=== PATIENT | male | born 1955 | race Caucasian/White ===

== ENCOUNTER 2016-09-17 17:27 | Observation (INO) | payer MEDICARE, OTHER ==
--- NOTE | 2016-09-17 18:14 | ED ---
Extremity Problem HPI - General Source: patient, RN notes reviewed Mode of arrival: ambulatory Limitations: no limitations <Johana Harmon - Last Filed: 09/17/16 19:52> <Laci Syed - Last Filed: 09/17/16 19:59> - General Chief complaint: Extremity Problem,Nontraumatic Stated complaint: poss hernia, groin pain Time Seen by Provider: 09/17/16 18:01 - History of Present Illness Initial comments: 60 yo male presents to the ER with cc of right groin possible hernia. Patient states last night he was lifting something and he felt something pop out of his right groin. Patient states she's had a bulge there. Patient states he believes it is a hernia. Patient states that it does hurt to touch but does not hurt if he sits there. Patient states that he is no tenderness to denies any nausea or vomiting with this. Patient states he was concerned due to his continued symptoms in the vault without that he should be seen.Patient denies any recent fever, chills, shortness of breath, chest pain, back pain, abdominal pain, nausea vomiting, numbness or tingling, dysuria or hematuria, constipation or diarrhea, headaches or visual changes, or any other current symptoms. (Johana Harmon) - Related Data Home Medications Medication Instructions Recorded Confirmed Albuterol Inhaler [Ventolin Hfa 2 puff INHALATION RT-Q6H PRN 09/17/16 09/17/16 Inhaler] Atenolol [Atenolol] 50 mg PO DAILY 09/17/16 09/17/16 Dextroamphetamine/Amphetamine 30 mg PO BID 09/17/16 09/17/16 [Adderall] Diazepam [Diazepam] 10 mg PO BID PRN 09/17/16 09/17/16 Hydrocodone/Acetaminophen 1 tab PO BID 09/17/16 09/17/16 [Hydrocodon-Acetaminophn 10-325] oxyCODONE HCL 30 mg PO 5XD 09/17/16 09/17/16 Allergies Allergy/AdvReac Type Severity Reaction Status Date / Time No Known Allergies Allergy Verified 09/17/16 18:10 Review of Systems ROS Other: All systems not noted in ROS Statement are negative. <Johana Harmon - Last Filed: 09/17/16 19:52> ROS Other: All systems not noted in ROS Statement are negative. <Laci Syed - Last Filed: 09/17/16 19:59> ROS Statement: Those systems with pertinent positive or pertinent negative responses have been documented in the HPI. (Johana Harmon) (Laci Syed) Past Medical History Past Medical History: Asthma, Hypertension Additional Past Medical History / Comment(s): back pain History of Any Multi-Drug Resistant Organisms: None Reported Past Surgical History: Back Surgery, Joint Replacement, Orthopedic Surgery Past Psychological History: No Psychological Hx Reported Smoking Status: Never smoker Past Alcohol Use History: None Reported Past Drug Use History: None Reported <Johana Harmon - Last Filed: 09/17/16 19:52> General Exam Limitations: no limitations General appearance: alert, in no apparent distress Eye exam: Present: normal appearance, PERRL, EOMI. Absent: scleral icterus, conjunctival injection, periorbital swelling ENT exam: Present: normal exam, mucous membranes moist Neck exam: Present: normal inspection. Absent: tenderness, meningismus, lymphadenopathy Respiratory exam: Present: normal lung sounds bilaterally. Absent: respiratory distress, wheezes, rales, rhonchi, stridor Cardiovascular Exam: Present: regular rate, normal rhythm, normal heart sounds. Absent: systolic murmur, diastolic murmur, rubs, gallop, clicks GI/Abdominal exam: Present: soft, normal bowel sounds, hernia (Right inguinal groin). Absent: distended, tenderness, guarding, rebound, rigid Extremities exam: Present: normal inspection, full ROM, normal capillary refill. Absent: tenderness, pedal edema, joint swelling, calf tenderness Neurological exam: Present: alert, oriented X3, CN II-XII intact. Absent: motor sensory deficit Psychiatric exam: Present: normal affect, normal mood Skin exam: Present: warm, dry, intact, normal color. Absent: rash <Johana Harmon - Last Filed: 09/17/16 19:52> Medical Decision Making - Radiology Data Radiology results: report reviewed, image reviewed <Johana Harmon - Last Filed: 09/17/16 19:52> <Laci Syed - Last Filed: 09/17/16 19:59> - Medical Decision Making 60-year-old male presents emergency Department chief complaint of right inguinal what appears to be a hernia on exam. We will ultrasound the area and ice the area and see if we can reduce it. At this time the ultrasound was shown that it isn't incarcerated hernia and patient was unable to be reduced in the emergency department. We discussed the case with Dr. Hopper and would like Labs states for the patient and admission. She also like an abdominal x- ray ordered. This time we will do this patient will receive pain medication he will be admitted placed nothing by mouth to Dr. Hopper. The case was discussed the patient is in agreement of the plan. (Johana Harmon) The patient presents with what appears to be an incarcerated hernia. I tried to reduce for over 20 minutes without significant change in the size of the hernia. Ultrasound showed what appears to be incarcerated hernia. The case discussed with Dr. Hopper on-call general surgeon patient will be admitted to her service with labs and x-ray. The patient be kept nothing by mouth. Dr. Syed (Laci Syed) Disposition Time of Disposition: 19:53 Decision Date: 09/17/16 Decision Time: 19:53 <Johana Harmon - Last Filed: 09/17/16 19:52> <Laci Syed - Last Filed: 09/17/16 19:59> Clinical Impression: Incarcerated right inguinal hernia Disposition: [facility] Condition: Stable Referrals: Farrukh Rosenbaum MD [Primary Care Provider] - 1-2 days
--- NOTE | 2016-09-17 19:19 | US ---
EXAMINATION TYPE: US groin extremity RT DATE OF EXAM: 09/17/2016 6:25 PM COMPARISON: NONE CLINICAL HISTORY: Patient states known hernia from 1 year ago that he was able to push back in, lifti ng weight today and felt "pop" again. Patient is pain with obvious right inguinal bulge. TECHNOLOGIST IMPRESSION: 4.7cm probable hernia with a fluid component seen. Valsalva does not change appearance at all, area never moved and no peristalsing seen. With fluid noted I question strangulat ed hernia within right groin IMPRESSION: Positive study suggesting incarcerated bowel loop. Would suggest confirmation with CT.
[2016-09-17] MEDS ORDERED: HYDROmorphone 1 MG/ML 1 ML SYRINGE IVP STA (19:26)
[2016-09-17] MEDS ORDERED: SODIUM CHLORIDE 0.9% 1,000 ML IV STA ×2 (19:42)
[2016-09-17] MEDS ORDERED: HYDROcodone/APAP 5-325MG 1 EACH TAB PO PRN (19:54)
[2016-09-17] MEDS ORDERED: NALOXONE 0.4 MG/ML 1 ML VIAL IV PRN (19:54)
[2016-09-17] MEDS ORDERED: ACETAMINOPHEN TAB 325 MG TAB PO PRN (19:54)
[2016-09-17] MEDS ORDERED: HYDROmorphone 1 MG/ML 1 ML SYRINGE IV PRN (19:54)
[2016-09-17] MEDS ORDERED: ONDANSETRON 4 MG/2 ML VIAL IVP PRN (19:54)
[2016-09-17] MEDS ORDERED: ALBUTEROL NEBULIZED 2.5 MG/3 ML INHALATION PRN (19:55)
[2016-09-17] MEDS ORDERED: DIAZEPAM 5 MG TAB PO PRN (19:55)
[2016-09-17 20:06] LABS: Basophils # (A) 0.1 k/uL (0-0.2); Basophils % (A) 1 %; CH 30.9; CHCM 33.8; Eosinophils # (A) 0.2 k/uL (0-0.7); Eosinophils % (A) 3 %; HCT 40.8 % (39.0-53.0); HDW 2.44; HGB 13.3 gm/dL (13.0-17.5); Luc # (Auto) 0.09; Luc % (Auto) 1; Lymphocytes # (A) 0.8 k/uL (1.0-4.8); Lymphocytes % (A) 13 %; MCH 30.1 pg (25.0-35.0); MCHC 32.7 g/dL (31.0-37.0); Mean Platelet Volume 8.2; Monocytes # (A) 0.3 k/uL (0-1.0); Monocytes % (A) 4 %; Neutrophils # (A) 5.2 k/uL (1.3-7.7); Neutrophils % (A) 78 %; RBC 4.43 m/uL (4.30-5.90); RDW 13.3 % (11.5-15.5); WBC 6.6 k/uL (3.8-10.6); WBC (Perox) 7.15
[2016-09-17 20:19] LABS: ALT 38 U/L (21-72); AST 31 U/L (17-59); Alkaline Phosphatase 79 U/L (38-126); Anion Gap 11 mmol/L; Blood Urea Nitrogen 15 mg/dL (9-20); Calcium 8.8 mg/dL (8.4-10.2); Carbon Dioxide 26 mmol/L (22-30); Chloride 106 mmol/L (98-107); Glucose 96 mg/dL (74-99); Non-African American GFR(MDRD) >60 (>60 ml/min/1.73 sqM); Potassium 4.1 mmol/L (3.5-5.1); Sodium 143 mmol/L (137-145); Total Bilirubin 0.6 mg/dL (0.2-1.3); Total Protein 6.4 g/dL (6.3-8.2)
--- NOTE | 2016-09-17 20:57 | XR ---
EXAMINATION TYPE: XR abdomen 2V DATE OF EXAM: 09/17/2016 8:03 PM COMPARISON: NONE HISTORY: Right-sided groin pain TECHNIQUE: 3 views, upright and supine FINDINGS: There is no pneumoperitoneum or definite pneumatosis. Gas distended loops of bowel are seen in all 4 quadrants, but no definite bowel obstruction. No gas filled bowel loop is noted over the ri ght groin position. Visualized lung bases and pleural spaces are negative. IMPRESSION: NO DEFINITE ACUTE FINDINGS, NONSPECIFIC SCATTERED FINDINGS DESCRIBED.
[2016-09-17] MEDS ORDERED: NON-FORMULARY DRUG (Dextroamphetamine/Amphetamine [Adderall] 30 MG) PO SCH (21:00)
[2016-09-17] MEDS ORDERED: HYDROcodone/APAP 10-325MG 1 EACH TAB PO SCH (21:00)
[2016-09-17 21:42] VITALS: BMI 25.7
[2016-09-18 08:16] LABS: ALT 34 U/L (21-72); AST 24 U/L (17-59); Alkaline Phosphatase 65 U/L (38-126); Anion Gap 9 mmol/L; Blood Urea Nitrogen 12 mg/dL (9-20); Calcium 8.3 mg/dL (8.4-10.2); Carbon Dioxide 30 mmol/L (22-30); Chloride 105 mmol/L (98-107); Glucose 88 mg/dL (74-99); Non-African American GFR(MDRD) >60 (>60 ml/min/1.73 sqM); Potassium 4.5 mmol/L (3.5-5.1); Sodium 144 mmol/L (137-145); Total Bilirubin 0.8 mg/dL (0.2-1.3); Total Protein 5.7 g/dL (6.3-8.2)
[2016-09-18] MEDS ORDERED: ATENOLOL 50 MG TAB PO SCH (09:00)
[2016-09-18 09:11] LABS: Basophils % (A) 0 %; CH 30.3; CHCM 32.4; Eosinophils # (A) 0.2 k/uL (0-0.7); Eosinophils % (A) 4 %; HCT 39.1 % (39.0-53.0); HDW 2.37; HGB 12.8 gm/dL (13.0-17.5); Luc # (Auto) 0.12; Luc % (Auto) 2; Lymphocytes # (A) 1.6 k/uL (1.0-4.8); Lymphocytes % (A) 25 %; MCH 30.7 pg (25.0-35.0); MCHC 32.7 g/dL (31.0-37.0); MCV 93.9 fL (80.0-100.0); Mean Platelet Volume 7.6; Monocytes # (A) 0.3 k/uL (0-1.0); Monocytes % (A) 4 %; Neutrophils # (A) 4.1 k/uL (1.3-7.7); Neutrophils % (A) 65 %; RBC 4.16 m/uL (4.30-5.90); RDW 13.1 % (11.5-15.5); WBC 6.3 k/uL (3.8-10.6); WBC (Perox) 6.69
--- NOTE | 2016-09-18 09:24 | P.GSHP ---
History of Present Illness H&P Date: 09/18/16 CHIEF COMPLAINT: Incarcerated right inguinal hernia. HISTORY OF PRESENT ILLNESS: The patient is a 60-year-old male who presented with known history of right inguinal hernia. He has no previous history of prior groin surgery. He is a previuos gastric bypass patient from over 15 years ago. His highest weight was 350-lbs. He has maintained his weight loss of over 150-lbs. He presented with acute swelling of the right groin and has been unable to reduce his hernia. He reports pain. He was admitted secondary to increased pain. PAST MEDICAL HISTORY: Please see list. PAST SURGICAL HISTORY: Please see list. MEDICATIONS: Please see list. ALLERGIES: Please see list. SOCIAL HISTORY: No illicit drug use FAMILY HISTORY: No reports of Crohn disease or ulcerative colitis. REVIEW OF ORGAN SYSTEMS: CONSTITUTIONAL: No reports of fevers or chills. PHYSICAL EXAM: VITAL SIGNS: Stable GENERAL: Well-developed pleasant in no acute distress. HEENT: No scleral icterus. Extraocular movements grossly intact. Moist buccal mucosa. NECK: Supple without lymphadenopathy. CHEST: Unlabored respirations. Equal bilateral excursions. CARDIOVASCULAR: Regular rate and rhythm. Distal 2+ pulses. ABDOMEN: Soft. Swelling along left groin with incarcerated inguinal hernia. MUSCULOSKELETAL: No clubbing, cyanosis, or edema. ASSESSMENT: 1. Acute incarcerated right inguinal hernia. PLAN: 1. Recommend proceeding with laparoscopic bilateral ingiunal hernia, possible open with mesh placement. Past Medical History Past Medical History: Asthma, Hypertension Additional Past Medical History / Comment(s): back pain, hepatitis C History of Any Multi-Drug Resistant Organisms: None Reported Past Surgical History: Back Surgery, Joint Replacement, Orthopedic Surgery Past Psychological History: No Psychological Hx Reported Smoking Status: Former smoker Past Alcohol Use History: None Reported Past Drug Use History: Marijuana Additional Drug Use History / Comment(s): states occational marijuana use Medications and Allergies Home Medications Medication Instructions Recorded Confirmed Type Albuterol Inhaler [Ventolin Hfa 2 puff INHALATION RT-Q6H PRN 09/17/16 09/17/16 History Inhaler] Atenolol [Atenolol] 50 mg PO DAILY 09/17/16 09/17/16 History Dextroamphetamine/Amphetamine 30 mg PO BID 09/17/16 09/17/16 History [Adderall] Diazepam [Diazepam] 10 mg PO BID PRN 09/17/16 09/17/16 History Hydrocodone/Acetaminophen 1 tab PO BID 09/17/16 09/17/16 History [Hydrocodon-Acetaminophn 10-325] oxyCODONE HCL 30 mg PO 5XD 09/17/16 09/17/16 History Allergies Allergy/AdvReac Type Severity Reaction Status Date / Time No Known Allergies Allergy Verified 09/17/16 18:10 Surgical - Exam Vital Signs Temp Pulse Resp BP Pulse Ox 97.0 F L 69 16 158/87 96 09/17/16 17:43 09/17/16 17:43 09/17/16 17:43 09/17/16 17:43 09/17/16 17:43 Results - Labs 09/18/16 07:19 09/18/16 07:19 Abnormal Lab Results - Last 24 Hours (Table) 09/18/16 Range/Units 07:19 Calcium 8.3 L (8.4-10.2) mg/dL Total Protein 5.7 L (6.3-8.2) g/dL Albumin 3.3 L (3.5-5.0) g/dL Diabetes panel 09/17/16 09/18/16 Range/Units 20:00 07:19 Sodium 143 144 (137-145) mmol/L Potassium 4.1 4.5 (3.5-5.1) mmol/L Chloride 106 105 (98-107) mmol/L Carbon Dioxide 26 30 (22-30) mmol/L BUN 15 12 (9-20) mg/dL Creatinine 0.89 0.93 (0.66-1.25) mg/dL Glucose 96 88 (74-99) mg/dL Calcium 8.8 8.3 L (8.4-10.2) mg/dL AST 31 24 (17-59) U/L ALT 38 34 (21-72) U/L Alkaline Phosphatase 79 65 (38-126) U/L Total Protein 6.4 5.7 L (6.3-8.2) g/dL Albumin 3.8 3.3 L (3.5-5.0) g/dL Calcium panel 09/17/16 09/18/16 Range/Units 20:00 07:19 Calcium 8.8 8.3 L (8.4-10.2) mg/dL Albumin 3.8 3.3 L (3.5-5.0) g/dL Pituitary panel 09/17/16 09/18/16 Range/Units 20:00 07:19 Sodium 143 144 (137-145) mmol/L Potassium 4.1 4.5 (3.5-5.1) mmol/L Chloride 106 105 (98-107) mmol/L Carbon Dioxide 26 30 (22-30) mmol/L BUN 15 12 (9-20) mg/dL Creatinine 0.89 0.93 (0.66-1.25) mg/dL Glucose 96 88 (74-99) mg/dL Calcium 8.8 8.3 L (8.4-10.2) mg/dL Adrenal panel 09/17/16 09/18/16 Range/Units 20:00 07:19 Sodium 143 144 (137-145) mmol/L Potassium 4.1 4.5 (3.5-5.1) mmol/L Chloride 106 105 (98-107) mmol/L Carbon Dioxide 26 30 (22-30) mmol/L BUN 15 12 (9-20) mg/dL Creatinine 0.89 0.93 (0.66-1.25) mg/dL Glucose 96 88 (74-99) mg/dL Calcium 8.8 8.3 L (8.4-10.2) mg/dL Total Bilirubin 0.6 0.8 (0.2-1.3) mg/dL AST 31 24 (17-59) U/L ALT 38 34 (21-72) U/L Alkaline Phosphatase 79 65 (38-126) U/L Total Protein 6.4 5.7 L (6.3-8.2) g/dL Albumin 3.8 3.3 L (3.5-5.0) g/dL
[2016-09-18] MEDS ORDERED: HEPARIN SODIUM,PORCINE 5,000 UNIT/ML 1 ML VIAL SQ ONE (12:43)
[2016-09-18] MEDS ORDERED: BUPIVACAINE LIPOSOME/PF 1.3% 20 ML, BUPIVACAIN-EPI 0.5%-1:200,000 25 ML, SODIUM CHLORID... MISCELLANE ONE ×3 (12:43)
[2016-09-18] MEDS ORDERED: IV FLUID CONTINUATION 1,000 ML IV ONE (13:14)
[2016-09-18] MEDS ORDERED: fentaNYL (PF) 50 MCG/ML 2 ML AMP ONE (13:50)
[2016-09-18] MEDS ORDERED: NEOSTIGMINE 1 MG/ML 10 ML VIAL ONE (13:50)
[2016-09-18] MEDS ORDERED: GLYCOPYRROLATE 0.2 MG/ML 2 ML VIAL ONE (13:50)
[2016-09-18] MEDS ORDERED: LIDOCAINE 1% INJ 10MG/ML (20 ML MDV) ONE (13:50)
[2016-09-18] MEDS ORDERED: ceFAZolin 1,000 MG VIAL ONE (13:50)
[2016-09-18] MEDS ORDERED: ePHEDrine 50 MG/ML 1 ML AMP ONE (13:50)
[2016-09-18] MEDS ORDERED: PROPOFOL 10 MG/ML 20 ML VIAL IV ONE (13:50)
[2016-09-18] MEDS ORDERED: MIDAZOLAM 2 MG/2 ML VIAL ONE (13:50)
[2016-09-18] MEDS ORDERED: MEPERIDINE 50 MG/ML SYRINGE ONE (13:50)
[2016-09-18] MEDS ORDERED: PHENYLEPHRINE-0.9% NACL SYG 1 MG/10 ML SYRINGE ONE (13:50)
[2016-09-18] MEDS ORDERED: ROCURONIUM BROMIDE 10 MG/ML 10 ML VIAL IV ONE (13:50)
[2016-09-18] MEDS: ceFAZolin 2 GM in SODIUM CHLORIDE 0.9% 100 ML IVPB STA ×2 (14:05→17:15)
[2016-09-18] MEDS: LACTATED RINGERS 1,000 ML IV ONE ×4 (14:13→17:15)
[2016-09-18] MEDS ORDERED: LACTATED RINGERS 1,000 ML IV ONE (15:02)
--- NOTE | 2016-09-18 15:22 | P.PCN ---
Date of Procedure: 09/18/16 Preoperative Diagnosis: Right incarcerated inguinal hernia, initial Postoperative Diagnosis: Right strangulated direct inguinal hernia, initial Procedure(s) Performed: Laparoscopic reduction of strangulated right inguinal hernia, repair without mesh; partial omentectomy Anesthesia: GETA, local Surgeon: Agnes Cordero Estimated Blood Loss (ml): 20 Pathology: other (Strangulate a right inguinal hernia sac with omentum) Condition: stable Disposition: floor Operative Findings: Incarcerated right inguinal hernia with omentum, no bowel involvement, strangulated right inguinal hernia direct containing omentum resected. Mesh repair deferred secondary to contamination of case from strangulated tissue.
[2016-09-18] MEDS ORDERED: TAMSULOSIN 0.4 MG CAP.ER.24H PO STA (15:25)
[2016-09-18 17:30] VITALS: RESP 16
[2016-09-18] MEDS ORDERED: ceFAZolin 2 GM in SODIUM CHLORIDE 0.9% 100 ML IVPB ONE (18:23)
--- NOTE | 2016-09-18 19:18 | P.PN ---
Progress Note - Text Patient is clinically doing well this evening. "I feel great." Patient may be discharged. He is on a pain contract. He will obtain his pain medication and narcotics from his primary care provider.
--- NOTE | 2016-09-18 19:19 | P.DS ---
Providers Date of admission: 09/17/16 19:54 Expected date of discharge: 09/18/16 Attending physician: Agnes Cordero Primary care physician: Farrukh Rosenbaum - Discharge Diagnosis(es) (1) Strangulated inguinal hernia Status: Acute (2) Chronic pain syndrome Status: Chronic (3) Hypertensive heart disease Status: Chronic (4) Right groin pain Status: Acute Hospital Course: POSTOPERATIVE DIAGNOSES: 1. Right lower quadrant abdominal pain. 2. Right incarcerated inguinal hernia, initial, direct. 3. Essential hypertension. 4. Attention deficit hyperactivity disorder. 5. Right strangulated inguinal hernia, initial with involvement of omentum. 6. Necrosis of greater omentum at right lower quadrant. INDICATIONS: The patient is a 60-year-old male with acute swelling and known history of right inguinal hernia. Despite attempts, the right inguinal hernia cannot be reduced. He developed skin to just along the groin consistent which translated hernia. Secondary to his clinical findings, urgent surgical intervention was sought. Surgical options were discussed including open versus laparoscopic technique and he elected for laparoscopic technique. Benefits and risks including bleeding, infection, recurrence, as well as chronic pain and placement of mesh were described. Informed consent was obtained. Pertinent Studies: Abdominal x-ray demonstrates no obstruction. Scrotal ultrasound demonstrates right groin hernia possibly involving small bowel. Procedures: OPERATION: 1. Laparoscopic reduction of strangulated right inguinal hernia. 2. Laparoscopic right inguinal hernia repair via transabdominal approach without mesh. 3. Partial omentectomy. Patient Condition at Discharge: Stable Plan - Discharge Summary Discharge Medication List Albuterol Inhaler [Ventolin Hfa Inhaler] 2 puff INHALATION RT-Q6H PRN 09/17/16 [ History] Atenolol [Atenolol] 50 mg PO DAILY 09/17/16 [History] Dextroamphetamine/Amphetamine [Adderall] 30 mg PO BID 09/17/16 [History] Diazepam [Diazepam] 10 mg PO BID PRN 09/17/16 [History] Hydrocodone/Acetaminophen [Hydrocodon-Acetaminophn 10-325] 1 tab PO BID [History] oxyCODONE HCL 30 mg PO 5XD 09/17/16 [History] Follow up Appointment(s)/Referral(s): Farrukh Rosenbaum MD [Primary Care Provider] - 1-2 days (Office closed at time of discharge. Patient to call and schedule follow up appointment.) Agnes Cordero MD [STAFF PHYSICIAN] - 09/25/16 (Office closed. Patient to call and schedule follow up appointment.) Patient Instructions/Handouts: Laparoscopic Herniorrhaphy (DC), Inguinal Hernia Repair (DC) Activity/Diet/Wound Care/Special Instructions: No lifting over 4 pounds in 4 weeks. Discharge Disposition: HOME SELF-CARE
[2016-09-18 19:52] VITALS: BP 125/76; PULSE 85; TEMP 98.2
--- NOTE | 2016-10-14 15:12 | P.OP ---
Date of Procedure: 09/18/16 Description of Procedure: SURGEON: YARELIS CHANEY MD MARKET RESEARCH MANAGER: None. PREOPERATIVE DIAGNOSIS: 1. Right lower quadrant abdominal pain. 2. Right incarcerated inguinal hernia, initial. 3. Essential hypertension. 4. Attention deficit hyperactivity disorder. POSTOPERATIVE DIAGNOSES: 1. Right lower quadrant abdominal pain. 2. Right incarcerated inguinal hernia, initial, direct. 3. Essential hypertension. 4. Attention deficit hyperactivity disorder. 5. Right strangulated inguinal hernia, initial with involvement of omentum. 6. Necrosis of greater omentum at right lower quadrant. OPERATION: 1. Laparoscopic reduction of strangulated right inguinal hernia. 2. Laparoscopic right inguinal hernia repair via transabdominal approach without mesh. 3. Partial omentectomy. IMPLANTS: None. ANESTHESIA: General with 85 mL Exparel Sensorcaine and normal saline mixture. ESTIMATED BLOOD LOSS: 20 mL. SPECIMENS: 1. Right inguinal hernia sac and contents. 2. Partial omentectomy. COMPLICATIONS: None. FINDINGS: 1. Incarcerated right inguinal hernia with omentum and without bowel involvement. 2. Strangulated right inguinal hernia direct containing omentum resected. 3. Mesh repair deferred secondary to contamination of case from strangulated tissue. INDICATIONS: The patient is a 60-year-old male with acute swelling and known history of right inguinal hernia. Despite attempts, the right inguinal hernia cannot be reduced. He developed skin to just along the groin consistent which translated hernia. Secondary to his clinical findings, urgent surgical intervention was sought. Surgical options were discussed including open versus laparoscopic technique and he elected for laparoscopic technique. Benefits and risks including bleeding, infection, recurrence, as well as chronic pain and placement of mesh were described. Informed consent was obtained. DESCRIPTION: The patient had voided earlier and was brought into the operating room, laid in supine position. After general induction, the abdomen was prepped and draped in standard sterile fashion and placement of Ioban draping. Prior to incision, a timeout protocol was confirmed with surgical team regarding the patient's name including procedures to be performed. Via the left upper abdomen a 0 degree 5 mm laparoscopic trocar entry was performed after anesthetizing the skin with 0.25% Marcaine with epinephrine and incised using a #11 blade. An optical view trocar entry was performed. Diagnostic laparoscopy demonstrated strangulated right inguinal hernia involving omentum. No inguinal hernia along the left side. The patient tolerated insufflation to 15 mm Hg pressure. Next, one 5 mm trocar and one 11-mm trocar were placed along the left lateral abdominal wall to address the right inguinal defect. The patient was then placed in Trendelenburg position with the right side up. The right inguinal peritoneum was scored medial to the epigastric vessels using electro- Bovie cautery including a combination of cordless Harmonic scalpel. Using continuous retraction as well as external pressure along the right groin, the strangulated omentum of the inguinal canal was reduced into the peritoneal cavity consistent with his palpable mass and swelling of the right external inguinal ring. The specimen was resected and passed off for further pathological analysis. A partial appendectomy was performed as the omentum was closed. The size of the defect was 3 cm with intraoperative films obtained. Using an Endo stitch and 2-0 Surgidac, the peritoneal defect of the right inguinal hernia site was closed using a pursestring suture of 2-0 Surgidac with a Lapra-Ty. The defect was found to be completely closed after removal of the external pressure along the right groin. Complete reduction of the right inguinal hernia was confirmed. As necrotic tissue was removed from the abdomen, mesh placement was deferred to prevent implant infection. The 10-mm port site was closed using Marty Lund 0 Vicryl in an interrupted fashion. Hemostasis was excellent throughout the case. All instruments and pneumoperitoneum were evacuated from the abdominal cavity. All port sites were infiltrated with Exparel and biliateral inguinal field block was also placed. The incisions were reapproximated using 4-0 Monocryl in an interrupted subcuticular fashion. Dermabond was applied to the skin. At the end of the procedure, the needle sponge and instrument count had been verified correct by surgical garment inspector. The patient had tolerated the procedure well and was taken to the postanesthesia care unit in stable condition.
== END 2016-09-18 20:15 | disposition home or self-care (01) ==
LOC: EC 17:27 → 3SUR 19:54
PROVIDERS: ADMIT Surgery Plastic and Reconstructive Surgery; ATTEND Surgery Plastic and Reconstructive Surgery
DX: K40.30 Unilateral inguinal hernia, with obstruction, without gangrene, not specified as recurrent (principal); J45.909 Unspecified asthma, uncomplicated; I10 Essential (primary) hypertension; B19.20 Unspecified viral hepatitis C without hepatic coma; F12.90 Cannabis use, unspecified, uncomplicated; Z87.891 Personal history of nicotine dependence; Z98.84 Bariatric surgery status; Z79.891 Long term (current) use of opiate analgesic; Z79.899 Other long term (current) drug therapy
CPT/HCPCS: 49650; 99285; 96374; 96375; 80053 ×2; 83605; 85025 ×2; 88302; 74020; 76882; G0378 ×2; C1781; J2250; J1644; J2710; J2175; J0690 ×2; J2405; J2001; J3010; J1170; J2370; C9290; J2704

== ENCOUNTER → 2017-03-01 | Outpatient (CLI) | payer MEDICARE ==
[2017-03-01 11:43] LABS: Basophils # (A) 0.1 k/uL (0-0.2); Basophils % (A) 1 %; CH 29.3; CHCM 32.8; Eosinophils # (A) 0.3 k/uL (0-0.7); Eosinophils % (A) 3 %; HCT 44.5 % (39.0-53.0); HDW 2.46; HGB 14.6 gm/dL (13.0-17.5); Luc # (Auto) 0.14; Luc % (Auto) 2; Lymphocytes # (A) 1.8 k/uL (1.0-4.8); Lymphocytes % (A) 23 %; MCH 29.4 pg (25.0-35.0); MCHC 32.7 g/dL (31.0-37.0); MCV 89.8 fL (80.0-100.0); Mean Platelet Volume 7.3; Monocytes # (A) 0.4 k/uL (0-1.0); Monocytes % (A) 5 %; Neutrophils # (A) 5.3 k/uL (1.3-7.7); Neutrophils % (A) 67 %; RBC 4.96 m/uL (4.30-5.90); RDW 13.8 % (11.5-15.5); WBC 7.9 k/uL (3.8-10.6); WBC (Perox) 7.74
[2017-03-01 11:55] LABS: ALT 30 U/L (21-72); AST 26 U/L (17-59); Alkaline Phosphatase 78 U/L (38-126); Anion Gap 12 mmol/L; Blood Urea Nitrogen 17 mg/dL (9-20); Calcium 10.1 mg/dL (8.4-10.2); Carbon Dioxide 28 mmol/L (22-30); Chloride 105 mmol/L (98-107); Glucose 114 mg/dL (74-99); Non-African American GFR(MDRD) >60 (>60 ml/min/1.73 sqM); Potassium 5.5 mmol/L (3.5-5.1); Sodium 145 mmol/L (137-145); Total Protein 7.7 g/dL (6.3-8.2)
[2017-03-04 08:23] LABS: HCV Qualitative Result Not detected (Not detected)
== END | disposition home or self-care (01) ==
LOC: LABWHC1 11:18
DX: B18.2 Chronic viral hepatitis C (principal)
CPT/HCPCS: 36415; 80053; 85025; 87522

== ENCOUNTER 2017-03-09 12:09 | Emergency (ER) | payer MEDICARE, OTHER ==
[2017-03-09 12:13] VITALS: RESP 18
[2017-03-09] MEDS ORDERED: ONDANSETRON 4 MG/2 ML VIAL IVP STA (12:43)
[2017-03-09] MEDS ORDERED: MORPHINE SULFATE 4 MG/ML SYRINGE IV STA (12:43)
--- NOTE | 2017-03-09 12:58 | ED ---
General Adult HPI - General Chief complaint: Abdominal Pain Stated complaint: Back Pain, Nausea Source: patient, RN notes reviewed Mode of arrival: ambulatory Limitations: no limitations - History of Present Illness Initial comments: Carlos MATSON 1-year-old male with past medical history of chronic back pain on chronic narcotics. Presents to the ED today with complaint of left-sided low back pain which is so severe it is causing him nausea. Patient reports that 2 days ago his prescription for Oxycodone was stolen, he reports that the police are made aware of this but he has been unable to follow up with his primary care physician for a prescription he has therefore been out of his pain medications since . Patient reports that this pain is similar in character to previous episodes of his chronic low back pain, however his pain is usually on the right and today is on the left. Pain is described is a dull ache that is continuous. He reports the pain is been so severe this morning it is made him nauseated and he has had episodes of dry heaves and an episode of nonbloody nonbilious emesis. He reports he has tried stretching and rest with no improvement in the pain. Patient denies fevers, chills, chest pain, shortness of breath or change in bowel or bladder habits. He's been ambulatory with no weakness in his legs since the onset of back pain. -: days(s) Location: back Radiation: non-radiation Quality: aching Consistency: constant Improves with: none Worsens with: movement Associated Symptoms: nausea/vomiting Treatments Prior to Arrival: none - Related Data Home Medications Medication Instructions Recorded Confirmed Albuterol Inhaler [Ventolin Hfa 2 puff INHALATION RT-Q6H PRN 09/17/16 03/09/17 Inhaler] Atenolol [Atenolol] 50 mg PO DAILY 09/17/16 03/09/17 Diazepam [Diazepam] 10 mg PO BID PRN 09/17/16 03/09/17 Hydrocodone/Acetaminophen 1 tab PO TID PRN 09/17/16 03/09/17 [Hydrocodon-Acetaminophn 10-325] oxyCODONE HCL 30 mg PO 5XD 09/17/16 03/09/17 Previous Rx's Medication Instructions Recorded Ondansetron Odt [Zofran Odt] 4 mg PO Q8HR PRN #10 tab 03/09/17 Tamsulosin [Flomax] 0.4 mg PO DAILY #7 cap 03/09/17 oxyCODONE HCL 30 mg PO Q6HR PRN #15 tab 03/09/17 Allergies Allergy/AdvReac Type Severity Reaction Status Date / Time No Known Allergies Allergy Verified 03/09/17 12:34 Review of Systems ROS Statement: Those systems with pertinent positive or pertinent negative responses have been documented in the HPI. ROS Other: All systems not noted in ROS Statement are negative. Constitutional: Reports: as per HPI Respiratory: Denies: dyspnea Cardiovascular: Denies: chest pain Gastrointestinal: Reports: nausea, vomiting. Denies: abdominal pain, diarrhea, constipation Genitourinary: Denies: frequency, hematuria Musculoskeletal: Reports: as per HPI, back pain Neurological: Denies: weakness, numbness, paresthesias, abnormal gait Past Medical History Past Medical History: Asthma, Hypertension Additional Past Medical History / Comment(s): back pain, hepatitis C History of Any Multi-Drug Resistant Organisms: None Reported Past Surgical History: Back Surgery, Joint Replacement, Orthopedic Surgery Past Psychological History: No Psychological Hx Reported Smoking Status: Former smoker Past Alcohol Use History: None Reported Past Drug Use History: None Reported General Exam Limitations: no limitations General appearance: alert, in no apparent distress Head exam: Present: atraumatic, normocephalic, normal inspection Eye exam: Present: normal appearance, PERRL, EOMI. Absent: scleral icterus, conjunctival injection, periorbital swelling Neck exam: Present: normal inspection. Absent: tenderness, meningismus, lymphadenopathy Respiratory exam: Present: normal lung sounds bilaterally. Absent: respiratory distress, wheezes, rales, rhonchi, stridor Cardiovascular Exam: Present: bradycardia GI/Abdominal exam: Present: soft, normal bowel sounds. Absent: distended, tenderness, guarding, rebound, rigid Rectal exam: Present: deferred Extremities exam: Present: normal inspection, full ROM, normal capillary refill. Absent: tenderness, pedal edema, joint swelling, calf tenderness Back exam: Present: full ROM, muscle spasm Neurological exam: Present: alert, oriented X3 Skin exam: Present: warm, dry, other (multiple tattoos). Absent: rash, cyanosis , diaphoretic, erythema, vesicles, petechiae, pallor Course Vital Signs 03/09/17 03/09/17 12:11 13:12 Temperature 96.9 F L Pulse Rate 46 L 50 L Respiratory 18 18 Rate Blood Pressure 186/81 168/78 O2 Sat by Pulse 99 97 Oximetry - Reevaluation(s) Reevaluation #1: Patient reevaluated, resting comfortably in bed. Reports resolution of back pain after IV morphine. Labs are still pending advised patient were waiting for. Patient requesting juice, given a cup of juice. 03/09/17 14:16 Reevaluation #2: Labs reviewed, UA reveals gross hematuria, patient has no history of kidney stones. Computed tomography scan ordered. Patient updated on plan. Patient remains pain-free resting comfortably in bed. 03/09/17 14:41 Reevaluation #3: 03/09/17 15:39 CT results were reviewed and reveal multiple bilateral renal calculi with left hydronephrosis. Patient was reevaluated, noted to be sleeping comfortably in bed. Results were discussed with the patient. Patient has been tolerating by mouth and is without pain. Advised that he will be discharged home with by mouth narcotics for pain management, Flomax and Zofran for nausea. Medical Decision Making - Medical Decision Making Patient was seen and evaluated upon arrival, patient with left flank pain and chronic back pain. Labs were ordered. Morphine was ordered for analgesia and Zofran for nausea Urinalysis revealed gross hematuria at which time a computed tomography scan was ordered to evaluate for renal calculi Patient was without pain and tolerating by mouth intake Computed tomography scan revealed multiple bilateral renal calculi with left hydronephrosis and a UVJ stone, patient continued to remain pain-free and tolerating oral intake All results were discussed with the patient, questions were answered and patient was discharged home with oral analgesics, Flomax and Zofran. Patient was advised to return to the ED for any worsening pain, inability to tolerate by mouth medications, fever, chills or any signs or symptoms he considered concerning. - Lab Data Result diagrams: 03/09/17 13:10 03/09/17 13:10 Lab Results 03/09/17 03/09/17 03/09/17 Range/Units 13:10 13:10 13:10 WBC 11.1 H (3.8-10.6) k/uL RBC 4.77 (4.30-5.90) m/uL Hgb 14.2 (13.0-17.5) gm/dL Hct 43.7 (39.0-53.0) % MCV 91.6 (80.0-100.0) fL MCH 29.8 (25.0-35.0) pg MCHC 32.6 (31.0-37.0) g/dL RDW 13.9 (11.5-15.5) % Plt Count 228 (150-450) k/uL Neutrophils % 84 % Lymphocytes % 9 % Monocytes % 4 % Eosinophils % 2 % Basophils % 0 % Neutrophils # 9.3 H (1.3-7.7) k/uL Lymphocytes # 1.0 (1.0-4.8) k/uL Monocytes # 0.5 (0-1.0) k/uL Eosinophils # 0.2 (0-0.7) k/uL Basophils # 0.0 (0-0.2) k/uL Sodium 141 (137-145) mmol/L Potassium 4.9 (3.5-5.1) mmol/L Chloride 104 (98-107) mmol/L Carbon Dioxide 28 (22-30) mmol/L Anion Gap 9 mmol/L BUN 16 (9-20) mg/dL Creatinine 1.10 (0.66-1.25) mg/dL Est GFR (MDRD) Af Amer >60 (>60 ml/min/1.73 sqM) Est GFR (MDRD) Non-Af >60 (>60 ml/min/1.73 sqM) Glucose 145 H (74-99) mg/dL Calcium 9.0 (8.4-10.2) mg/dL Total Bilirubin 0.7 (0.2-1.3) mg/dL AST 29 (17-59) U/L ALT 24 (21-72) U/L Alkaline Phosphatase 79 (38-126) U/L Total Protein 7.0 (6.3-8.2) g/dL Albumin 4.2 (3.5-5.0) g/dL Urine Color Yellow Urine Appearance Clear (Clear) Urine pH 5.5 (5.0-8.0) Ur Specific [place] 1.014 (1.001-1.035) Urine Protein Trace H (Negative) Urine Glucose (UA) Negative (Negative) Urine Ketones Negative (Negative) Urine Blood Large H (Negative) Urine Nitrite Negative (Negative) Urine Bilirubin Negative (Negative) Urine Urobilinogen <2.0 (<2.0) mg/dL Ur Leukocyte Esterase Negative (Negative) Urine RBC >182 H (0-5) /hpf Urine WBC 13 H (0-5) /hpf Urine Mucus Rare H (None) /hpf Disposition Clinical Impression: Calculus of kidney Disposition: HOME SELF-CARE Condition: Good Instructions: Kidney Stones (ED) Prescriptions: Ondansetron Odt [Zofran Odt] 4 mg PO Q8HR PRN #10 tab PRN Reason: Nausea oxyCODONE HCL 30 mg PO Q6HR PRN #15 tab PRN Reason: Pain Tamsulosin [Flomax] 0.4 mg PO DAILY #7 cap Referrals: Farrukh Rosenbaum MD [Primary Care Provider] - 1-2 days
[2017-03-09 13:35] LABS: Basophils % (A) 0 %; CH 29.6; CHCM 32.4; Eosinophils # (A) 0.2 k/uL (0-0.7); Eosinophils % (A) 2 %; HCT 43.7 % (39.0-53.0); HGB 14.2 gm/dL (13.0-17.5); Luc # (Auto) 0.11; Luc % (Auto) 1; Lymphocytes % (A) 9 %; MCH 29.8 pg (25.0-35.0); MCHC 32.6 g/dL (31.0-37.0); MCV 91.6 fL (80.0-100.0); Mean Platelet Volume 7.7; Monocytes # (A) 0.5 k/uL (0-1.0); Monocytes % (A) 4 %; Neutrophils # (A) 9.3 k/uL (1.3-7.7); Neutrophils % (A) 84 %; RBC 4.77 m/uL (4.30-5.90); RDW 13.9 % (11.5-15.5); WBC 11.1 k/uL (3.8-10.6); WBC (Perox) 10.97
[2017-03-09 13:48] LABS: ALT 24 U/L (21-72); AST 29 U/L (17-59); Alkaline Phosphatase 79 U/L (38-126); Anion Gap 9 mmol/L; Blood Urea Nitrogen 16 mg/dL (9-20); Carbon Dioxide 28 mmol/L (22-30); Chloride 104 mmol/L (98-107); Glucose 145 mg/dL (74-99); Non-African American GFR(MDRD) >60 (>60 ml/min/1.73 sqM); Potassium 4.9 mmol/L (3.5-5.1); Sodium 141 mmol/L (137-145); Total Bilirubin 0.7 mg/dL (0.2-1.3)
[2017-03-09 13:57] LABS: Appearance,Urine Clear (Clear); Bilirubin,Urine Negative (Negative); Glucose,Urine (UA) Negative (Negative); Ketones,Urine Negative (Negative); Leukocyte Esterase,Urine Negative (Negative); Mucus,Urine Rare /hpf; Nitrite,Urine Negative (Negative); PH, Urine 5.5 (5.0-8.0); Particle Count 3202; Protein,Urine Trace (Negative); RBC,Urine >182 /hpf (0-5); Specific Gravity,Urine 1.014 (1.001-1.035); UA Billing (MACRO vs. MICRO) MICRO; Urobilinogen,Urine <2.0 mg/dL (<2.0); WBC,Urine 13 /hpf (0-5)
--- NOTE | 2017-03-09 15:05 | CT ---
EXAMINATION TYPE: CT renal stones wo con DATE OF EXAM: 03/09/2017 HISTORY: Patient complains of left flank pain. Patient denies history of prior stones. CT DLP: 302.5 mGycm. Automated Exposure Control for Dose Reduction was Utilized. TECHNIQUE: CT scan of the abdomen and pelvis is performed without oral or IV contrast. COMPARISON: NONE FINDINGS: Lung bases are clear of consolidation. There is no pleural effusion. There are surgical cl ips apparently from bariatric surgery. There is hiatal hernia. Heart size is normal. Liver shows no focal defect. There are small calcified splenic granulomata. There is no sign of pancr eatic mass. Bile ducts are not dilated. Gallbladder appears normal. There are multiple bilateral renal calculi that measure up to 4 mm. There is left-sided hydronephrosi s and perinephric stranding. There is a 5 mm calcification in the pelvis on the left side that is pro bably a stone at the ureterovesical junction. Urinary bladder wall is thickened. I see no intestinal wall thickening. Appendix is not seen. There is no sign of appendicitis. I see no bony destructive process. There are moderate spondylotic changes in the lumbar spine from L2 to L5. IMPRESSION: Numerous bilateral renal calculi. Left-sided hydronephrosis and perinephric edema with apparent stone in the distal left ureter. Urinar y bladder wall thickening suggestive of nonspecific cystitis. Hiatal hernia.
[2017-03-09 15:59] VITALS: BP 169/73; PULSE 59; TEMP 97.6
== END 2017-03-09 15:59 | disposition home or self-care (01) ==
LOC: EC 12:09
DX: N13.2 Hydronephrosis with renal and ureteral calculous obstruction (principal); I10 Essential (primary) hypertension; R11.2 Nausea with vomiting, unspecified; Z87.891 Personal history of nicotine dependence; Z79.891 Long term (current) use of opiate analgesic; Z79.899 Other long term (current) drug therapy
CPT/HCPCS: 99284; 96374; 96375; 36415; 80053; 85025; 81001; 74150; J2270; J2405

== ENCOUNTER 2017-03-15 01:42 | Emergency (ER) | payer MEDICARE, OTHER ==
[2017-03-15 01:49] VITALS: BP 139/86; PULSE 86; RESP 20; TEMP 97.6
[2017-03-15] MEDS ORDERED: HYDROmorphone 2 MG/ML 1 ML SYRINGE IM STA (02:24)
[2017-03-15] MEDS ORDERED: IBUPROFEN 800 MG TAB PO STA (02:24)
--- NOTE | 2017-03-15 02:30 | ED ---
General Adult HPI - General Chief complaint: Back Pain/Injury Stated complaint: back pain/fall Time Seen by Provider: 03/15/17 02:23 Source: patient, RN notes reviewed, old records reviewed Mode of arrival: wheelchair Limitations: no limitations - History of Present Illness Initial comments: This is a 61-year-old male to the ER for evaluation pain. Severe back pain, chronic back pain. Patient admits pain is chronic in nature, states is not helping for pain. No new trauma. This is on also giving stabbing pain in his ankles and shins. States all pain is chronic in nature did awake him from sleep tonight, denies drugs or alcohol - Related Data Home Medications Medication Instructions Recorded Confirmed Albuterol Inhaler [Ventolin Hfa 2 puff INHALATION RT-Q6H PRN 09/17/16 03/09/17 Inhaler] Atenolol [Atenolol] 50 mg PO DAILY 09/17/16 03/09/17 Diazepam [Diazepam] 10 mg PO BID PRN 09/17/16 03/09/17 Hydrocodone/Acetaminophen 1 tab PO TID PRN 09/17/16 03/09/17 [Hydrocodon-Acetaminophn 10-325] oxyCODONE HCL 30 mg PO 5XD 09/17/16 03/09/17 Previous Rx's Medication Instructions Recorded Ondansetron Odt [Zofran Odt] 4 mg PO Q8HR PRN #10 tab 03/09/17 Tamsulosin [Flomax] 0.4 mg PO DAILY #7 cap 03/09/17 oxyCODONE HCL 30 mg PO Q6HR PRN #15 tab 03/09/17 Allergies Allergy/AdvReac Type Severity Reaction Status Date / Time No Known Allergies Allergy Verified 03/15/17 01:48 Review of Systems ROS Statement: Those systems with pertinent positive or pertinent negative responses have been documented in the HPI. ROS Other: All systems not noted in ROS Statement are negative. Past Medical History Past Medical History: Asthma, Hypertension Additional Past Medical History / Comment(s): back pain, hepatitis C History of Any Multi-Drug Resistant Organisms: None Reported Past Surgical History: Back Surgery, Joint Replacement, Orthopedic Surgery Past Psychological History: No Psychological Hx Reported Smoking Status: Former smoker Past Alcohol Use History: None Reported Past Drug Use History: None Reported General Exam Limitations: no limitations General appearance: alert, in no apparent distress Head exam: Present: atraumatic, normocephalic, normal inspection Eye exam: Present: normal appearance, PERRL, EOMI. Absent: scleral icterus, conjunctival injection, periorbital swelling ENT exam: Present: normal exam, mucous membranes moist Neck exam: Present: normal inspection. Absent: tenderness, meningismus, lymphadenopathy Respiratory exam: Present: normal lung sounds bilaterally. Absent: respiratory distress, wheezes, rales, rhonchi, stridor Cardiovascular Exam: Present: regular rate, normal rhythm, normal heart sounds. Absent: systolic murmur, diastolic murmur, rubs, gallop, clicks GI/Abdominal exam: Present: soft, normal bowel sounds. Absent: distended, tenderness, guarding, rebound, rigid Extremities exam: Present: normal inspection, full ROM, normal capillary refill. Absent: tenderness, pedal edema, joint swelling, calf tenderness Back exam: Present: normal inspection Neurological exam: Present: alert, oriented X3, CN II-XII intact Psychiatric exam: Present: normal affect, normal mood Skin exam: Present: warm, dry, intact, normal color. Absent: rash Course Vital Signs 03/15/17 03/15/17 01:46 02:58 Temperature 97.6 F 97.6 F Pulse Rate 86 86 Respiratory 20 20 Rate Blood Pressure 139/86 139/86 O2 Sat by Pulse 96 96 Oximetry Medical Decision Making - Medical Decision Making 58 female the ER with chronic pain chronic back pain, multiple evaluations,. This point is improved. Patient can be discharged home Disposition Clinical Impression: Chronic pain syndrome Disposition: HOME SELF-CARE Condition: Good Instructions: Acute Low Back Pain (ED) Referrals: Farrukh Rosenbaum MD [Primary Care Provider] - 1-2 days
== END 2017-03-15 02:58 | disposition home or self-care (01) ==
LOC: EC 01:42
DX: G89.4 Chronic pain syndrome (principal); M54.9 Dorsalgia, unspecified; M25.572 Pain in left ankle and joints of left foot; M25.571 Pain in right ankle and joints of right foot; I10 Essential (primary) hypertension; Z87.891 Personal history of nicotine dependence; Z79.891 Long term (current) use of opiate analgesic; Z79.899 Other long term (current) drug therapy
CPT/HCPCS: 99284; 96372; J1170

== ENCOUNTER → 2017-04-05 | Outpatient (CLI) | payer MEDICARE, OTHER ==
--- NOTE | 2017-04-05 23:10 | MR ---
EXAMINATION TYPE: MR lumbar spine wo/w con DATE OF EXAM: 04/05/2017 COMPARISON: 05/11/2016 HISTORY: Back and Leg Pain, Previous MRI Lumbar on PACS TECHNIQUE: Multiplanar, multisequence images of the lumbar spine were acquired utilizing 15 mL intravenous Multi Beatrice gadolinium contrast. The lumbar vertebra have normal alignment. There is severe narrowing of the disc spaces from L2 to L5 with spurring of the endplates. There is no compression fracture. There is posterior endplate spur f ormation and mild disc herniation at L3-4 and L4-5. There is a relatively large spinal canal and no s ignificant spinal stenosis is seen. There is no paraspinal mass. The contrast images show no patholog ic enhancement. There is bilateral L4-5 neural foraminal stenosis due to facet arthropathy and endpla te spur formation. IMPRESSION: Moderate multilevel spondylosis from L4 to L5. There is posterior disc herniation at L4-5 that is inc reased slightly compared to old exam but no significant spinal stenosis. There is moderately severe b ilateral L4-5 neural foraminal stenosis which appears unchanged. No fracture. stable multilevel hyp ertrophic facet arthropathy.
== END | disposition home or self-care (01) ==
LOC: RADMRIMAIN 16:22
PROVIDERS: ATTEND Family Medicine
DX: M99.73 Connective tissue and disc stenosis of intervertebral foramina of lumbar region (principal); M51.26 Other intervertebral disc displacement, lumbar region; M47.816 Spondylosis without myelopathy or radiculopathy, lumbar region; M46.86 Other specified inflammatory spondylopathies, lumbar region
CPT/HCPCS: 72158; A9577

== ENCOUNTER 2017-09-03 07:24 | Observation (INO) | payer MEDICARE, OTHER ==
[2017-09-03 08:09] LABS: Basophils % (A) 1 %; Eosinophils # (A) 0.2 k/uL (0-0.7); Eosinophils % (A) 3 %; HCT 39.1 % (39.0-53.0); HGB 12.4 gm/dL (13.0-17.5); Hypochromasia Slight; Lymphocytes # (A) 1.6 k/uL (1.0-4.8); Lymphocytes % (A) 24 %; MCH 27.8 pg (25.0-35.0); MCHC 31.6 g/dL (31.0-37.0); MCV 87.8 fL (80.0-100.0); Mean Platelet Volume 8.1; Monocytes # (A) 0.5 k/uL (0-1.0); Monocytes % (A) 7 %; Neutrophils # (A) 4.2 k/uL (1.3-7.7); Neutrophils % (A) 63 %; Platelet Count 213 k/uL (150-450); RBC 4.45 m/uL (4.30-5.90); RDW 15.3 % (11.5-15.5); WBC 6.6 k/uL (3.8-10.6)
[2017-09-03 08:17] LABS: INR 1.1 (<1.2); Partial Thromboplastin Time 24.4 sec (22.0-30.0); Prothrombin Time 10.9 sec (9.0-12.0)
[2017-09-03 08:19] LABS: ALT 301 U/L (21-72); AST 152 U/L (17-59); Albumin 4.3 g/dL (3.5-5.0); Alkaline Phosphatase 89 U/L (38-126); Anion Gap 11 mmol/L; Blood Urea Nitrogen 24 mg/dL (9-20); Calcium 9.3 mg/dL (8.4-10.2); Carbon Dioxide 26 mmol/L (22-30); Chloride 104 mmol/L (98-107); Glucose 69 mg/dL (74-99); Magnesium 2.2 mg/dL (1.6-2.3); Potassium 4.6 mmol/L (3.5-5.1); Sodium 141 mmol/L (137-145); Total Bilirubin 0.4 mg/dL (0.2-1.3); Total Protein 7.4 g/dL (6.3-8.2)
--- NOTE | 2017-09-03 08:24 | CT ---
EXAMINATION TYPE: CT brain narinder su DATE OF EXAM: 09/03/2017 COMPARISON: 08/21/2017 HISTORY: Syncope, fell backwards hitting head CT DLP: 1341.6 mGycm, Automated exposure control for dose reduction was used. CONTRAST: Patient injected with 0 mL of Omnipaque 300. CT of the brain is performed utilizing 3 mm thick sections through the posterior fossa and 3 mm thick sections through the remaining calvarium. Study is performed within 24 hours of arrival to the hospital. No abnormal hyperdensity is present to suggest an acute intracranial hemorrhage. No mass lesion is evident. No acute infarcts are evident. Ventricles and sulci are appropriate for the patient age. Some minimal fluid may be within the right maxillary sinus. Remaining paranasal sinuses are clear. Ma stoid air cells are clear. No acute fractures are evident. IMPRESSIONS: 1. No acute intracranial process. 2. Resolving right maxillary sinusitis CT cervical spine. COMPARISON: None CT of the cervical spine is performed in the axial plane at 2 mm thick sections. Reconstructed image s in the coronal, and sagittal plane are reviewed on the computer. No acute fractures are evident. There is kyphosis centered at C5. Posterior longitudinal ligament calcification is present. Spinal ca nal narrowing without stenosis by measurement criteria is present. Note is made of facet degenerative changes. Uncovertebral joint hypertrophy is present causing moderate narrowing on the left at C4-5 b ilateral foraminal narrowing C5-6 and moderate narrowing at C6-7. Endplate spurring and posterior olvin gitudinal ligament calcification in the right paracentral region at C5-6 has moderate anterior thecal sac compression. Some cord contact is present with deformity. There is likely exiting nerve root imp ingement. There is loss of disc height C4-5 C5-6 C6-7. No acute compression deformities are identified. IMPRESSIONS: 1. Degenerative disc changes, kyphosis and uncovertebral joint hypertrophy through the mid and lower cervical spine. 2. Right paracentral endplate spurring and longitudinal ligament calcification contributing to modera te right paraspinal stenosis with spinal cord deformity and suspected nerve root impingement C5-6. 3. No acute abnormality.
[2017-09-03 08:37] LABS: Creatine Kinase 174 U/L (55-170)
--- NOTE | 2017-09-03 08:44 | ED ---
General Adult HPI - General Chief complaint: Syncope Stated complaint: Syncope Time Seen by Provider: 09/03/17 07:34 Source: patient, RN notes reviewed Mode of arrival: ambulatory Limitations: no limitations - History of Present Illness Initial comments: 61-year-old male presenting for evaluation of loss consciousness and fall. This occurred last night. Patient has recent diagnosis of narcolepsy. He had an episode approximately one week ago where he fell asleep while standing at a service counter. Patient has no history of narcolepsy prior to this. States that last night he had an episode where he felt unsteady, dizzy, lower himself down and lost consciousness. He is uncertain if he fell asleep. He believes this is a similar episode to what occurred 1 week ago. Denied preceding chest pain or palpitations. Patient has past medical history of hypertension. Denies abdominal pain. Denies any vertigo symptoms at the time of my evaluation. Denies nausea vomiting. Patient's chief complaint is neck pain and stiffness. No headache. - Related Data Home Medications Medication Instructions Recorded Confirmed Atenolol [Atenolol] 50 mg PO DAILY 09/17/16 09/03/17 Diazepam [Diazepam] 10 mg PO BID PRN 09/17/16 09/03/17 oxyCODONE HCL 30 mg PO 5XD 09/17/16 09/03/17 Allergies Allergy/AdvReac Type Severity Reaction Status Date / Time No Known Allergies Allergy Verified 09/03/17 08:13 Review of Systems ROS Statement: Those systems with pertinent positive or pertinent negative responses have been documented in the HPI. ROS Other: All systems not noted in ROS Statement are negative. Past Medical History Past Medical History: Asthma, Hypertension Additional Past Medical History / Comment(s): back pain, hepatitis C History of Any Multi-Drug Resistant Organisms: None Reported Past Surgical History: Back Surgery, Bariatric Surgery, Orthopedic Surgery Additional Past Surgical History / Comment(s): gastric bypass shoulder Past Psychological History: Anxiety Smoking Status: Former smoker Past Alcohol Use History: None Reported Past Drug Use History: None Reported General Exam Limitations: no limitations General appearance: alert, in no apparent distress Head exam: Present: atraumatic, normocephalic Eye exam: Present: normal appearance, PERRL ENT exam: Present: normal exam Neck exam: Present: tenderness (Bilateral paraspinal tenderness, no midline tenderness) Respiratory exam: Present: normal lung sounds bilaterally. Absent: respiratory distress Cardiovascular Exam: Present: regular rate, normal rhythm GI/Abdominal exam: Present: soft. Absent: distended, tenderness Extremities exam: Present: normal inspection, full ROM, normal capillary refill. Absent: pedal edema Back exam: Present: normal inspection, full ROM Neurological exam: Present: alert, oriented X3, CN II-XII intact. Absent: motor sensory deficit Psychiatric exam: Present: normal affect, normal mood Skin exam: Present: warm, dry, intact. Absent: cyanosis, diaphoretic Course Vital Signs 09/03/17 09/03/17 07:27 09:14 Temperature 97.1 F L Pulse Rate 66 55 L Respiratory 18 18 Rate Blood Pressure 150/72 128/79 O2 Sat by Pulse 97 99 Oximetry - Reevaluation(s) Reevaluation #1: 09/03/17 11:02 Patient remains asymptomatic while in the emergency department, no evidence of arrhythmia or ectopy on telemetry. EKG Findings - EKG Comments: EKG Findings:: EKG shows normal sinus rhythm, ventricular rate 60, LA interval 170, QRS duration 104, QTC 414, no signs of arrhythmia or ischemia Medical Decision Making - Medical Decision Making 61-year-old male presenting for evaluation of neck pain and syncopal episode. Patient is currently being evaluated for narcolepsy. Head CT is obtained, this is negative for acute intracranial abnormality. CT cervical spine shows no fracture subluxation, there is C5-C6 impingement. EKG nonischemic. Chest x- ray reviewed by myself, shows no acute intrathoracic abnormality, official radiology read is pending. Studies including CBC, CMP and troponin is unremarkable. Given the multiple episodes over the past week. Patient will be placed in observation for echo, carotid study, and neurology evaluation. This is discussed with the patient's primary care physician Dr. Rosenbaum, he will accept the admission. Diagnosis: Syncopal episode - Lab Data Result diagrams: 09/03/17 07:45 09/03/17 07:45 Lab Results 09/03/17 09/03/17 09/03/17 Range/Units 07:45 07:45 07:45 WBC 6.6 (3.8-10.6) k/uL RBC 4.45 (4.30-5.90) m/uL Hgb 12.4 L (13.0-17.5) gm/dL Hct 39.1 (39.0-53.0) % MCV 87.8 (80.0-100.0) fL MCH 27.8 (25.0-35.0) pg MCHC 31.6 (31.0-37.0) g/dL RDW 15.3 (11.5-15.5) % Plt Count 213 (150-450) k/uL Neutrophils % 63 % Lymphocytes % 24 % Monocytes % 7 % Eosinophils % 3 % Basophils % 1 % Neutrophils # 4.2 (1.3-7.7) k/uL Lymphocytes # 1.6 (1.0-4.8) k/uL Monocytes # 0.5 (0-1.0) k/uL Eosinophils # 0.2 (0-0.7) k/uL Basophils # 0.0 (0-0.2) k/uL Hypochromasia Slight PT (9.0-12.0) sec INR (<1.2) APTT (22.0-30.0) sec Sodium 141 (137-145) mmol/L Potassium 4.6 (3.5-5.1) mmol/L Chloride 104 (98-107) mmol/L Carbon Dioxide 26 (22-30) mmol/L Anion Gap 11 mmol/L BUN 24 H (9-20) mg/dL Creatinine 1.13 (0.66-1.25) mg/dL Est GFR (MDRD) Af Amer >60 (>60 ml/min/1.73 sqM) Est GFR (MDRD) Non-Af >60 (>60 ml/min/1.73 sqM) Glucose 69 L (74-99) mg/dL Calcium 9.3 (8.4-10.2) mg/dL Magnesium 2.2 (1.6-2.3) mg/dL Total Bilirubin 0.4 (0.2-1.3) mg/dL AST 152 H (17-59) U/L ALT 301 H (21-72) U/L Alkaline Phosphatase 89 (38-126) U/L Total Creatine Kinase 174 H (55-170) U/L CK-MB (CK-2) 3.2 H* (0.0-2.4) ng/mL CK-MB (CK-2) Rel Index 1.8 Troponin I <0.012 (0.000-0.034) ng/mL Total Protein 7.4 (6.3-8.2) g/dL Albumin 4.3 (3.5-5.0) g/dL Urine Color Urine Appearance (Clear) Urine pH (5.0-8.0) Ur Specific [place] (1.001-1.035) Urine Protein (Negative) Urine Glucose (UA) (Negative) Urine Ketones (Negative) Urine Blood (Negative) Urine Nitrite (Negative) Urine Bilirubin (Negative) Urine Urobilinogen (<2.0) mg/dL Ur Leukocyte Esterase (Negative) 09/03/17 09/03/17 Range/Units 07:45 09:00 WBC (3.8-10.6) k/uL RBC (4.30-5.90) m/uL Hgb (13.0-17.5) gm/dL Hct (39.0-53.0) % MCV (80.0-100.0) fL MCH (25.0-35.0) pg MCHC (31.0-37.0) g/dL RDW (11.5-15.5) % Plt Count (150-450) k/uL Neutrophils % % Lymphocytes % % Monocytes % % Eosinophils % % Basophils % % Neutrophils # (1.3-7.7) k/uL Lymphocytes # (1.0-4.8) k/uL Monocytes # (0-1.0) k/uL Eosinophils # (0-0.7) k/uL Basophils # (0-0.2) k/uL Hypochromasia PT 10.9 (9.0-12.0) sec INR 1.1 (<1.2) APTT 24.4 (22.0-30.0) sec Sodium (137-145) mmol/L Potassium (3.5-5.1) mmol/L Chloride (98-107) mmol/L Carbon Dioxide (22-30) mmol/L Anion Gap mmol/L BUN (9-20) mg/dL Creatinine (0.66-1.25) mg/dL Est GFR (MDRD) Af Amer (>60 ml/min/1.73 sqM) Est GFR (MDRD) Non-Af (>60 ml/min/1.73 sqM) Glucose (74-99) mg/dL Calcium (8.4-10.2) mg/dL Magnesium (1.6-2.3) mg/dL Total Bilirubin (0.2-1.3) mg/dL AST (17-59) U/L ALT (21-72) U/L Alkaline Phosphatase (38-126) U/L Total Creatine Kinase (55-170) U/L CK-MB (CK-2) (0.0-2.4) ng/mL CK-MB (CK-2) Rel Index Troponin I (0.000-0.034) ng/mL Total Protein (6.3-8.2) g/dL Albumin (3.5-5.0) g/dL Urine Color Yellow Urine Appearance Clear (Clear) Urine pH 5.0 (5.0-8.0) Ur Specific [place] 1.012 (1.001-1.035) Urine Protein Negative (Negative) Urine Glucose (UA) Negative (Negative) Urine Ketones Negative (Negative) Urine Blood Negative (Negative) Urine Nitrite Negative (Negative) Urine Bilirubin Negative (Negative) Urine Urobilinogen <2.0 (<2.0) mg/dL Ur Leukocyte Esterase Negative (Negative) Disposition Clinical Impression: Syncope Disposition: ADMITTED IP TO THIS [facility] Condition: Stable Referrals: Farrukh Rosenbaum MD [Primary Care Provider] - 1-2 days Decision to Admit Reason: Admit from EC Decision Date: 09/03/17 Decision Time: 11:05
[2017-09-03 08:49] LABS: Troponin I <0.012 ng/mL (0.000-0.034)
[2017-09-03 08:55] LABS: Creatine Kinase MB 3.2 ng/mL (0.0-2.4)
[2017-09-03 09:18] LABS: Appearance,Urine Clear (Clear); Bilirubin,Urine Negative (Negative); Blood,Urine Negative (Negative); Color,Urine Yellow; Glucose,Urine (UA) Negative (Negative); Ketones,Urine Negative (Negative); Leukocyte Esterase,Urine Negative (Negative); Nitrite,Urine Negative (Negative); Protein,Urine Negative (Negative); Specific Gravity,Urine 1.012 (1.001-1.035); Urobilinogen,Urine <2.0 mg/dL (<2.0)
[2017-09-03] MEDS ORDERED: ONDANSETRON 4 MG/2 ML VIAL IVP PRN (11:05)
[2017-09-03] MEDS ORDERED: NALOXONE 0.4 MG/ML 1 ML VIAL IV PRN (11:05)
[2017-09-03] MEDS: SODIUM CHLORIDE 0.9% 1,000 ML IV SCH (11:22)
[2017-09-03 11:38] LABS: Glucose,Whole Blood 75 mg/dL (75-99)
[2017-09-03 12:17] LABS: Glucose,Whole Blood 134 mg/dL (75-99)
--- NOTE | 2017-09-03 12:35 | P.HPIM ---
History of Present Illness 61-year-old male was admitted for observation through the emergency room. Patient presented with complaints of having syncopal episode with neck pain. Patient has had a few episodes of your syncope with falling asleep. Patient is concerned that he has narcolepsy. Patient is a history of asthma hypertension and hepatitis C that has not treated Review of Systems Constitutional: Reports fatigue Musculoskeletal: Reports low back pain, Reports neck pain Past Medical History Past Medical History: Asthma, GERD/Reflux, Hypertension, Liver Disease Additional Past Medical History / Comment(s): Pt states currently being worked up for possible narcolepsy, hepatitis C, back pain/bulging discs/numbness down R leg at tiems, gastric ulcer. History of Any Multi-Drug Resistant Organisms: None Reported Past Surgical History: Back Surgery, Bariatric Surgery, Heart Catheterization, Orthopedic Surgery Additional Past Surgical History / Comment(s): gastric bypass, R rotator cuff repair, R knee arthroscopy, R carpal tunnel release, cardiac cath-normal. Past Anesthesia/Blood Transfusion Reactions: No Reported Reaction Smoking Status: Former smoker - Past Family History Father Family Medical History: Hypertension Additional Family Medical History / Comment(s): ETOH abuse Mother Family Medical History: Dementia Medications and Allergies Home Medications Medication Instructions Recorded Confirmed Type Atenolol [Atenolol] 50 mg PO DAILY 09/17/16 09/03/17 History Diazepam [Diazepam] 10 mg PO BID PRN 09/17/16 09/03/17 History oxyCODONE HCL 30 mg PO 5XD 09/17/16 09/03/17 History Allergies Allergy/AdvReac Type Severity Reaction Status Date / Time No Known Allergies Allergy Verified 09/03/17 08:13 Physical Exam Vitals: Vital Signs Temp Pulse Pulse Resp BP BP Pulse Ox 09/03/17 12:20 96.0 F L 59 L 18 151/83 94 L 09/03/17 11:41 97.6 F 56 L 18 141/80 97 09/03/17 09:14 55 L 18 128/79 99 09/03/17 07:27 97.1 F L 66 18 150/72 97 Intake and Output 09/02/17 09/03/17 09/03/17 22:59 06:59 14:59 Other: Weight 77.111 kg Patient Weight 09/04/17 06:59 Weight 77.111 kg - Constitutional General appearance: mild distress - EENT Eyes: PERRLA Ears: bilateral: normal - Neck Neck: normal ROM - Respiratory Respiratory: bilateral: CTA - Cardiovascular Rhythm: regular - Gastrointestinal General gastrointestinal: soft - Integumentary Integumentary: normal - Neurologic Neurologic: CNII-XII intact - Psychiatric Psychiatric: A&O x's 3, appropriate affect, intact judgment & insight Results CBC & Chem 7: 09/03/17 07:45 09/03/17 07:45 Labs: Abnormal Lab Results - Last 24 Hours (Table) 09/03/17 09/03/17 09/03/17 Range/Units 07:45 07:45 07:45 Hgb 12.4 L (13.0-17.5) gm/dL BUN 24 H (9-20) mg/dL Glucose 69 L (74-99) mg/dL POC Glucose (mg/dL) (75-99) mg/dL AST 152 H (17-59) U/L ALT 301 H (21-72) U/L Total Creatine Kinase 174 H (55-170) U/L CK-MB (CK-2) 3.2 H* (0.0-2.4) ng/mL 09/03/17 Range/Units 12:16 Hgb (13.0-17.5) gm/dL BUN (9-20) mg/dL Glucose (74-99) mg/dL POC Glucose (mg/dL) 134 H (75-99) mg/dL AST (17-59) U/L ALT (21-72) U/L Total Creatine Kinase (55-170) U/L CK-MB (CK-2) (0.0-2.4) ng/mL CT Scan - head: report reviewed Thrombosis Risk Factor Assmnt - Choose All That Apply Any of the Below Risk Factors Present?: Yes Each Factor Represents 1 point: Obesity (BMI >25) Other Risk Factors: Yes Each Risk Factor Represents 2 Points: Age 61-74 years Other congenital or acquired thrombophilia - If yes, enter type in comment: No Thrombosis Risk Factor Assessment Total Risk Factor Score: 3 Thrombosis Risk Factor Assessment Level: Moderate Risk Assessment and Plan Plan: assessment syncope possible narcolepsy hx asthma hx gastric bypass hepatitis C hypertension chronic back opiod dependent plan observation admission consult neurology for syncope possible narcolepsy
--- NOTE | 2017-09-03 12:44 | XR ---
EXAMINATION TYPE: XR chest 2V DATE OF EXAM: 09/03/2017 COMPARISON: 08/22/2015 HISTORY: Shortness of breath TECHNIQUE: Frontal and lateral views of the chest are obtained. FINDINGS: Scattered senescent parenchymal changes noted. Hyperinflation compatible with COPD. Right basilar michael ear atelectasis. No evidence for infiltrate. No evidence for atelectasis. Heart size is stable. Mediastinal structures are stable and grossly unremarkable. No evidence for hilar prominence. Degenerative changes dorsal spine. IMPRESSION: 1. No evidence for acute pulmonary disease.
[2017-09-03] MEDS: HYDROcodone/APAP 5-325MG 1 EACH TAB PO PRN (16:01)
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
[2017-09-04] MEDS: HYDROcodone/APAP 5-325MG 1 EACH TAB PO PRN (06:02)
[2017-09-04 07:10] LABS: Glucose,Whole Blood 76 mg/dL (75-99)
--- NOTE | 2017-09-04 07:53 | ECHOF ---
Referral Reason:syncope MEASUREMENTS -------- HEIGHT: 165.1 cm WEIGHT: 77.1 kg BP: IVSd: 1.1 cm (0.6 - 1.1) LVIDd: 5.4 cm (3.9 - 5.3) LVPWd: 1.1 cm (0.6 - 1.1) IVSs: 1.3 cm LVIDs: 4.6 cm LVPWs: 1.5 cm Ao Diam: 4.0 cm (2.0 - 3.7) AV Cusp: 2.0 cm (1.5 - 2.6) RAP: 5.00 mmHg RVSP: 12.90 mmHg FINDINGS -------- Sinus rhythm. This was a technically difficult study with suboptimal views. Unable to visualize any parasternal o r apical views. Test performed from subcostal window only. The left ventricular size is normal. There is mild concentric left ventricular hypertrophy. Overa ll left ventricular systolic function is normal with, an EF between 55 - 60 %. The right ventricle is normal in size and function. The left atrial size is normal. RA appears enlarged. Aortic valve is trileaflet and is mildly thickened. There is no evidence of aortic regurgitation. There is no evidence of aortic stenosis. The mitral valve leaflets are mildly thickened. There is trace mitral regurgitation. Trace tricuspid regurgitation present. Right ventricular systolic pressure is normal at < 35 mmHg. There is no evidence of pulmonary hypertension. The pulmonic valve is normal. The aortic root size is normal. Normal inferior vena cava with normal inspiratory collapse consistent with estimated right atrial pre ssure of 5 mmHg. The pericardium is normal. There is no pericardial effusion. CONCLUSIONS -------- 1. Sinus rhythm. 2. This was a technically difficult study with suboptimal views. 3. Unable to visualize any parasternal or apical views. Test performed from subcostal window only. 4. The left ventricular size is normal. 5. There is mild concentric left ventricular hypertrophy. 6. Overall left ventricular systolic function is normal with, an EF between 55 - 60 %. 7. RA appears enlarged. 8. Aortic valve is trileaflet and is mildly thickened. 9. The mitral valve leaflets are mildly thickened. 10. There is trace mitral regurgitation. 11. Trace tricuspid regurgitation present. 12. Right ventricular systolic pressure is normal at < 35 mmHg. 13. There is no evidence of pulmonary hypertension. 14. The aortic root size is normal. 15. There is no pericardial effusion. FAT PURIFICATION WORKER: Jose Cui RDCS
[2017-09-04] MEDS ORDERED: ATENOLOL 50 MG TAB PO SCH (09:00)
[2017-09-04 11:09] VITALS: RESP 16
--- NOTE | 2017-09-04 11:55 | P.PN ---
Subjective Patient resting in bed complains of left eye drainage and irritation. Continues with right sciatica leg pain Objective - Vital Signs Vital signs: Vital Signs Temp 97.0 F L 09/04/17 07:00 Pulse 63 09/04/17 07:00 Resp 16 09/04/17 07:00 BP 108/56 09/04/17 07:00 Pulse Ox 94 L 09/04/17 07:00 Intake & Output 09/03/17 09/04/17 09/04/17 18:59 06:59 18:59 Intake Total 100 Balance 100 Weight 77.111 kg Intake: Oral 100 Other: # Voids 1 1 # Bowel Movements 2 - Constitutional General appearance: Present: mild distress - EENT EENT Comment(s): Right eye conjunctiva reddened Eyes: Present: PERRLA Ears: bilateral: normal - Neck Neck: Present: normal ROM - Respiratory Respiratory: bilateral: CTA - Cardiovascular Rhythm: regular - Gastrointestinal General gastrointestinal: Present: soft - Integumentary Integumentary: Present: normal - Neurologic Neurologic: Present: CNII-XII intact - Psychiatric Psychiatric: Present: A&O x's 3, appropriate affect, intact judgment & insight - Labs CBC & Chem 7: 09/03/17 07:45 09/03/17 07:45 Labs: Abnormal Lab Results - Last 24 Hours (Table) 09/03/17 Range/Units 12:16 POC Glucose (mg/dL) 134 H (75-99) mg/dL - Imaging and Cardiology Chest x-ray: report reviewed CT Scan - head: report reviewed Assessment and Plan Assessment: Assessment Syncope Narcolepsy Left eye conjunctivitis 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
[2017-09-04] MEDS: SODIUM CHLORIDE 0.9% 1,000 ML IV SCH (12:24)
[2017-09-04] MEDS: TOBRAMYCIN 0.3% OPHTH DROPS 5 ML BTL LEFT EYE SCH ×2 (12:24→17:37)
[2017-09-04 12:30] LABS: Glucose,Whole Blood 88 mg/dL (75-99)
--- NOTE | 2017-09-04 15:56 | EEG ---
ELECTROENCEPHALOGRAM REPORT DATE OF SERVICE: 09/04/2017 REASON FOR TESTING: Syncope. DESCRIPTION OF THE PROCEDURE: This EEG was performed using a 21-channel digital electroencephalograph, following international 10-20 system. DESCRIPTION OF THE RECORDING: From the beginning of the tracing, and with patient's eyes closed, the background rhythm was mostly consisting of 9-10 Hz alpha frequency in the posterior occipital leads. No obvious asymmetry is seen. Occasional muscle artifacts and movement artifacts are seen. Photic stimulation was performed with a good driving response seen. No pathological waves were elicited. Hyperventilation was not performed. The patient remains awake throughout the tracing. No epileptiform discharges were seen. His EKG lead showed a regular rate and rhythm. INTERPRETATION: This awake EEG can be considered within normal limits. There is no asymmetry seen. No epileptiform discharges were noticed. The absence of epileptiform discharges does not rule out the diagnosis of epilepsy; therefore clinical correlation is recommended. MMROBERTL / YUSUFN: [id number] /
--- NOTE | 2017-09-04 16:40 | P.DS ---
Providers Date of admission: 09/03/17 11:05 Expected date of discharge: 09/04/17 Attending physician: Farrukh Rosenbaum Consults: 09/03/17 12:10 Consult Physician Urgent Consulting Provider: Emeli Waite Consult Reason/Comments: syncope, possible narcolepsy Do you want consulting provider notified?: Yes Primary care physician: Farrukh Rosenbaum Hospital Course: 61-year-old male was admitted to the emergency room with complaints of syncopal episode. States also that he is been falling asleep during the day. Patient was evaluated by a neurologist was diagnosed with narcolepsy. Patient was found to have conjunctivitis of the left. Patient is to follow up with a neurologist and family physician next week Assessment syncope narcolepsy history of asthma stable hypertension hepatitis C history of gastric bypass chronic low back pain with right sciatica Plan follow up with a neurologist and family physician Patient Condition at Discharge: Stable Plan - Discharge Summary Discharge Rx Participant: No New Discharge Prescriptions: New Tobramycin 0.3% Ophth Soln [Tobrex 0.3% Ophth Soln] 2 drops LEFT EYE Q4HR #1 bottle Continue Diazepam 10 mg PO BID PRN PRN Reason: Anxiety Atenolol 50 mg PO DAILY oxyCODONE HCL 30 mg PO 5XD Discharge Medication List Atenolol 50 mg PO DAILY 09/17/16 [History] Diazepam 10 mg PO BID PRN 09/17/16 [History] oxyCODONE HCL 30 mg PO 5XD 09/17/16 [History] Tobramycin 0.3% Ophth Soln [Tobrex 0.3% Ophth Soln] 2 drops LEFT EYE Q4HR #1 bottle 09/04/17 [Rx] Follow up Appointment(s)/Referral(s): Farrukh Rosenbaum MD [Primary Care Provider] - 1-2 days Albaro Peña MD [STAFF PHYSICIAN] - 1 Week ([facility], for symptoms of Narcolepsy.)
[2017-09-04 17:19] LABS: Glucose,Whole Blood 62 mg/dL (75-99)
[2017-09-04 17:19] LABS: Glucose,Whole Blood 107 mg/dL (75-99)
[2017-09-04 17:36] VITALS: BP 130/72; PULSE 70; TEMP 97.8
--- NOTE | 2017-09-04 17:50 | P.PN ---
Subjective Progress Note Date: 09/04/17 Principal diagnosis: narcolepsy Neurology is following on a 61-year old male that presented to the ED with complaints of sudden onset of sleeping. Occurrences have happened 5x in the past 7 days. He denies history of insomnia, lightheadedness, palpitations or other acute neurological symptoms. Patient presented at request of family as a safety concern. CT of brain was unremarkable. CT of cervical spine noted previously known cervical changes that were already being treated by our office but no new etiology to account for patient symptoms. Lab work was positive for decreased HGB, elevated BUN, and significant hepatic insufficiency on AST and ALT. Patient denies any ETOH use. Interval update: Patient was resting in bed comfortably, AOx4, no acute distress on contact today. He states that his condition is relatively unchanged but he has not had any new occurrences to his knowledge in the last 24 hours. Objective - Vital Signs Vital signs: Vital Signs Temp 97.8 F 09/04/17 15:00 Pulse 70 09/04/17 15:00 Resp 16 09/04/17 16:00 BP 130/72 09/04/17 15:00 Pulse Ox 94 L 09/04/17 15:00 Intake & Output 09/03/17 09/04/17 09/04/17 18:59 06:59 18:59 Intake Total 100 Balance 100 Weight 77.111 kg Intake: Oral 100 Other: # Voids 1 1 2 # Bowel Movements 2 - Exam Constitutional: AOx4, cooperative HEENT: NC/AT, no facial asymmetry is seen. Throat: Supple, no masses Respiratory: No increased work of breathing Cardiac: Regular rate and Rhythm GI: non tender, non distended Musculoskeletal: Physical Education Aide strengths are equal bilaterally 5/5, Lower extremity strengths are equal bilaterally at 5/5. Neurological: CN II-XII in tact, patient was AOx3, speech and language are normal, no unilateralizing weakness, no seizure activity note on physical exam. Sensation was normal. Integementary: no rash, no erythema Psychiatric: mood and affect appropriate - Labs CBC & Chem 7: 09/03/17 07:45 09/03/17 07:45 Labs: Abnormal Lab Results - Last 24 Hours (Table) 09/04/17 09/04/17 Range/Units 16:57 17:14 POC Glucose (mg/dL) 62 L 107 H (75-99) mg/dL Assessment and Plan (1) Narcolepsy Current Visit: Yes Status: Acute Code(s): G47.419 - NARCOLEPSY WITHOUT CATAPLEXY SNOMED Code(s): 77607114 Plan: Narcolepsy Patient does appear to have symptoms consistent with narcolepsy. Patient's can be followed up in the out patient setting for a sleep study with multiple sleep latency testing. Continue workup by hospitalist with regard to liver enzymes, bradycardia. From a neurological standpoint, the patient can be cleared for discharge. Please advise the patient to follow up with our office within 10 business days. If you have any further questions, contact our office.
== END 2017-09-04 17:42 | disposition home or self-care (01) ==
LOC: EC 07:24 → 4MS4W 11:05
PROVIDERS: ADMIT Family Medicine; ATTEND Family Medicine
DX: R55 Syncope and collapse (principal); G47.419 Narcolepsy without cataplexy; M54.2 Cervicalgia; I10 Essential (primary) hypertension; J45.909 Unspecified asthma, uncomplicated; B19.20 Unspecified viral hepatitis C without hepatic coma; F41.9 Anxiety disorder, unspecified; K21.9 Gastro-esophageal reflux disease without esophagitis; H10.9 Unspecified conjunctivitis; K76.9 Liver disease, unspecified; E66.9 Obesity, unspecified; F11.20 Opioid dependence, uncomplicated; G89.29 Other chronic pain; M54.41 Lumbago with sciatica, right side; M46.92 Unspecified inflammatory spondylopathy, cervical region; Z68.28 Body mass index [BMI] 28.0-28.9, adult; Z79.899 Other long term (current) drug therapy; Z82.49 Family history of ischemic heart disease and other diseases of the circulatory system; Z87.891 Personal history of nicotine dependence; Z98.84 Bariatric surgery status; Z87.11 Personal history of peptic ulcer disease
CPT/HCPCS: 96361 ×2; 96360; 99285; 36415; 95819; 93005; 93306; 80053; 82550; 82553; 83735; 84484; 85025; 85610; 85730; 81003; 71020; 72125; 70450; G0378 ×2

== ENCOUNTER 2017-09-05 10:02 | Emergency (ER) | payer MEDICARE, OTHER ==
[2017-09-05 10:32] VITALS: TEMP 97.9
--- NOTE | 2017-09-05 10:53 | ED ---
General Adult HPI - General Chief complaint: Fall Stated complaint: Fall Time Seen by Provider: 09/05/17 10:35 Source: patient, RN notes reviewed, old records reviewed Mode of arrival: ambulatory Limitations: no limitations - History of Present Illness Initial comments: Chief complaint and history of present illness this is a 61-year-old male here with a complaint of while walking his dog he felt dizzy and fell down. No loss of consciousness. Patient does present with a 1 mL laceration to the right eyebrow area. No reported seizure activity. Patient reports she remained alert the entire time. Patient was recently in hospital with diagnosis made of narcolepsy. Patient is alert and oriented. - Related Data Home Medications Medication Instructions Recorded Confirmed Atenolol 50 mg PO DAILY 09/17/16 09/05/17 Diazepam 10 mg PO BID PRN 09/17/16 09/05/17 oxyCODONE HCL 30 mg PO 5XD 09/17/16 09/05/17 Previous Rx's Medication Instructions Recorded Tobramycin 0.3% Ophth Soln [Tobrex 2 drops LEFT EYE Q4HR #1 bottle 09/04/17 0.3% Ophth Soln] Allergies Allergy/AdvReac Type Severity Reaction Status Date / Time No Known Allergies Allergy Verified 09/05/17 11:00 Review of Systems ROS Statement: Those systems with pertinent positive or pertinent negative responses have been documented in the HPI. review of systems. Patient denies any headache no visual acuity changes. Denies neck pain denies chest pain. States he has chronic low back discomfort. No GI/ problems currently no neuro deficits. All systems were reviewed.Past medical problems significant for recent diagnosis of narcolepsy. Patient denies high blood pressure diabetes cancer stroke or asthma. Asians surgeries include bariatric surgery, heart catheterization without stents, rotator cuff repair and back surgery. The patient quit smoking years ago denies alcohol use. No known ALLERGIES. Family history sister had bone cancer. ROS Other: All systems not noted in ROS Statement are negative. Past Medical History Past Medical History: Asthma, GERD/Reflux, Hypertension, Liver Disease Additional Past Medical History / Comment(s): Pt states currently being worked up for possible narcolepsy, hepatitis C, back pain/bulging discs/numbness down R leg at tiems, gastric ulcer. History of Any Multi-Drug Resistant Organisms: None Reported Past Surgical History: Back Surgery, Bariatric Surgery, Heart Catheterization, Orthopedic Surgery Additional Past Surgical History / Comment(s): gastric bypass, R rotator cuff repair, R knee arthroscopy, R carpal tunnel release, cardiac cath-normal. Past Anesthesia/Blood Transfusion Reactions: No Reported Reaction Past Psychological History: Anxiety Smoking Status: Former smoker Past Alcohol Use History: None Reported Past Drug Use History: None Reported - Past Family History Father Family Medical History: Hypertension Additional Family Medical History / Comment(s): ETOH abuse Mother Family Medical History: Dementia General Exam - General Exam Comments Initial Comments: General: The patient is awake and alert, in no distress, and does not appear acutely ill. chief complaint is patient became dizzy while walking his dog and fell. Vital signs temperature 97.9 pulse 73 respiratory rate 16 pulse ox 94% room air blood pressure 141/78 Eye: Pupils are equal, round and reactive to light, extra-ocular movements are intact ; patient states he's been treated for left sided pinkeye.patient has a 1 mL laceration to the right eyebrow area. Ears, nose, mouth and throat: There are moist mucous membranes and no oral lesions. Neck: The neck is supple, there is no tenderness , no neck pain with full flexion and extension. Cardiovascular: There is a regular rate and rhythm. No murmur, rub or gallop is appreciated. Respiratory: Lungs are clear to auscultation, respirations are non-labored, breath sounds are equal. No wheezes, stridor, rales, or rhonchi. Gastrointestinal: Soft, non-distended, non-tender abdomen without masses or organomegaly noted. There is no rebound or guarding present. No CVA tenderness. Bowel sounds are unremarkable. Back: full range of motion but with a complaint of chronic back pain and nothing new. Musculoskeletal: Normal ROM, no tenderness, There is no pedal edema. There is no calf tenderness or swelling. Sensation intact. Pulses equal bilaterally 2+. Neurological: CN II-XII intact, There are no obvious motor or sensory deficits. Coordination appears grossly intact. Speech is normal.no focal or lateralizing findings Skin: Skin is warm and dry and no rashes or lesions are noted. Psychiatric: Cooperative, appropriate mood & affect, normal judgment. Limitations: no limitations Course Vital Signs 09/05/17 10:28 Temperature 97.9 F Pulse Rate 73 Respiratory 16 Rate Blood Pressure 141/78 O2 Sat by Pulse 94 L Oximetry Medical Decision Making - Medical Decision Making Medical decision making; the patient had a CAT scan of the brain. It was done and reviewed by radiologist's final report includes impression; no acute intracranial hemorrhage, or midline shift. There is slight right periorbital hematoma. Possible acute on chronic right maxillary sinus disease. Correlate clinically. As read by Dr. warner X-ray of the chest was done and reviewed by radiologist his findings are the lungs are clear and there is no pneumothorax or apical effusion pneumonia. Subsegmental consolidation of the right lung base is stable. No overt failure. Arthropathy of the shoulders and postoperative changes of the right shoulder. No overt failure. There is prominence of the ascending aorta. Impression right basilar atelectasis favored over infiltrate correlate clinically. #2 prominence of the ascending aorta be associated with ascending aortic aneurysm correlate with computed tomography scan. As read by Dr. Canseco chest x-ray was comparedto one that was done on 08/22/2015 and they are similar. The patient will be advised to follow-up with his family doctor concerning this finding noted today. Steri-Strips applied to the 1 mL laceration right eyebrow. Closure was good. Pressure was applied. Patient was told he might develop a shiner below that right eye. Disposition Clinical Impression: Fall, Narcolepsy Disposition: HOME SELF-CARE Condition: Fair Instructions: Fall Prevention for Older Adults (ED) Additional Instructions: apply ice to the eye area. Follow family physician concerning chest x-ray as we discussed. Referrals: Farrukh Rosenbaum MD [Primary Care Provider] - 1-2 days Time of Disposition: 11:53
--- NOTE | 2017-09-05 11:15 | CT ---
EXAMINATION TYPE: CT brain wo con DATE OF EXAM: 09/05/2017 HISTORY: Fall. Laceration above right eye. CT DLP: 1121 mGycm. Automated Exposure Control for Dose Reduction was Utilized. TECHNIQUE: CT scan of the head is performed without contrast. COMPARISON: CT brain from 2 days ago FINDINGS: There is no acute intracranial hemorrhage or midline shift identified. There is diffuse v entricular and sulcal prominence consistent with mild to minimal diffuse age-related cerebral atrophy . Baca-white matter differentiation is preserved. There is mild to moderate mucosal thickening in rig ht maxillary sinus with dependent air-fluid level. Remainder paranasal sinuses are clear. Globes are intact bilaterally. Small soft tissue hematoma preseptal region superolateral right globe is seen [place] r axial image 13. Intraconal fat is preserved. The calvarium is intact. IMPRESSION: No acute intracranial hemorrhage or midline shift. There is small right periorbital hem atoma. Possible acute on chronic right maxillary sinus disease. Correlate clinically.
--- NOTE | 2017-09-05 11:16 | XR ---
EXAMINATION TYPE: XR chest 2V DATE OF EXAM: 09/05/2017 COMPARISON: 09/03/2017 TECHNIQUE: PA and lateral views submitted. HISTORY: Pain FINDINGS: The lungs are clear and there is no pneumothorax or pleural effusion pneumonia. Subsegmental consol idation at the right lung base is stable. No overt failure. Arthropathy of the shoulders and postoper ative change right shoulder. No overt failure. There is prominence of the ascending aorta. IMPRESSION: 1. Right basilar atelectasis favored over infiltrate correlate clinically. 2. Prominence of the ascending aortic be associated with ascending aortic aneurysm correlate with CT scan.
[2017-09-05 12:15] VITALS: BP 138/56; PULSE 81; RESP 20
== END 2017-09-05 12:05 | disposition home or self-care (01) ==
LOC: EC 10:02
DX: G47.419 Narcolepsy without cataplexy (principal); S01.111A Laceration without foreign body of right eyelid and periocular area, initial encounter; M12.812 Other specific arthropathies, not elsewhere classified, left shoulder; M12.811 Other specific arthropathies, not elsewhere classified, right shoulder; J98.11 Atelectasis; G89.29 Other chronic pain; M54.9 Dorsalgia, unspecified; I10 Essential (primary) hypertension; Z87.891 Personal history of nicotine dependence; Z79.891 Long term (current) use of opiate analgesic; Z79.899 Other long term (current) drug therapy; Z87.39 Personal history of other diseases of the musculoskeletal system and connective tissue; W18.30XA Fall on same level, unspecified, initial encounter; Z98.890 Other specified postprocedural states; Y93.K1 Activity, walking an animal; Y92.89 Other specified places as the place of occurrence of the external cause
CPT/HCPCS: 70450; 71020; 99284

== ENCOUNTER 2017-10-02 09:39 | Emergency (ER) | payer MEDICARE, OTHER ==
[2017-10-02 09:55] VITALS: RESP 18
[2017-10-02] MEDS ORDERED: KETOROLAC 60 MG/2 ML VIAL IM STA (10:15)
--- NOTE | 2017-10-02 10:18 | ED ---
General Adult HPI - General Chief complaint: Extremity Problem,Nontraumatic Stated complaint: Pain in hands Time Seen by Provider: 10/02/17 10:05 Source: patient, RN notes reviewed Mode of arrival: ambulatory Limitations: no limitations - History of Present Illness Initial comments: 61 yo male presents to the ER with cc of bilateral thumb pain. He states that this started last night. Shooting pain to both sons. She stepped to bilateral elbows. He denies any falls or injuries with this. He denies any history of this in the past. He states he tried heat and ice without much improvement. He states that he was concerned due to the continued discomfort so he thought that he should be seen. Patient denies any other symptoms. Patient denies any recent fever, chills, shortness of breath, chest pain, back pain, abdominal pain , nausea vomiting, numbness or tingling, dysuria or hematuria, constipation or diarrhea, headaches or visual changes, or any other current symptoms. - Related Data Home Medications Medication Instructions Recorded Confirmed Atenolol 50 mg PO DAILY 09/17/16 10/02/17 Diazepam 10 mg PO BID PRN 09/17/16 10/02/17 oxyCODONE HCL 30 mg PO 5XD 09/17/16 10/02/17 Amoxicillin/Potassium Clav 1 tab PO Q12HR 10/02/17 10/02/17 [Augmentin 875-125 Tablet] Dextroamphetamine/Amphetamine 30 mg PO DAILY 10/02/17 10/02/17 [Adderall] Previous Rx's Medication Instructions Recorded predniSONE 50 mg PO DAILY #5 tab 10/02/17 Allergies Allergy/AdvReac Type Severity Reaction Status Date / Time No Known Allergies Allergy Verified 10/02/17 10:23 Review of Systems ROS Statement: Those systems with pertinent positive or pertinent negative responses have been documented in the HPI. ROS Other: All systems not noted in ROS Statement are negative. Past Medical History Past Medical History: Asthma, GERD/Reflux, Hypertension, Liver Disease Additional Past Medical History / Comment(s): Pt states currently being worked up for possible narcolepsy, hepatitis C, back pain/bulging discs/numbness down R leg at tiems, gastric ulcer. History of Any Multi-Drug Resistant Organisms: None Reported Past Surgical History: Back Surgery, Bariatric Surgery, Heart Catheterization, Orthopedic Surgery Additional Past Surgical History / Comment(s): gastric bypass, R rotator cuff repair, R knee arthroscopy, R carpal tunnel release, cardiac cath-normal. Past Anesthesia/Blood Transfusion Reactions: No Reported Reaction Past Psychological History: Anxiety Smoking Status: Former smoker - Past Family History Father Family Medical History: Hypertension Additional Family Medical History / Comment(s): ETOH abuse Mother Family Medical History: Dementia General Exam Limitations: no limitations General appearance: alert, in no apparent distress ENT exam: Present: normal exam, mucous membranes moist Neck exam: Present: normal inspection. Absent: tenderness, meningismus, lymphadenopathy Respiratory exam: Present: normal lung sounds bilaterally. Absent: respiratory distress, wheezes, rales, rhonchi, stridor Cardiovascular Exam: Present: regular rate, normal rhythm, normal heart sounds. Absent: systolic murmur, diastolic murmur, rubs, gallop, clicks Extremities exam: Present: normal inspection, full ROM, tenderness (At the base of bilateral thumbs), normal capillary refill. Absent: pedal edema, joint swelling, calf tenderness Back exam: Present: normal inspection Neurological exam: Present: alert, oriented X3 Psychiatric exam: Present: normal affect, normal mood Skin exam: Present: warm, dry, intact, normal color. Absent: rash Course Vital Signs 10/02/17 09:53 Temperature 97.1 F L Pulse Rate 91 Respiratory 18 Rate Blood Pressure 157/91 O2 Sat by Pulse 95 Oximetry Medical Decision Making - Medical Decision Making 61-year-old male presents for bilateral thumb pain. At this time x-rays have been reviewed that do show severe osteoarthritis. At this time suspicion for possible gout exam does not show suspicion for this with him on steroids help with inflammation. We did discuss close follow-up with orthopedic we did give him their information. We discussed return parameters all questions. This time the patient will be discharged home. He is in agreement this plan all questions have been answered. - Radiology Data Radiology results: report reviewed, image reviewed Disposition Clinical Impression: Osteoarthritis of thumbs, bilateral Disposition: HOME SELF-CARE Condition: Stable Instructions: Osteoarthritis (ED) Additional Instructions: Please use medication as discussed. Please follow up with family doctor if symptoms have not improved over the next two days. Please return to the emergency room if your symptoms increase or worsen or for any other concerns. Prescriptions: predniSONE 50 mg PO DAILY #5 tab Referrals: Farrukh Rosenbaum MD [Primary Care Provider] - 1-2 days Time of Disposition: 11:23
--- NOTE | 2017-10-02 11:15 | XR ---
EXAMINATION TYPE: XR hand complete bilateral DATE OF EXAM: 10/02/2017 CLINICAL HISTORY: Bilateral thumb pain with no known injury. TECHNIQUE: Frontal, lateral and oblique images of the bilateral hands were obtained. COMPARISON: None. FINDINGS: There is no acute fracture/dislocation evident in the either hand. Osseous mineralization is within normal limits. Left: Osseous cortical erosions, subchondral sclerosis and osseous irregularity are seen at the left first metacarpal phalangeal joint with radial subluxation and without corrie dislocation. Blunted ulna r styloid appears similar to the exam of 2012 and may be congenital rather than styloid erosion. No o ther significant degenerative changes are seen of the left hand. Punctate foreign bodies measuring 2 mm each are seen within the soft tissues overlying the tuft of the distal phalanx of both the first a nd fourth digits on the left. The fourth is located radially and volarly and the first is located uln ar and volar. No focal soft tissue swelling. Right: As on the left there are degenerative changes of the first metacarpal phalangeal joint, howeve r no cortical erosions are seen. There is joint space narrowing, marginal osteophytes, and subchondra l sclerosis/joint space narrowing. Similar mild changes are seen at the distal interphalangeal joint of the first digit and fifth digit. No focal soft tissue swelling. IMPRESSION: 1. Extensive degenerative changes of the first metacarpal phalangeal joint suggesting erosive osteoar thritis with differential diagnosis of gout and CPPD. Rheumatoid arthritis is unlikely given the lack of other findings. 2. Mild to moderate degenerative changes of the right first metacarpal phalangeal joint, distal first interphalangeal joint and distal fifth interphalangeal joint with the distribution suggesting osteoa rthritis.
--- NOTE | 2017-10-02 11:15 | XR ---
EXAMINATION TYPE: XR cervical spine comp DATE OF EXAM: 10/02/2017 COMPARISON: NONE HISTORY: Cervical neck pain TECHNIQUE: 5 view cervical spine FINDINGS: C4-5 C5-6 C6-7 and C7-T1 disc space narrowing is present. There is a kyphosis centered at C 5. Large anterior vertebral body spurs are present C4-C6. Minimal posterior vertebral body spurring a t the endplates appears to be present C4-5 C6-7. Posterior spinal lamellar line is intact. Vertebral body heights are preserved. Prevertebral space appears within normal limits. Facet degenerative raymundo es noted. There is moderate foraminal stenosis at the right C3-4 foramen and likely present on the ri ght at C4-5, C5-6, C6-7 and C7-T1. Some foraminal stenosis at C6-7 on the left may be present as well . Odontoid is limited due to overlying occiput despite multiple attempts. IMPRESSION: 1. Right-sided foraminal stenosis. 2. Anterior vertebral body spurs and kyphosis.
[2017-10-02 11:47] VITALS: BP 130/84; PULSE 82; TEMP 97.2
== END 2017-10-02 11:47 | disposition home or self-care (01) ==
LOC: EC 09:39
DX: M19.042 Primary osteoarthritis, left hand (principal); M19.041 Primary osteoarthritis, right hand; I10 Essential (primary) hypertension; F41.9 Anxiety disorder, unspecified; Z87.891 Personal history of nicotine dependence; Z79.891 Long term (current) use of opiate analgesic; Z79.899 Other long term (current) drug therapy
CPT/HCPCS: 99283 ×2; 96372 ×2; 73130; 72050; 71275; Q9967; J1885

== ENCOUNTER → 2017-10-02 | Outpatient (CLI) | payer MEDICARE, OTHER ==
--- NOTE | 2017-10-02 17:49 | CT ---
EXAMINATION TYPE: CT angio chest DATE OF EXAM: 10/02/2017 5:23 PM COMPARISON: NONE HISTORY: Ascending Aorta Dilation CT DLP: 583.5 mGycm Automated exposure control for dose reduction was used. CONTRAST: CTA scan of the thorax is performed with IV Contrast, patient injected with 100ml mL of Omnipaque 350 , pulmonary embolism protocol. There are 3-D post processed images.. FINDINGS: There is a hiatal hernia. The lungs are clear of consolidation. There is no evidence of a pulmonary m ass. There is no pleural effusion. There is aneurysm of ascending aorta measures 4.1 cm. There is no sign of dissection. I see no filling defects in the pulmonary arteries. There is no mediastinal adenopathy. There are no hilar masses. There is no pericardial effusion. There are surgical clips at the gastric fundus. There is some patchy linear density at the right lung base. The bony thorax appears intact. IMPRESSION: HIATAL HERNIA. PREVIOUS GASTRIC SURGERY. MILD ATELECTASIS AT THE RIGHT LUNG BASE. NO EVIDENCE OF PULM ONARY EMBOLISM. 4.1 CM ANEURYSM OF ASCENDING AORTA.
== END | disposition home or self-care (01) ==
LOC: RADCTMAIN 16:22
PROVIDERS: ATTEND Family Medicine
DX: K44.9 Diaphragmatic hernia without obstruction or gangrene (principal); J98.11 Atelectasis; I71.2 Thoracic aortic aneurysm, without rupture
CPT/HCPCS: 71275; Q9967

== ENCOUNTER → 2017-12-12 | Outpatient (CLI) | payer MEDICARE, OTHER ==
[2017-12-12 13:10] LABS: Albumin 3.9 g/dL (3.5-5.0); Bilirubin, Delta 0.3 mg/dL (0.0-0.2); Total Bilirubin 0.3 mg/dL (0.2-1.3); Total Protein 6.7 g/dL (6.3-8.2)
[2017-12-13 16:44] LABS: Hepatits C Virus RNA DETECTED (Not detected)
== END | disposition home or self-care (01) ==
LOC: LABWHC1 12:03
DX: B18.2 Chronic viral hepatitis C (principal)
CPT/HCPCS: 36415; 80076; 87522

== ENCOUNTER 2017-12-22 09:45 | Emergency (ER) | payer MEDICARE, OTHER ==
[2017-12-22 09:50] VITALS: BP 166/84; PULSE 77; RESP 20; TEMP 98
--- NOTE | 2017-12-22 10:13 | ED ---
General Adult HPI - General Chief complaint: Fall Stated complaint: Fall Time Seen by Provider: 12/22/17 09:53 Source: patient, RN notes reviewed Mode of arrival: ambulatory Limitations: no limitations - History of Present Illness Initial comments: Patient 62-year-old male presented to the emergency room today with a chief complaint of a trip and fall that occurred yesterday. He states it was a wooden pole sidewalk that he tripped over. Patient states that he fell down to the right side. He does admit that he does have an abrasion to the lateral aspect of the right knee. He doesn't some pain to the posterior aspect of the right knee. Patient admits to chronic back pain. He does admit that he feels some radiation going down into the right hip area. Patient states he did take his oxycodone at home. He states it difficult time sleeping last night due to the pain. Patient denies any head injury or loss conscious. Denies any other complaints or symptoms. Patient denies any recent fever, chills, shortness of breath, chest pain, abdominal pain, nausea or vomiting, headaches or visual changes, or any other complaints. - Related Data Home Medications Medication Instructions Recorded Confirmed Atenolol 50 mg PO DAILY 09/17/16 10/02/17 Diazepam 10 mg PO BID PRN 09/17/16 10/02/17 oxyCODONE HCL 30 mg PO 5XD 09/17/16 10/02/17 Amoxicillin/Potassium Clav 1 tab PO Q12HR 10/02/17 10/02/17 [Augmentin 875-125 Tablet] Dextroamphetamine/Amphetamine 30 mg PO DAILY 10/02/17 10/02/17 [Adderall] Previous Rx's Medication Instructions Recorded predniSONE 50 mg PO DAILY #5 tab 10/02/17 Dexamethasone 0.75 mg PO DIRECTED #12 tablet 12/22/17 Allergies Allergy/AdvReac Type Severity Reaction Status Date / Time No Known Allergies Allergy Verified 12/22/17 09:50 Review of Systems ROS Statement: Those systems with pertinent positive or pertinent negative responses have been documented in the HPI. ROS Other: All systems not noted in ROS Statement are negative. Past Medical History Past Medical History: Asthma, GERD/Reflux, Hypertension, Liver Disease Additional Past Medical History / Comment(s): Pt states currently being worked up for possible narcolepsy, hepatitis C, back pain/bulging discs/numbness down R leg at tiems, gastric ulcer. History of Any Multi-Drug Resistant Organisms: None Reported Past Surgical History: Back Surgery, Bariatric Surgery, Heart Catheterization, Orthopedic Surgery Additional Past Surgical History / Comment(s): gastric bypass, R rotator cuff repair, R knee arthroscopy, R carpal tunnel release, cardiac cath-normal. Past Anesthesia/Blood Transfusion Reactions: No Reported Reaction Past Psychological History: Anxiety Smoking Status: Former smoker Past Alcohol Use History: None Reported Past Drug Use History: None Reported - Past Family History Father Family Medical History: Hypertension Additional Family Medical History / Comment(s): ETOH abuse Mother Family Medical History: Dementia General Exam - General Exam Comments Initial Comments: General: The patient is awake and alert, in no distress, and does not appear acutely ill. Neck: The neck is supple, there is no tenderness or JVD. Cardiovascular: There is a regular rate and rhythm. No murmur, rub or gallop is appreciated. Respiratory: Lungs are clear to auscultation, respirations are non-labored, breath sounds are equal. No wheezes, stridor, rales, or rhonchi. Musculoskeletal: Patient has normal appearance of the right knee no obvious deformity. Shows good range of motion of the right ankle, right knee, right hip. Patient has no step-off deformity of the thoracic or lumbar spine. Mild tenderness at L3. Patient sensations are intact. Pulses are equal bilaterally 2+. Strength is 5/5. Neurological: A&O x 3. CN II-XII intact, There are no obvious motor or sensory deficits. Coordination appears grossly intact. Speech is normal. Skin: Skin is warm and dry and no rashes or lesions are noted. Psychiatric: Normal mood and affect. Limitations: no limitations Course Vital Signs 12/22/17 09:47 Temperature 98.0 F Pulse Rate 77 Respiratory 20 Rate Blood Pressure 166/84 O2 Sat by Pulse 97 Oximetry Medical Decision Making - Medical Decision Making Patient reexamined at this time shows no signs of distress is resting comfortable. He does have oxycodone at home that he uses for pain. He does have chronic back pain. He states that he has chronic symptoms of radiating into the right leg at times. Denies any bowel or bladder incontinence retention. Denies any saddle anesthesia. Patient x-rays of been reviewed showing no acute abnormalities of the lumbar spine and the right knee. Patient will be discharged home will be placed on a steroid to see if it helps with his radicular pain. Advised to follow-up with his family physician which he states he does have an appointment coming up in the next 2 days. Advised return if any symptoms increase worsen. Disposition Clinical Impression: Fall, Acute exacerbation of chronic low back pain, Contusion of right knee Disposition: HOME SELF-CARE Condition: Good Instructions: Lumbar Radiculopathy (ED) Additional Instructions: Please use medication as discussed. Please follow-up with family doctor in the next 2 days of symptoms have not improved. Please return to emergency room if the symptoms increase or worsen or for any other concerns. Prescriptions: Dexamethasone 0.75 mg PO DIRECTED #12 tablet Referrals: Farrukh Rosenbaum MD [Primary Care Provider] - 1-2 days Time of Disposition: 10:40
--- NOTE | 2017-12-22 10:20 | XR ---
EXAMINATION TYPE: XR lumbar spine 2 or 3V , 3 VIEWS DATE OF EXAM ORDERED: 12/22/2017 HISTORY: Pain. COMPARISON: None. FINDINGS: There is a moderate dextroscoliosis. There is straightening of the normal cervical lumbar lordosis. Alignment remains normal. There is mar ked disc space loss at L3-4, L4-5 and L5-S1. There is spondylosis deformans present at L3-4. The pedi cles are intact. No bony destructive lesion is seen. IMPRESSION: 1. NO ACUTE OSSEOUS LESION. 2. FAIRLY SEVERE DEGENERATIVE CHANGE.
--- NOTE | 2017-12-22 10:21 | XR ---
EXAMINATION TYPE: XR knee complete RT , 3 VIEWS DATE OF EXAM ORDERED: 12/22/2017 HISTORY: Pain. COMPARISON: None. FINDINGS: There is lateral joint space loss. There is peaking of intercondylar spines. There is vj deling change in the medial compartment. No definite joint effusion is seen. No acute osseous lesion is seen. IMPRESSION: OSTEOARTHRITIS.
== END 2017-12-22 10:46 | disposition home or self-care (01) ==
LOC: EC 09:45
DX: S80.01XA Contusion of right knee, initial encounter (principal); M54.5 Low back pain; G89.29 Other chronic pain; M79.604 Pain in right leg; I10 Essential (primary) hypertension; Z87.891 Personal history of nicotine dependence; Z86.19 Personal history of other infectious and parasitic diseases; Z87.39 Personal history of other diseases of the musculoskeletal system and connective tissue; Z79.891 Long term (current) use of opiate analgesic; Z98.890 Other specified postprocedural states; W01.0XXA Fall on same level from slipping, tripping and stumbling without subsequent striking against object, initial encounter; Y93.01 Activity, walking, marching and hiking; Y92.009 Unspecified place in unspecified non-institutional (private) residence as the place of occurrence of the external cause
CPT/HCPCS: 72100; 99283

== ENCOUNTER 2017-12-29 09:15 | Emergency (ER) | payer MEDICARE, OTHER ==
[2017-12-29 09:20] VITALS: RESP 16
--- NOTE | 2017-12-29 09:29 | ED ---
Lower Extremity Injury HPI - General Chief Complaint: Extremity Injury, Lower Stated Complaint: rt hip ,knee,phillips pain Time Seen by Provider: 12/29/17 09:22 Source: patient, RN notes reviewed Mode of arrival: ambulatory Limitations: no limitations - History of Present Illness Initial Comments: This is a 52-year-old male presents emergency Department with right hip pain. Patient states she seen here 1 week ago for a fall. Patient states she tripped over a board fell onto his right hip. Patient states he had x-rays of the time. He states he has continued pain in his right hip and states occasionally radiates down his right leg. Denies any bowel bladder incontinence or retention. Patient denies any saddle anesthesias. Patient has chronic back pain. Patient denies any dysuria, hematuria. Patient states she does take pain medications weren't back was not helping. - Related Data Home Medications Medication Instructions Recorded Confirmed Atenolol 50 mg PO DAILY 09/17/16 10/02/17 Diazepam 10 mg PO BID PRN 09/17/16 10/02/17 oxyCODONE HCL 30 mg PO 5XD 09/17/16 10/02/17 Amoxicillin/Potassium Clav 1 tab PO Q12HR 10/02/17 10/02/17 [Augmentin 875-125 Tablet] Dextroamphetamine/Amphetamine 30 mg PO DAILY 10/02/17 10/02/17 [Adderall] Previous Rx's Medication Instructions Recorded predniSONE 50 mg PO DAILY #5 tab 10/02/17 Dexamethasone 0.75 mg PO DIRECTED #12 tablet 12/22/17 predniSONE 50 mg PO DAILY #5 tab 12/29/17 Allergies Allergy/AdvReac Type Severity Reaction Status Date / Time No Known Allergies Allergy Verified 12/29/17 09:20 Review of Systems ROS Statement: Those systems with pertinent positive or pertinent negative responses have been documented in the HPI. ROS Other: All systems not noted in ROS Statement are negative. Past Medical History Past Medical History: Asthma, GERD/Reflux, Hypertension, Liver Disease Additional Past Medical History / Comment(s): Pt states currently being worked up for possible narcolepsy, hepatitis C, back pain/bulging discs/numbness down R leg at tiems, gastric ulcer. History of Any Multi-Drug Resistant Organisms: None Reported Past Surgical History: Back Surgery, Bariatric Surgery, Heart Catheterization, Orthopedic Surgery Additional Past Surgical History / Comment(s): gastric bypass, R rotator cuff repair, R knee arthroscopy, R carpal tunnel release, cardiac cath-normal. Past Anesthesia/Blood Transfusion Reactions: No Reported Reaction Past Psychological History: Anxiety Smoking Status: Former smoker Past Alcohol Use History: None Reported Past Drug Use History: None Reported - Past Family History Father Family Medical History: Hypertension Additional Family Medical History / Comment(s): ETOH abuse Mother Family Medical History: Dementia General Exam Limitations: no limitations General appearance: alert, in no apparent distress Head exam: Present: atraumatic, normocephalic, normal inspection Respiratory exam: Present: normal lung sounds bilaterally. Absent: respiratory distress, wheezes, rales, rhonchi, stridor Cardiovascular Exam: Present: regular rate, normal rhythm, normal heart sounds. Absent: systolic murmur, diastolic murmur, rubs, gallop, clicks GI/Abdominal exam: Present: soft, normal bowel sounds. Absent: distended, tenderness, guarding, rebound, rigid Extremities exam: Present: other (Mild tenderness the right hip no pain with log rolling mild pain with traction on the right hip. Pedal pulses are equal bilaterally. Leg is neurovascularly intact no discoloration or change in color or warmth) Skin exam: Present: warm, dry, intact, normal color. Absent: rash Course Vital Signs 12/29/17 09:18 Temperature 97.5 F L Pulse Rate 79 Respiratory 16 Rate Blood Pressure 146/93 O2 Sat by Pulse 96 Oximetry Medical Decision Making - Medical Decision Making 62-year-old male presented from for right hip leg pain. Patient's pain seems more consistent with lumbar radiculopathy complaint right hip pain. Patient had prior x-rays of knee and back which were unremarkable. CT of the hip does not show any acute fracture. There is concerns for bony island versus metastasis. Patient follow-up with orthopedics for bone scan. Patient patient' s steroids in addition to his pain meds. Return parameters were discussed. Disposition Clinical Impression: Lumbar radiculopathy, acute, Right hip pain Disposition: HOME SELF-CARE Condition: Stable Instructions: Lumbar Radiculopathy (ED) Additional Instructions: Please return to the Emergency Department if symptoms worsen or any other concerns. Prescriptions: predniSONE 50 mg PO DAILY #5 tab Referrals: Farrukh Rosenbaum MD [Primary Care Provider] - 1-2 days Zenon Seo MD [STAFF PHYSICIAN] - 1-2 days Time of Disposition: 09:56
--- NOTE | 2017-12-29 09:49 | CT ---
EXAMINATION TYPE: CT hip RT wo con DATE OF EXAM: 12/29/2017 COMPARISON: NONE HISTORY: Right sided hip pain post fall [address] DLP: 303.5 mGycm Automated exposure control for dose reduction was used. FINDINGS: Image soft tissues are normal. There is pseudocystic change within the humeral head and acetabulum. There is a bone island in the hu meral head and a second in the neck. No fracture is seen. The femoral head is nonspherical. IMPRESSION: 1. NO ACUTE FRACTURE. 2. DEGENERATIVE CHANGE. 3. FINDINGS SUGGESTIVE OF FEMOROACETABULAR IMPINGEMENT SYNDROME. PLEASE CORRELATE CLINICALLY. 4. 2 SCLEROTIC LESIONS WITHIN THE RIGHT FEMORAL HEAD AND NECK. ALTHOUGH THESE MAY REPRESENT BONE SOHAM NDS. A NUCLEAR MEDICINE WHOLE BODY BONE SCAN TO BE SUGGESTED TO EXCLUDE METASTASES.
[2017-12-29 10:14] VITALS: BP 144/86; PULSE 59; TEMP 97.9
== END 2017-12-29 10:29 | disposition home or self-care (01) ==
LOC: EC 09:15
DX: M54.16 Radiculopathy, lumbar region (principal); I10 Essential (primary) hypertension; Z98.890 Other specified postprocedural states; Z95.818 Presence of other cardiac implants and grafts; Z87.891 Personal history of nicotine dependence; Z79.891 Long term (current) use of opiate analgesic; Z79.899 Other long term (current) drug therapy; W01.0XXD Fall on same level from slipping, tripping and stumbling without subsequent striking against object, subsequent encounter
CPT/HCPCS: 99284

== ENCOUNTER 2018-02-16 20:05 | Emergency (ER) | payer MEDICARE, OTHER ==
[2018-02-16 20:30] VITALS: BP 149/82; PULSE 64; RESP 18; TEMP 97.8
--- NOTE | 2018-02-16 20:46 | ED ---
Wound/Laceration HPI - General Chief Complaint: Wound/Laceration Stated Complaint: finger lac Time Seen by Provider: 02/16/18 20:16 Source: patient Mode of arrival: ambulatory Limitations: no limitations - History of Present Illness Initial Comments: 62-year-old male presents with laceration to the left fifth digit that occurred prior to arrival. Patient was tried open a bad with a knife and it slipped and he punctured his left fifth digit right on the PIP region. Patient denies any loss of sensation or range of motion. Patient may think he may hit the bone. He states his tetanus is up-to-date no other injury. Extremity Location: Left: Hand Place: home Patient Tetanus UTD: Yes Associated Symptoms: none Treatments Prior to Arrival: bandage - Related Data Home Medications Medication Instructions Recorded Confirmed Atenolol 50 mg PO DAILY 09/17/16 10/02/17 Diazepam 10 mg PO BID PRN 09/17/16 10/02/17 oxyCODONE HCL 30 mg PO 5XD 09/17/16 10/02/17 Amoxicillin/Potassium Clav 1 tab PO Q12HR 10/02/17 10/02/17 [Augmentin 875-125 Tablet] Dextroamphetamine/Amphetamine 30 mg PO DAILY 10/02/17 10/02/17 [Adderall] Previous Rx's Medication Instructions Recorded predniSONE 50 mg PO DAILY #5 tab 10/02/17 Dexamethasone 0.75 mg PO DIRECTED #12 tablet 12/22/17 predniSONE 50 mg PO DAILY #5 tab 12/29/17 Allergies Allergy/AdvReac Type Severity Reaction Status Date / Time No Known Allergies Allergy Verified 02/16/18 20:30 Review of Systems ROS Statement: Those systems with pertinent positive or pertinent negative responses have been documented in the HPI. ROS Other: All systems not noted in ROS Statement are negative. Skin: Reports: other (laceration to left 5th digit) Neurological: Denies: weakness, numbness, paresthesias Past Medical History Past Medical History: Asthma, GERD/Reflux, Hypertension, Liver Disease Additional Past Medical History / Comment(s): Pt states currently being worked up for possible narcolepsy, hepatitis C, back pain/bulging discs/numbness down R leg at tiems, gastric ulcer. History of Any Multi-Drug Resistant Organisms: None Reported Past Surgical History: Back Surgery, Bariatric Surgery, Heart Catheterization, Orthopedic Surgery Additional Past Surgical History / Comment(s): gastric bypass, R rotator cuff repair, R knee arthroscopy, R carpal tunnel release, cardiac cath-normal. Past Anesthesia/Blood Transfusion Reactions: No Reported Reaction Past Psychological History: Anxiety Smoking Status: Former smoker Past Alcohol Use History: None Reported Past Drug Use History: None Reported - Past Family History Father Family Medical History: Hypertension Additional Family Medical History / Comment(s): ETOH abuse Mother Family Medical History: Dementia General Exam Limitations: no limitations General appearance: alert, in no apparent distress Neurological exam: Present: alert, oriented X3, CN II-XII intact Psychiatric exam: Present: normal affect, normal mood Skin exam: Present: warm, dry, normal color. Absent: intact (Less than one him ear simple laceration to the left fifth digit PIP region full range of motion full sensation good capillary refill good radial pulse), rash Course Vital Signs 02/16/18 20:22 Temperature 97.8 F Pulse Rate 64 Respiratory 18 Rate Blood Pressure 149/82 O2 Sat by Pulse 97 Oximetry Procedures - Laceration Laceration #1 Indication: laceration Site: hand Description: linear Depth: simple, single layer Anesthetic Used: lidocaine 1% Pre-repair: wound explored, irrigated extensively, deep structures intact Size of Sutures: 5-0 Number of Sutures: 3 Technique: simple, interrupted Patient Tolerated Procedure: well, no complications Medical Decision Making - Medical Decision Making Reviewed x-ray negative for any acute fractures patient aware patient to keep area clean dry and covered keep monitored for increased signs of infection redness swelling discharge or pain. Disposition Clinical Impression: Laceration Disposition: HOME SELF-CARE Condition: Good Instructions: Care For Your Stitches (ED), Laceration (ED) Additional Instructions: suture removal in 7-10 days Is patient prescribed a controlled substance at d/c from ED?: No Referrals: Farrukh Rosenbaum MD [Primary Care Provider] - 1-2 days Time of Disposition: 21:05
--- NOTE | 2018-02-16 20:55 | XR ---
EXAMINATION TYPE: XR finger LT DATE OF EXAM: 02/16/2018 COMPARISON: NONE HISTORY: Laceration and pain TECHNIQUE: 3 views FINDINGS: There is some narrowing of the DIP joint space. I see no fracture nor dislocation. There ar e no erosions. There is mild soft tissue swelling at the PIP joint. IMPRESSION: No acute abnormality of the left little finger.
== END 2018-02-16 21:11 | disposition home or self-care (01) ==
LOC: EC 20:05
DX: S61.217A Laceration without foreign body of left little finger without damage to nail, initial encounter (principal); I10 Essential (primary) hypertension; Z87.891 Personal history of nicotine dependence; Z79.891 Long term (current) use of opiate analgesic; Z79.899 Other long term (current) drug therapy; W26.0XXA Contact with knife, initial encounter; Y93.G9 Activity, other involving cooking and grilling; Y92.009 Unspecified place in unspecified non-institutional (private) residence as the place of occurrence of the external cause
CPT/HCPCS: 12001; 99283

== ENCOUNTER → 2018-02-28 | Outpatient (CLI) | payer MEDICARE, OTHER ==
--- NOTE | 2018-02-28 17:05 | CT ---
EXAMINATION TYPE: CT angio chest DATE OF EXAM: 02/28/2018 COMPARISON: Prior CT angiogram 10/02/2017 HISTORY: Thoracic Aortic aneurysm without rupture CT DLP: 834 mGycm Automated exposure control for dose reduction was used. CONTRAST: CTA scan of the thorax is performed without and with IV Contrast, patient injected with 100 ml mL of Isovue 370, pulmonary embolism protocol. MIP images are created and reviewed. 3D reconstructed imag es are created on an independent workstation and reviewed. FINDINGS: LUNGS: The lungs are grossly clear, there is no concerning parenchymal mass or nodule identified. T here is no pleural effusion or pneumothorax seen. The tracheobronchial tree is patent. AORTA: The level of the aortic root the aorta measures approximately 2.7 cm, descending aorta approxi mately 4.1 cm, proximal descending aorta 2.6 cm, distally the aorta measures approximately 2.5 cm at the hiatus. The super aortic branch vessels are patent. MEDIASTINUM: There is satisfactory enhancemen t of the pulmonary artery and its branches, there is no CT evidence for pulmonary embolism. There ar e no greater than 1 cm hilar or mediastinal lymph nodes. No pericardial effusion is seen. There is no luminal filling defect to suggest dissection. OTHER: Pulmonary artery somewhat prominent at 3.2 cm, correlate for possible pulmonary artery hypert ension. Postop changes are noted at the gastroesophageal junction, distal esophagus appears somewhat thickened, postop changes are noted to the stomach. Celiac axis, renal arteries, superior mesenteric artery are patent. Bilateral nonobstructive renal calculi are present.. IMPRESSION: ESSENTIALLY STABLE FINDINGS WITH ASCENDING AORTIC ANEURYSM.
== END | disposition home or self-care (01) ==
LOC: RADCTMAIN 09:16
PROVIDERS: ATTEND Family Medicine
DX: I71.2 Thoracic aortic aneurysm, without rupture (principal)
CPT/HCPCS: 71275; Q9967

== ENCOUNTER → 2018-07-23 | Outpatient (CLI) | payer MEDICARE ==
--- NOTE | 2018-07-23 10:40 | XR ---
EXAMINATION TYPE: XR Hip Complete RT DATE OF EXAM: 07/23/2018 COMPARISON: NONE HISTORY: Pain TECHNIQUE: 2 views submitted FINDINGS: There is no evidence of erosive change or acute fracture. Moderate to severe concentric narrowing the joint space. Sclerotic densities overlying the femur may been the basis of bone island. No erosive c hanges. IMPRESSION: 1. No evidence of acute fracture or dislocation. 2. Arthropathy of the hip joint follow-up MRI as clinically warranted.
--- NOTE | 2018-07-23 10:43 | XR ---
EXAM TYPE: LUMBAR SPINE X RAY SERIES COMPARISON: NONE HISTORY: Pain TECHNIQUE: 4 views are submitted. FINDINGS: Alignment is anatomic. The pedicles are intact. The transverse processes are intact. There is no s pondylolysis or spondylolisthesis. Curvature the spine with multilevel hypertrophic and degenerative disc disease. Suggestion of fusion of the L3 and L4 vertebral segments and possibly the L2 and L3 se gments with severe degenerative disc disease noted. Surgical clips in the abdomen noted. Calcificatio ns the left abdomen could be on the basis of renal calculi. IMPRESSION: 1. Curvature of the spine with multilevel severe degenerative disc disease and hypertrophic changes. There may be mild uncovertebral segment fusion secondary to hypertrophic changes. Suspect canal steno sis and foraminal encroachment at levels L2-S1.
== END | disposition home or self-care (01) ==
LOC: RADXRMAIN 09:59
PROVIDERS: ATTEND Family Medicine
DX: M51.36 Other intervertebral disc degeneration, lumbar region (principal); M16.11 Unilateral primary osteoarthritis, right hip
CPT/HCPCS: 72100; 73502

== ENCOUNTER → 2018-08-25 | Outpatient (CLI) | payer MEDICARE ==
--- NOTE | 2018-08-25 09:18 | XR ---
EXAMINATION TYPE: XR knee complete RT DATE OF EXAM: 08/25/2018 COMPARISON: 12/22/2017 HISTORY: Pain TECHNIQUE: Four views are submitted. FINDINGS: There is lateral joint space loss. There is peaking of intercondylar spines. There is remodeling bahena ge in the medial compartment. No definite joint effusion is seen. No acute osseous lesion is seen. No erosive changes. Arthropathy and hypertrophic change of the patellofemoral joint with suprapatell ar bursal fluid collection. IMPRESSION: 1. Findings are suggestive of osteoarthritis. Moderate-sized suprapatellar bursal fluid collection. C orrelate with MRI as clinically warranted.
== END | disposition home or self-care (01) ==
LOC: RADXRMAIN 08:50
PROVIDERS: ATTEND Family Medicine
DX: M23.91 Unspecified internal derangement of right knee (principal)

== ENCOUNTER → 2018-08-26 | Outpatient (CLI) | payer MEDICARE | END | disposition home or self-care (01) | LOC: LABWHC1 07:01 | PROVIDERS: ATTEND Family Medicine | DX: M48.061 Spinal stenosis, lumbar region without neurogenic claudication (principal) | CPT/HCPCS: 36415; 82565; 84520 ==

== ENCOUNTER → 2018-08-27 | Outpatient (CLI) | payer MEDICARE ==
--- NOTE | 2018-08-27 16:11 | MR ---
EXAMINATION TYPE: MR lumbar spine wo/w con DATE OF EXAM: 08/27/2018 COMPARISON: Prior lumbar MRI 04/05/2017 HISTORY: Spinal stenosis, lumbar region TECHNIQUE: Multiplanar, multisequence images of the lumbar spine were acquired utilizing 7.5 mL intravenous Gada vist gadolinium contrast. L1-L2: Posterior broad-based disc bulge causes mild anterior mass effect on the thecal sac. Facet art hropathy causes some posterior lateral mass effect on the thecal sac. No significant central stenosis or foraminal encroachment. L2-L3: Posterior extension of endplate disc complex causes only minimal anterior mass effect on the t hecal sac. Facet arthropathy is present causing some posterior lateral mass effect on the thecal sac. Some left-sided foraminal encroachment is likely contributed by scoliosis, lateral extension endplat e disc complex. No significant central stenosis. L3-L4: Circumferential extension of endplate disc complex results in foraminal encroachment bilateral ly. Facet arthropathy with hypertrophy ligamentum flavum associated trefoil appearance to the thecal sac as on prior exam. L4-L5: Circumferential extension of endplate disc complex causes mild anterior mass effect on the the rosa m sac. Hypertrophic changes of the facets causes some minimal lateral mass effect on the thecal sac . No significant central stenosis. Circumferential extension of endplate disc complex results in high degree of foraminal encroachment right greater than left prior exam. Laminectomies present. L5-S1: Stable appearance. Facet arthropathy is present. Endplate extends laterally to cause some righ t-sided foraminal encroachment as on prior. Laminectomies are present. Lumbar segments are intact. No paraspinal masses are identified. Conus medullaris has a normal appe arance. Lumbar vertebral bodies show stable height, alignment, there is a dextroscoliosis centered at the mid lumbar spine. Endplate discogenic marrow signal changes are again noted, there is loss of di sc height signal especially at L4-5, L3-4 and L2-3 multilevel spondylosis is present, vacuum phenomen on present at intervertebral levels. Suspect small cortical cyst associated with the right kidney. No abnormal enhancement following contrast administration. IMPRESSION: Stable degenerative disc disease, facet arthropathy, scoliosis.
== END | disposition home or self-care (01) ==
LOC: RADMRIMAIN 12:32
PROVIDERS: ATTEND Family Medicine
DX: M51.36 Other intervertebral disc degeneration, lumbar region (principal); M46.97 Unspecified inflammatory spondylopathy, lumbosacral region; M41.86 Other forms of scoliosis, lumbar region
CPT/HCPCS: 72158

== ENCOUNTER → 2018-12-03 | Outpatient (CLI) | payer MEDICARE ==
[2018-12-03 14:16] LABS: Blood Urea Nitrogen 19 mg/dL (9-20)
--- NOTE | 2018-12-03 15:07 | CT ---
EXAMINATION TYPE: CT angio chest DATE OF EXAM: 12/03/2018 COMPARISON: CTA chest February 28, 2018 and older CTs HISTORY: Thoracic aortic aneurysm, without rupture. CT DLP: 362.6 mGycm. Automated Exposure Control for Dose Reduction was Utilized. CONTRAST: CTA scan of the thorax is performed with IV Contrast, patient injected with 100ml mL of Isovue 370, p ulmonary embolism protocol. Three-D reconstructed images are created on independent workstation and r eviewed. FINDINGS: LUNGS: Increasing linear opacity right lung base favors worsening scarring and/or atelectasis most pr ominent posteriorly. Remainder of both lungs are predominantly clear. No suspicious nodules or masses are identified. No pleural effusion or pneumothorax is seen bilaterally. MEDIASTINUM: Ascending aorta measures up to 3.9 cm in diameter axial image 29 not significant change from prior studies. There are no greater than 1 cm hilar or mediastinal lymph nodes. No cardiomega ly or pericardial effusion is seen. Rightward positioning of cardiac apex is unchanged from prior mikie dies. OTHER: Surgical changes the gastroesophageal junction from John fundoplication surgery with focal d ilatation and wall thickening of adjacent distal esophagus is redemonstrated. Some areas of cortical thinning with small bilateral renal calculi are redemonstrated in both kidneys. There is 1.5 cm simpl e appearing cyst left hepatic lobe axial image 59 redemonstrated. IMPRESSION: Stable 3.9 cm aneurysm of the ascending aorta. No significant change from prior CTs.
== END | disposition home or self-care (01) ==
LOC: RADCTMAIN 13:41
PROVIDERS: ATTEND Surgery
DX: I71.2 Thoracic aortic aneurysm, without rupture (principal)
CPT/HCPCS: 82565; 84520; 71275; 36415; Q9967

== ENCOUNTER → 2018-12-26 | Outpatient (CLI) | payer MEDICARE, OTHER ==
--- NOTE | 2018-12-26 10:33 | US ---
EXAMINATION TYPE: US liver DATE OF EXAM: 12/26/2018 COMPARISON: NONE CLINICAL HISTORY: B18.2 Chronic viral hep c. EXAM MEASUREMENTS: Liver Length: 16.8 cm Gallbladder Wall: 0.2 cm CBD: 0.4 cm Right Kidney: 10.1 x 5.0 x 5.8 cm Pancreas: obscured by overlying midline bowel gas Liver: dilated portal vein at 1.7cm Gallbladder: wnl Evidence for sonographic Seo's sign: no CBD: wnl Right Kidney: lobulated contour, multiple echogenic foci with largest measuring 0.5cm, 1.9 x 1.7 x 1 .6cm hypoechoic area mid pole IMPRESSION: 1. Solid lesion mid pole left kidney to exclude. Consider CT correlation. 2. Multiple nonobstructing calculi.
[2018-12-26 11:31] LABS: Hypochromasia Marked; MCH 25.3 pg (25.0-35.0); MCHC 31.5 g/dL (31.0-37.0); MCV 80.3 fL (80.0-100.0); Mean Platelet Volume 7.7; Platelet Count 208 k/uL (150-450); RBC 4.36 m/uL (4.30-5.90); RDW 15.9 % (11.5-15.5); WBC 4.2 k/uL (3.8-10.6)
[2018-12-26 11:59] LABS: Albumin 4.3 g/dL (3.5-5.0); Bilirubin, Delta 0.2 mg/dL (0.0-0.2); Bilirubin,Unconjugated 0.5 mg/dL (0.0-1.1); Total Bilirubin 0.7 mg/dL (0.2-1.3); Total Protein 7.3 g/dL (6.3-8.2)
[2018-12-29 14:49] LABS: HCV Quant Log 4.85 (<1.08)
== END | disposition home or self-care (01) ==
LOC: RADUSWWP 09:28
DX: K80.50 Calculus of bile duct without cholangitis or cholecystitis without obstruction (principal); B18.2 Chronic viral hepatitis C
CPT/HCPCS: 76705; 80076; 85027; 85610; 87522; 87902

== ENCOUNTER → 2019-01-02 | Outpatient (CLI) | payer MEDICARE ==
[2019-01-02 10:51] LABS: Blood Urea Nitrogen 25 mg/dL (9-20)
--- NOTE | 2019-01-02 14:43 | CT ---
EXAMINATION TYPE: CT abdomen w con DATE OF EXAM: 01/02/2019 COMPARISON: 03/09/2017 CT, 12/26/2018 ultrasound INDICATION: Abn US DLP: 840.8 mGycm, Automated exposure control for dose reduction was used. CONTRAST: 100 mL of Isovue 300. Study performed with Oral Contrast TECHNIQUE: Axial images were obtained from above the diaphragm to the pubic rami in the axial plane a t 5 mm thick sections. Reconstructed images are reviewed on the computer in the coronal plane. FINDINGS: Limited CT sections are obtained the lung bases. The lung bases are clear. There is thickening of t he distal esophagus with a patulous appearance. Surgery appears to be at the gastroesophageal junctio n. Findings appear stable from prior study. Consider follow-up esophagram evaluation. CT ABDOMEN: Liver: There is a 1.3 cm cyst adjacent to the vein within the liver. On the delayed images additiona l couple of punctate cyst may be at the superior right lobe liver. Spleen: Calcified splenic granuloma are present. Pancreas: Normal Adrenal glands: The adrenal glands are normal. Gallbladder: Decompressed. Kidneys: No masses are evident. The left renal abnormality identified by ultrasound is not evident on the CT examination. Monitoring with ultrasound could be performed. No hydronephrosis is present. N o cysts are present. There are several nonobstructing renal stones present bilaterally. The largest at the inferior pole left kidney measuring 0.5 cm. Delayed images were obtained through the kidneys w hich appear unremarkable. Aorta: Vascular calcification is within the aorta. Inferior vena cava: Normal. Loops of bowel within the abdomen are normal. There are loops of bowel which are incompletely dis tended or lack oral contrast limiting their evaluation. IMPRESSIONS: 1. Small probable hepatic cysts. 2. Multiple bilateral nonobstructing renal stones. The largest at the left inferior pole measuring 0. 5 cm. 3. No discrete renal mass on the left kidney is not identified. Monitoring with ultrasound could be.
== END ==
LOC: RADCTMAIN 10:07
PROVIDERS: ATTEND Family Medicine
DX: N20.0 Calculus of kidney (principal)
CPT/HCPCS: 82565; 84520; 74160; 36415; Q9967

== ENCOUNTER → 2019-07-18 | Outpatient (CLI) | payer MEDICARE ==
--- NOTE | 2019-07-18 08:17 | MR ---
EXAMINATION TYPE: MR knee RT wo con DATE OF EXAM: 07/18/2019 7:45 AM COMPARISON: NONE HISTORY: Rt knee pain TECHNIQUE: Multiplanar, multiecho imaging of the right knee is performed without IV contrast. FINDINGS: There is a small to moderate right knee joint effusion. There is grade IV chondromalacia involving the lateral patellar facet. There is grade I to III chondr omalacia involving the weightbearing surface of the lateral femoral condyle. There is grade I to II c hondromalacia involving the weightbearing surface of the medial femoral condyle. There is grade IV ch ondromalacia involving the left tibial plateau. There is abnormal signal in the posterior horn of the medial meniscus. This communicates with the inf erior articulating surface. I could not exclude an undisplaced tear. The posterior horn of the lateral meniscus is disrupted. I'm uncertain whether this iatrogenic. The a nterior horn is also swollen with abnormal signal. There is a complex tear of the body and anterior h orn. The posterior cruciate ligament is intact. There is myxoid change in the anterior cruciate ligament. There is severe extrusion of the lateral meniscus with bowing of the lateral collateral ligament. The medial collateral ligament has a more normal appearance. The iliotibial band insertional is not incr eased tubercle. The popliteus muscle and tendon appear intact. The quadriceps and biceps tendon are intact. There is mild inflammation in the Hoffa fat space. There are remodeling changes in both the medial and lateral compartments as well as the patellofemora l joint. IMPRESSION: 1. CHANGES OF OSTEOARTHRITIS. 2. CHONDROMALACIA DESCRIBED. 3. QUESTIONABLE UNDISPLACED TEAR OF THE POSTERIOR HORN OF THE MEDIAL MENISCUS. 4. ABNORMAL POSTERIOR HORN OF THE LATERAL MENISCUS AND ANTERIOR HORN. THERE DOES APPEAR TO BE A COMPL EX TEAR OF THE BODY AND ANTERIOR HORN.
== END | disposition home or self-care (01) ==
LOC: RADMRIMAIN 07:11
PROVIDERS: ATTEND Family Medicine
DX: M17.11 Unilateral primary osteoarthritis, right knee (principal); M94.261 Chondromalacia, right knee; R93.7 Abnormal findings on diagnostic imaging of other parts of musculoskeletal system

== ENCOUNTER 2019-10-27 18:03 | Emergency (ER) | payer MEDICARE ==
[2019-10-27 18:29] VITALS: TEMP 97.8
[2019-10-27] MEDS ORDERED: ENALAPRILAT 1.25 MG/ML 1 ML VIAL IVP STA (20:04)
[2019-10-27 20:33] VITALS: RESP 18
--- NOTE | 2019-10-27 20:39 | ED ---
General Adult HPI - General Chief complaint: Recheck/Abnormal Lab/Rx Stated complaint: High blood pressure Time Seen by Provider: 10/27/19 19:57 Source: patient, RN notes reviewed Mode of arrival: ambulatory Limitations: no limitations - History of Present Illness Initial comments: This is a 63-year-old male presents emergency Department chief complaint of hypertension. Patient states his blood pressure has been steadily climbing over the last couple weeks. Patient was seen at PCPs office yesterday and was found to have hypertension 200/100. Patient was advised to increase his lisinopril. Patient states that he did take 2 doses today and it was still elevated. He has no other complaints denies chest pain, shortness breath, headache, dizziness, nausea, vomiting, diarrhea constipation. - Related Data Home Medications Medication Instructions Recorded Confirmed Atenolol 50 mg PO DAILY 09/17/16 10/02/17 Diazepam 10 mg PO BID PRN 09/17/16 10/02/17 oxyCODONE HCL [oxyCODONE HCL (IR)] 30 mg PO 5XD 09/17/16 10/02/17 Amoxicillin/Potassium Clav 1 tab PO Q12HR 10/02/17 10/02/17 [Augmentin 875-125 Tablet] Dextroamphetamine/Amphetamine 30 mg PO DAILY 10/02/17 10/02/17 [Adderall] Previous Rx's Medication Instructions Recorded predniSONE 50 mg PO DAILY #5 tab 10/02/17 Dexamethasone 0.75 mg PO DIRECTED #12 tablet 12/22/17 predniSONE 50 mg PO DAILY #5 tab 12/29/17 Allergies Allergy/AdvReac Type Severity Reaction Status Date / Time No Known Allergies Allergy Verified 02/16/18 20:30 Review of Systems ROS Statement: Those systems with pertinent positive or pertinent negative responses have been documented in the HPI. ROS Other: All systems not noted in ROS Statement are negative. Past Medical History Past Medical History: Asthma, GERD/Reflux, Hypertension, Liver Disease Additional Past Medical History / Comment(s): Pt states currently being worked up for possible narcolepsy, hepatitis C, back pain/bulging discs/numbness down R leg at tiems, gastric ulcer. History of Any Multi-Drug Resistant Organisms: None Reported Past Surgical History: Back Surgery, Bariatric Surgery, Heart Catheterization, Orthopedic Surgery Additional Past Surgical History / Comment(s): gastric bypass, R rotator cuff repair, R knee arthroscopy, R carpal tunnel release, cardiac cath-normal. Past Anesthesia/Blood Transfusion Reactions: No Reported Reaction Past Psychological History: Anxiety Smoking Status: Former smoker Past Alcohol Use History: None Reported Past Drug Use History: None Reported - Past Family History Father Family Medical History: Hypertension Additional Family Medical History / Comment(s): ETOH abuse Mother Family Medical History: Dementia General Exam Limitations: no limitations General appearance: alert, in no apparent distress Head exam: Present: atraumatic, normocephalic, normal inspection ENT exam: Present: normal exam, normal oropharynx, mucous membranes moist Neck exam: Present: normal inspection, full ROM. Absent: tenderness, meningismus, lymphadenopathy Respiratory exam: Present: normal lung sounds bilaterally. Absent: respiratory distress, wheezes, rales, rhonchi, stridor Cardiovascular Exam: Present: regular rate, normal rhythm, normal heart sounds. Absent: systolic murmur, diastolic murmur, rubs, gallop, clicks Extremities exam: Present: other (Pulses are equal in all extremities.) Neurological exam: Present: alert, oriented X3, CN II-XII intact, reflexes normal. Absent: motor sensory deficit Skin exam: Present: warm, dry, intact, normal color. Absent: rash Course Vital Signs 10/27/19 10/27/19 10/27/19 18:26 20:32 21:00 Temperature 97.8 F Pulse Rate 66 67 61 Respiratory 19 18 18 Rate Blood Pressure 179/89 193/105 183/104 O2 Sat by Pulse 97 98 96 Oximetry Medical Decision Making - Medical Decision Making 63-year-old male presented for hypertension. This has been increasing last few weeks. Patient's blood pressure yesterday at PCPs office 200/100. Patient needs his blood pressure medication adjusted. He is advised take 20 mg of lisinopril in the morning and to reevaluate his blood pressure. If persistently elevated he has taken additional 10 mg as directed by PCP. Patient will follow-up for recheck and return for any worsening symptoms. Patient has no complaints of chest pain, shortness breath, headache, dizziness, blurred vision, nausea vomiting no abdominal pain no back pain. - Lab Data Result diagrams: 10/27/19 20:32 10/27/19 20:32 Lab Results 10/27/19 10/27/19 Range/Units 20:32 20:32 WBC 5.1 (3.8-10.6) k/uL RBC 4.54 (4.30-5.90) m/uL Hgb 11.2 L (13.0-17.5) gm/dL Hct 36.1 L (39.0-53.0) % MCV 79.4 L (80.0-100.0) fL MCH 24.7 L (25.0-35.0) pg MCHC 31.1 (31.0-37.0) g/dL RDW 17.1 H (11.5-15.5) % Plt Count 225 (150-450) k/uL Neutrophils % 64 % Lymphocytes % 24 % Monocytes % 4 % Eosinophils % 5 % Basophils % 1 % Neutrophils # 3.2 (1.3-7.7) k/uL Lymphocytes # 1.2 (1.0-4.8) k/uL Monocytes # 0.2 (0-1.0) k/uL Eosinophils # 0.3 (0-0.7) k/uL Basophils # 0.1 (0-0.2) k/uL Hypochromasia Slight Anisocytosis Slight Microcytosis Slight Sodium 138 (137-145) mmol/L Potassium 3.5 (3.5-5.1) mmol/L Chloride 100 (98-107) mmol/L Carbon Dioxide 31 H (22-30) mmol/L Anion Gap 7 mmol/L BUN 12 (9-20) mg/dL Creatinine 0.92 (0.66-1.25) mg/dL Est GFR (CKD-EPI)AfAm >90 (>60 ml/min/1.73 sqM) Est GFR (CKD-EPI)NonAf 87 (>60 ml/min/1.73 sqM) Glucose 98 (74-99) mg/dL Calcium 9.0 (8.4-10.2) mg/dL Total Bilirubin 0.5 (0.2-1.3) mg/dL AST 33 (17-59) U/L ALT 16 (4-49) U/L Alkaline Phosphatase 78 (38-126) U/L Total Protein 7.1 (6.3-8.2) g/dL Albumin 4.1 (3.5-5.0) g/dL Disposition Clinical Impression: Hypertension Disposition: HOME SELF-CARE Condition: Stable Additional Instructions: Please return to the Emergency Department if symptoms worsen or any other concerns. Is patient prescribed a controlled substance at d/c from ED?: No Referrals: Farrukh Rosenbaum MD [Primary Care Provider] - 1-2 days Time of Disposition: 21:50
[2019-10-27 20:46] LABS: Anisocytosis Slight; Basophils # (A) 0.1 k/uL (0-0.2); Basophils % (A) 1 %; Eosinophils # (A) 0.3 k/uL (0-0.7); Eosinophils % (A) 5 %; HCT 36.1 % (39.0-53.0); HGB 11.2 gm/dL (13.0-17.5); Hypochromasia Slight; Lymphocytes # (A) 1.2 k/uL (1.0-4.8); Lymphocytes % (A) 24 %; MCH 24.7 pg (25.0-35.0); MCHC 31.1 g/dL (31.0-37.0); MCV 79.4 fL (80.0-100.0); Mean Platelet Volume 8.5; Microcytosis Slight; Monocytes # (A) 0.2 k/uL (0-1.0); Monocytes % (A) 4 %; Neutrophils # (A) 3.2 k/uL (1.3-7.7); Neutrophils % (A) 64 %; Platelet Count 225 k/uL (150-450); RBC 4.54 m/uL (4.30-5.90); RDW 17.1 % (11.5-15.5); WBC 5.1 k/uL (3.8-10.6)
[2019-10-27 20:54] LABS: ALT 16 U/L (4-49); AST 33 U/L (17-59); African American GFR (CKD) >90 (>60 ml/min/1.73 sqM); Albumin 4.1 g/dL (3.5-5.0); Alkaline Phosphatase 78 U/L (38-126); Anion Gap 7 mmol/L; Blood Urea Nitrogen 12 mg/dL (9-20); Carbon Dioxide 31 mmol/L (22-30); Chloride 100 mmol/L (98-107); Glucose 98 mg/dL (74-99); Non-African American GFR(CKD) 87 (>60 ml/min/1.73 sqM); Potassium 3.5 mmol/L (3.5-5.1); Sodium 138 mmol/L (137-145); Total Bilirubin 0.5 mg/dL (0.2-1.3); Total Protein 7.1 g/dL (6.3-8.2)
[2019-10-27] MEDS ORDERED: hydrALAZINE HCL 20 MG/ML 1 ML VIAL IVP STA (21:07)
[2019-10-27] MEDS ORDERED: LISINOPRIL 10 MG TAB PO STA (21:47)
[2019-10-27 23:24] VITALS: BP 177/98; PULSE 66
== END 2019-10-27 21:50 | disposition home or self-care (01) ==
LOC: EC 18:03
DX: I10 Essential (primary) hypertension (principal); Z95.818 Presence of other cardiac implants and grafts; Z87.891 Personal history of nicotine dependence; Z79.891 Long term (current) use of opiate analgesic; Z79.899 Other long term (current) drug therapy
CPT/HCPCS: 36415; 80053; 85025; 99283; 96374; 96375; J0360

== ENCOUNTER → 2019-11-30 | Outpatient (CLI) | payer MEDICARE | END | disposition home or self-care (01) | DX: I71.2 Thoracic aortic aneurysm, without rupture (principal) | CPT/HCPCS: 82565; 84520; 71275; 36415; Q9967 ==

== ENCOUNTER 2020-08-01 07:17 | Day surgery (SDC) | payer MEDICARE ==
[~2020-08-01 07:17] MED LIST: LIDOCAINE 1% (10MG/ML) FOR IV START INTRADERMA PRN
[2020-08-01 07:54] VITALS: RESP 16; TEMP 98
[2020-08-01] MEDS: LACTATED RINGERS 1,000 ML IV SCH ×2 (07:56→08:16)
[2020-08-01] MEDS ORDERED: PROPOFOL 10 MG/ML 20 ML VIAL IV ONE (08:18)
[2020-08-01] MEDS ORDERED: LIDOCAINE 1% INJ 10MG/ML (20 ML MDV) ONE (08:18)
--- NOTE | 2020-08-01 08:41 | P.PCN ---
Date of Procedure: 08/01/20 Description of Procedure: BRIEF HISTORY: Patient is a 64-year-old male presenting for outpatient esophagogastroduodenoscopy for evaluation of GERD. The patient reports a history of Gonzalez-en-Y gastric bypass surgery. He denies any abdominal pain, but does report symptoms of morning nausea. He also reports iron deficiency. PROCEDURE PERFORMED: Esophagogastroduodenoscopy with biopsy. PREOPERATIVE DIAGNOSIS: GERD, iron deficiency. ESTIMATED BLOOD LOSS: Minimal. IV sedation per anesthesia. PROCEDURE: After informed consent was obtained, the patient was brought into the endoscopy unit. IV sedation was administered by Anesthesia under continuous monitoring. Initially the Olympus GIF-190 video endoscope was inserted into the mouth. Esophagus intubated without any difficulty. It was gradually advanced into the stomach and small bowel. Both limbs of the Gonzalez-en-Y appeared normal with biopsies of the jejunum taken. The scope was then withdrawn to the anastomotic site which was intact. A small gastric remnant was seen and biopsies were taken. The scope was then withdrawn to the GE junction was located at 39 cm from the incisors, with biopsies taken. A 2 cm hiatal hernia was noted. The esophagus appeared normal, with some mild erythema in the distal esophagus. There were no erosions or ulcerations seen and the patient tolerated the procedure well. IMPRESSION: 1. Small hiatal hernia. 2. LA grade a distal esophagitis. 3. Gonzalez-en-Y gastric bypass. 4. Biopsies of the jejunum, GE junction and gastric remnant. RECOMMENDATIONS: The findings of this examination were discussed with the patient and his family. Okay to resume diet. Okay to resume medications. Await pathology from biopsies.
[2020-08-01 08:49] VITALS: BP 111/71; PULSE 62
== END 2020-08-01 09:26 | disposition home or self-care (01) ==
LOC: ORWHC2ENDO 07:17
PROVIDERS: ATTEND Internal Medicine
DX: K21.00 Gastro-esophageal reflux disease with esophagitis, without bleeding (principal); K44.9 Diaphragmatic hernia without obstruction or gangrene; D50.9 Iron deficiency anemia, unspecified; I10 Essential (primary) hypertension; I73.9 Peripheral vascular disease, unspecified; J45.909 Unspecified asthma, uncomplicated; Z98.84 Bariatric surgery status; Z79.899 Other long term (current) drug therapy; Z87.891 Personal history of nicotine dependence
CPT/HCPCS: 88305; 43239; J2001; J2704

== ENCOUNTER 2020-09-04 20:39 | Emergency (ER) | payer MEDICARE ==
[2020-09-04 20:49] VITALS: TEMP 98
[2020-09-04] MEDS ORDERED: FAMOTIDINE 20 MG/2 ML VIAL IV STA (20:54)
[2020-09-04] MEDS ORDERED: diphenhydrAMINE 50 MG/ML 1 ML VIAL IVP STA (20:54)
[2020-09-04] MEDS ORDERED: methylPREDNISolone SOD SUCCI 125 MG/2 ML VIAL IV STA (20:54)
--- NOTE | 2020-09-04 21:08 | ED ---
General Adult HPI - General Chief complaint: Allergic Reaction Stated complaint: Hives, Throat Swelling Time Seen by Provider: 09/04/20 20:51 Source: patient, RN notes reviewed, old records reviewed Mode of arrival: ambulatory Limitations: no limitations - History of Present Illness Initial comments: 64-year-old male presenting for suspected ALLERGIC reaction. Patient developed generalized raised erythematous rash throughout his torso and upper extremities as well as troponin lip swelling approximate 15-20 minutes after eating strawberries. He's had no previous reaction to strawberries that he knows of. He is on antihypertensive medication including lisinopril. He denies difficulty breathing. He feels some swelling in his tongue and lips. No vomiting. No rash to the lower extremities. - Related Data Home Medications Medication Instructions Recorded Confirmed Diazepam 10 mg PO BID PRN 09/17/16 08/01/20 atenoloL [Atenolol] 50 mg PO QAM 09/17/16 08/01/20 Dextroamphetamine/Amphetamine 30 mg PO DAILY 10/02/17 08/01/20 [Adderall] Albuterol Sulfate [Proair Hfa] 1 puff INHALATION DIRECTED PRN 07/28/20 08/01/20 Ferrous Sulfate [Iron (65 MG 1 tab PO DAILY 07/28/20 08/01/20 Elemental)] Hydrochlorothiazide 12.5 mg PO QAM 07/28/20 08/01/20 [hydroCHLOROthiazide] lisinopriL 40 mg PO QAM 07/28/20 08/01/20 Previous Rx's Medication Instructions Recorded Famotidine [Pepcid] 20 mg PO DAILY #7 tablet 09/04/20 diphenhydrAMINE [Benadryl] 25 mg PO TID PRN #21 capsule 09/04/20 predniSONE 50 mg PO DAILY #5 tab 09/04/20 Allergies Allergy/AdvReac Type Severity Reaction Status Date / Time No Known Allergies Allergy Verified 09/04/20 20:48 Review of Systems ROS Statement: Those systems with pertinent positive or pertinent negative responses have been documented in the HPI. ROS Other: All systems not noted in ROS Statement are negative. Past Medical History Past Medical History: Asthma, Hypertension, Liver Disease Additional Past Medical History / Comment(s): Hepatitis C. Back pain/bulging discs/numbness down R leg. GASTRIC ULCER History of Any Multi-Drug Resistant Organisms: None Reported Past Surgical History: Back Surgery, Bariatric Surgery, Heart Catheterization, Orthopedic Surgery Additional Past Surgical History / Comment(s): Gastric bypass. R rotator cuff repair. R knee arthroscopy. R carpal tunnel release. Cardiac cath-normal. Past Anesthesia/Blood Transfusion Reactions: No Reported Reaction, Motion Sickness Past Psychological History: Anxiety Smoking Status: Former smoker Past Alcohol Use History: None Reported Past Drug Use History: None Reported - Past Family History Father Family Medical History: Hypertension Additional Family Medical History / Comment(s): ETOH abuse Mother Family Medical History: Dementia General Exam Limitations: no limitations General appearance: alert, in no apparent distress Head exam: Present: atraumatic, normocephalic Eye exam: Present: other (Bilateral upper lid edema) ENT exam: Absent: normal oropharynx (Soft tissue swelling posterior oropharynx, no uvular swelling, no stridor) Neck exam: Present: normal inspection. Absent: tenderness Respiratory exam: Present: normal lung sounds bilaterally. Absent: respiratory distress, wheezes, rhonchi, stridor Cardiovascular Exam: Present: regular rate, normal rhythm GI/Abdominal exam: Present: soft. Absent: distended, tenderness, guarding Extremities exam: Present: normal inspection, normal capillary refill. Absent: pedal edema Neurological exam: Present: alert Psychiatric exam: Present: normal affect, normal mood Skin exam: Present: warm, urticaria (Bilateral upper extremities, torso) Course Vital Signs 09/04/20 09/04/20 20:44 21:43 Temperature 98 F Pulse Rate 79 Respiratory 20 18 Rate Blood Pressure 140/95 146/90 O2 Sat by Pulse 95 98 Oximetry - Reevaluation(s) Reevaluation #1: 09/04/20 21:55 Patient reevaluated, resting, fluid, stable vitals, rash has improved. Medical Decision Making - Medical Decision Making 64-year-old male presenting with ALLERGIC reaction. Patient has some minimal tongue and lip swelling. No stridor. No wheezing. No vomiting. He has diffuse urticarial rash. Patient is given Benadryl, Pepcid, Solu-Medrol. His rash improved. His tongue or lip swelling improved. He is monitored for several hours in the emergency department without any deterioration only improvement in his symptoms. Is prescribed Benadryl, Pepcid, and steroids. He is given ALLERGY follow-up as he's had recurrent episodes similar to this in the past multiple different foods. Disposition Clinical Impression: Food allergy, Angioedema, Urticaria Disposition: HOME SELF-CARE Condition: Good Instructions (If sedation given, give patient instructions): Food Allergy (ED), Anaphylaxis (ED) Prescriptions: diphenhydrAMINE [Benadryl] 25 mg PO TID PRN #21 capsule PRN Reason: Allergic Reaction Famotidine [Pepcid] 20 mg PO DAILY #7 tablet predniSONE 50 mg PO DAILY #5 tab Is patient prescribed a controlled substance at d/c from ED?: No Referrals: Farrukh Rosenbaum MD [Primary Care Provider] - 1-2 days Servando Garza MD [STAFF PHYSICIAN] - 1-2 days Time of Disposition: 22:15
[2020-09-04 21:47] VITALS: RESP 18
[2020-09-04 22:38] VITALS: BP 143/99; PULSE 82
== END 2020-09-04 22:38 | disposition home or self-care (01) ==
LOC: EC 20:39
DX: T78.3XXA Angioneurotic edema, initial encounter (principal); T78.1XXA Other adverse food reactions, not elsewhere classified, initial encounter; I10 Essential (primary) hypertension; J45.909 Unspecified asthma, uncomplicated; F41.9 Anxiety disorder, unspecified; Z79.899 Other long term (current) drug therapy; Z87.891 Personal history of nicotine dependence
CPT/HCPCS: 99283; 96374; 96375 ×2; J1200; J2930

== ENCOUNTER → 2020-10-04 | Outpatient (CLI) | payer MEDICARE ==
[2020-10-04 12:20] LABS: Anisocytosis Slight; HCT 45.2 % (39.0-53.0); HGB 15.2 gm/dL (13.0-17.5); MCH 30.6 pg (25.0-35.0); MCHC 33.7 g/dL (31.0-37.0); MCV 90.9 fL (80.0-100.0); Mean Platelet Volume 8.4; Platelet Count 226 k/uL (150-450); RBC 4.97 m/uL (4.30-5.90); RDW 16.7 % (11.5-15.5); WBC 7.5 k/uL (3.8-10.6)
[2020-10-04 17:56] LABS: INR 1.1 (0.90-1.11); Partial Thromboplastin Time 36.3 sec (23.5-31.0); Prothrombin Time 11.8 sec (9.9-11.9)
[2020-10-04 21:02] LABS: % Iron Saturation 36.24 (15.00-50.00); ALT 17 U/L (10-49); AST 30 U/L (14-35); African American GFR (CKD) 72.6 (60.0-200.0); Alkaline Phosphatase 85 U/L (41-126); BUN/Creat Ratio 21.67 Ratio (12.00-20.00); Calcium 9.9 mg/dL (8.7-10.3); Chloride 105 mmol/L (96-109); Chol/HDL Ratio 3.13; Cholesterol 150 mg/dL (0-200); Glucose 97 mg/dL (70-110); Iron 129 ug/dL (65-175); LDL Cholesterol,Calculated 75.4 mg/dL (0.0-131.0); Magnesium 2.2 mg/dL (1.5-2.4); Non-African American GFR(CKD) 62.6 (60.0-200.0); Phosphorus 2.9 mg/dL (2.4-5.1); Potassium 4.7 mmol/L (3.5-5.5); Sodium 142 mmol/L (135-145); Total Bilirubin 0.4 mg/dL (0.3-1.2); Total Iron Binding Capacity 356 ug/dL (228-460); Total Protein 6.6 g/dL (6.2-8.2)
[2020-10-04 21:16] LABS: Ferritin 18.9 ng/mL (22.0-322.0); Folate, Serum >24.0 ng/mL
[2020-10-05 14:30] LABS: Zinc, Serum 86 ug/dL (60-130)
[2020-10-06 07:31] LABS: Vitamin A 61 ug/dL (38-106)
== END | disposition home or self-care (01) ==
LOC: LABWHC1 11:09
PROVIDERS: ATTEND Surgery Plastic and Reconstructive Surgery
DX: E55.9 Vitamin D deficiency, unspecified (principal); E21.1 Secondary hyperparathyroidism, not elsewhere classified; E66.01 Morbid (severe) obesity due to excess calories; D50.8 Other iron deficiency anemias; K90.89 Other intestinal malabsorption; K50.90 Crohn's disease, unspecified, without complications; K74.1 Hepatic sclerosis; N19 Unspecified kidney failure
CPT/HCPCS: 36415; 80053; 80061; 82306; 82525; 82607; 82728; 82746; 83036; 83540; 83550; 83735; 83970; 84100; 84134; 84255; 84425; 84443; 84590; 84630; 85027; 85610; 85730

== ENCOUNTER → 2020-10-26 | Outpatient (CLI) | payer MEDICARE ==
--- NOTE | 2020-10-26 15:25 | P.PN ---
Subjective Progress Note Date: 10/26/20 Patient left without being seen. Objective - Vital Signs Vital signs: Vital Signs Temp 97.7 F 10/26/20 13:11 Pulse 60 10/26/20 13:11 Resp 18 10/26/20 13:11 BP 137/80 10/26/20 13:11 Pulse Ox Intake & Output 10/25/20 10/26/20 10/26/20 18:59 06:59 18:59 Weight 75.296 kg
== END | disposition home or self-care (01) ==
DX: Z53.9 Procedure and treatment not carried out, unspecified reason (principal)
CPT/HCPCS: 99211

== ENCOUNTER → 2020-11-02 | Outpatient (CLI) | payer MEDICARE ==
--- NOTE | 2020-11-02 15:44 | P.PN ---
Progress Note - Text Progress Note Date: 11/02/20 Patient left without being seen.
== END | disposition home or self-care (01) ==
LOC: BARWHC3 13:59
PROVIDERS: ATTEND Surgery Plastic and Reconstructive Surgery
DX: Z53.9 Procedure and treatment not carried out, unspecified reason (principal)

== ENCOUNTER → 2020-12-23 | Outpatient (CLI) | payer MEDICARE ==
[2020-12-23 20:46] LABS: Non-African American GFR(CKD) 47.5 (60.0-200.0)
== END | disposition home or self-care (01) ==
LOC: LABWHC1 10:00
PROVIDERS: ATTEND Surgery
DX: I71.2 Thoracic aortic aneurysm, without rupture (principal)
CPT/HCPCS: 36415; 82565; 84520

== ENCOUNTER → 2021-01-02 | Outpatient (CLI) | payer MEDICARE ==
--- NOTE | 2021-01-03 05:46 | CT ---
EXAMINATION TYPE: CT chest wo con DATE OF EXAM: 01/02/2021 COMPARISON: CTA chest November 30, 2019 and older CTs HISTORY: Thoracic aortic aneurysm without rupture. CT DLP: 464 mGycm. Automated Exposure Control for Dose Reduction was Utilized. TECHNIQUE: CT scan of the thorax is performed without IV contrast. FINDINGS: LUNGS: Mild underlying emphysematous change with mild to moderate right greater than left bibasilar l inear scarring is redemonstrated. No suspicious focal consolidation or groundglass opacity currently. No pleural effusion or pneumothorax is seen bilaterally. No concerning nodules or masses. MEDIASTINUM: Lack of IV contrast is noted to limit evaluation for mediastinal and especially hilar ad enopathy. There are no definitive new greater than 1 cm hilar or mediastinal lymph nodes. No cardio megaly or pericardial effusion is seen. Coronary artery calcification is redemonstrated which is note d marker for underlying coronary artery disease. Persistent enlarged main pulmonary artery at 3.7 cm axial image 29, CT findings consistent with underlying pulmonary artery hypertension. Adjacent ascend ing aorta measures up to 4.1 cm in diameter coronal image 42. No significant change from prior studie s. OTHER: Partial visualization of bilateral nonobstructing renal calculi. Surgical change at gastroesop hageal junction is redemonstrated. Slight scoliotic curvature with multilevel spurring in the spine. IMPRESSION: Stable 4.1 cm ascending aortic aneurysm.
== END | disposition home or self-care (01) ==
LOC: RADCTMAIN 17:47
PROVIDERS: ATTEND Surgery
DX: I71.2 Thoracic aortic aneurysm, without rupture (principal)
CPT/HCPCS: 71250

== ENCOUNTER → 2021-06-26 | Outpatient (CLI) | payer MEDICARE ==
--- NOTE | 2021-06-26 13:09 | US ---
EXAMINATION TYPE: US scrotum with doppler. Grayscale and color Doppler Duplex imaging performed of estefany bernal scrotum. DATE OF EXAM: 06/26/2021 COMPARISON: NONE CLINICAL HISTORY: N50.89 disorders of the male genital organs. Pt states left testicle swelling x 2 months, denies pain EXAM MEASUREMENTS: TESTICLES: Right Testicle: 3.7 x 2.1 x 2.9 cm Left Testicle: 3.5 x 2.6 x 2.8 cm EPIDIDYMIS HEAD: Right Epididymis: 1.0 cm Left Epididymis: 1.1 cm Doppler performed to assess for testicular vascularity; bilateral color flow and waveforms are seen. Presence of hydroceles: Small amount of septated fluid superior to right testicle, large complex/sep tated fluid collection surrounding left testicle Presence of varicoceles: No Testicular echotexture is homogenous and symmetric IMPRESSION: Hydroceles are present bilaterally, larger on the left with septations, some internal glenn ris
== END | disposition home or self-care (01) ==
LOC: RADUSWWP 12:33
PROVIDERS: ATTEND Family Medicine
DX: N43.3 Hydrocele, unspecified (principal)
CPT/HCPCS: 76870; 93975

== ENCOUNTER 2021-07-13 07:16 | Day surgery (SDC) | payer MEDICARE ==
[~2021-07-13 07:16] MED LIST changes: +LACTATED RINGERS 1,000 ML IV SCH
--- NOTE | 2021-07-13 07:37 | P.GSHP ---
History of Present Illness H&P Date: 07/13/21 CHIEF COMPLAINT: Esophageal stricture HISTORY OF PRESENT ILLNESS: The patient is a 65-year-old male who presents reports dysphagia. Upper endoscopy was offered for further evaluation and management. PAST MEDICAL HISTORY: Please see list. PAST SURGICAL HISTORY: Please see list. MEDICATIONS: Please see list. ALLERGIES: Please see list. SOCIAL HISTORY: No illicit drug use FAMILY HISTORY: No reports of Crohn disease or ulcerative colitis. REVIEW OF ORGAN SYSTEMS: CONSTITUTIONAL: No reports of fevers or chills. GI: Denies any blood in stools or constipation. PHYSICAL EXAM: VITAL SIGNS: Stable GENERAL: Well-developed and pleasant in no acute distress. HEENT: No scleral icterus. Extraocular movements grossly intact. Moist buccal mucosa. NECK: Supple without lymphadenopathy. CHEST: Unlabored respirations. Equal bilateral excursions. CARDIOVASCULAR: Regular rate and rhythm. Distal 2+ pulses. ABDOMEN: Soft, nondistended. MUSCULOSKELETAL: No clubbing, cyanosis, or edema. ASSESSMENT: 1. Esophageal stricture PLAN: 1. Recommend proceeding with an upper endoscopy with rigid dilators. Past Medical History Past Medical History: Asthma, Hypertension, Liver Disease Additional Past Medical History / Comment(s): Hepatitis C. Back pain/bulging discs/numbness down R leg. GASTRIC ULCER History of Any Multi-Drug Resistant Organisms: None Reported Past Surgical History: Back Surgery, Bariatric Surgery, Heart Catheterization, Orthopedic Surgery Additional Past Surgical History / Comment(s): Gastric bypass - 1999. R rotator cuff repair X2. R knee arthroscopy. R carpal tunnel release. Cardiac cath- normal. 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 Smoking Status: Former smoker Past Alcohol Use History: None Reported Additional Past Alcohol Use History / Comment(s): Pt started smoking in 1968 and quit in 1996. Past Drug Use History: None Reported Additional Drug Use History / Comment(s): States occassional marijuana use in the past but none now. - Past Family History Father Family Medical History: Hypertension Additional Family Medical History / Comment(s): ETOH abuse Mother Family Medical History: Dementia Medications and Allergies Home Medications Medication Instructions Recorded Confirmed Type atenoloL [Atenolol] 50 mg PO QAM 09/17/16 07/10/21 History Albuterol Sulfate [Proair Hfa] 1 puff INHALATION DIRECTED PRN 07/28/20 07/10/21 History Ferrous Sulfate [Iron (65 MG 1 tab PO DAILY 07/28/20 07/10/21 History Elemental)] Hydrochlorothiazide 12.5 mg PO QAM 07/28/20 07/10/21 History [hydroCHLOROthiazide] Allergies Allergy/AdvReac Type Severity Reaction Status Date / Time strawberry Allergy Rash/Hives Verified 07/13/21 07:33
[2021-07-13 07:44] VITALS: TEMP 97
[2021-07-13] MEDS ORDERED: PROPOFOL 10 MG/ML 20 ML VIAL IV ONE (08:16)
[2021-07-13] MEDS ORDERED: LIDOCAINE 1% INJ 10MG/ML (20 ML MDV) ONE (08:16)
--- NOTE | 2021-07-13 08:53 | P.PCN ---
Date of Procedure: 07/13/21 Description of Procedure: PREOPERATIVE DIAGNOSIS: Anemia Unintentional weight loss Dysphagia History of gastric bypass POSTOPERATIVE DIAGNOSIS: Upper esophageal stenosis Lower esophageal ulcer Gastric stenosis Severe erosive esophagitis with bleeding OPERATION: 1. Esophagogastrojejunoscopy with rigid dilatation, 57 Fr for dilation of upper esophageal stenosis 2. Esophagogastrojejunoscopy with balloon dilation for gastric stenosis, 20 mm balloon 3. Esophagogastrojejunoscopy with cold forceps biopsies distal esophagus SURGEON: Agnes Cordero MD ANESTHESIA: MAC. INDICATIONS: The patient is a 65-year-old male who presents with dysphagia, nausea and vomiting, unintentional weight loss, anemia. Benefits and risks of the procedure were described. Informed consent was obtained. DESCRIPTION: The patient was brought into the endoscopy suite and laid in the left lateral decubitus position. After a timeout was confirmed, the procedure was initiated. An Olympus gastroscope was passed along the posterior oropharynx down to the distal esophagus where the squamocolumnar junction was demonstrated active bleeding ulceration from severe erosive esophagitis. Stenosis was identified of the upper esophagus. The gastric pouch was entered with stricture identified. Additional findings below. A guidewire was placed through the scope. The scope was removed. A rigid dilator 57-Tanzanian placed for dilation performed for 2 minutes tortuous upper esophageal stenosis. Next, a 20-mm [employer] balloon was deployed for dilation of the gastric stenosis. Finally, cold forceps biopsies were obtained of the distal esophagus for active esophageal ulcerations. The patient tolerated the procedure well. FINDINGS: Esophageal stenosis upper esophagus addressed with rigid dilator, 57-Tanzanian Gastrojejunal stenosis addressed with 20 mm balloon Cold biopsy forceps obtained of the distal esophagus, 35 cm for LA grade C erosive esophagiti with ulceration and bleeding RECOMMENDATIONS: 1. Repeat upper endoscopy one month Plan - Discharge Summary Discharge Rx Participant: No New Discharge Prescriptions: New Sucralfate [Carafate] 1 gm PO BID #60 tablet Omeprazole [PriLOSEC] 40 mg PO DAILY #30 cap Continue atenoloL [Atenolol] 50 mg PO QAM Albuterol Sulfate [Proair Hfa] 1 puff INHALATION DIRECTED PRN PRN Reason: Shortness Of Breath Or Wheezing Hydrochlorothiazide [hydroCHLOROthiazide] 12.5 mg PO QAM Ferrous Sulfate [Iron (65 MG Elemental)] 1 tab PO DAILY Discharge Medication List atenoloL [Atenolol] 50 mg PO QAM 09/17/16 [History] Albuterol Sulfate [Proair Hfa] 1 puff INHALATION DIRECTED PRN 07/28/20 [History] Ferrous Sulfate [Iron (65 MG Elemental)] 1 tab PO DAILY 07/28/20 [History] Hydrochlorothiazide [hydroCHLOROthiazide] 12.5 mg PO QAM 07/28/20 [History] Omeprazole [PriLOSEC] 40 mg PO DAILY #30 cap 07/13/21 [Rx] Sucralfate [Carafate] 1 gm PO BID #60 tablet 07/13/21 [Rx] Follow up Appointment(s)/Referral(s): Agnes Cordero MD [STAFF PHYSICIAN] - 07/18/21 Patient Instructions/Handouts: Esophagitis (ED), Diet for Stomach Ulcers and Gastritis (GEN), Esophageal Dilation (DC) Activity/Diet/Wound Care/Special Instructions: Avoid ibuprofen, Aleve, aspirin, nonsteroidal anti-inflammatories for active esophageal ulcer Discharge Disposition: HOME SELF-CARE
[2021-07-13 09:03] VITALS: BP 109/71; PULSE 55; RESP 16
== END 2021-07-13 09:59 | disposition home or self-care (01) ==
LOC: ORWHC2ENDO 07:16
PROVIDERS: ATTEND Surgery Plastic and Reconstructive Surgery
DX: K22.2 Esophageal obstruction (principal); K20.91 Esophagitis, unspecified with bleeding; K20.0 Eosinophilic esophagitis; K22.11 Ulcer of esophagus with bleeding; D64.9 Anemia, unspecified; J45.909 Unspecified asthma, uncomplicated; I10 Essential (primary) hypertension; B19.20 Unspecified viral hepatitis C without hepatic coma; Z98.890 Other specified postprocedural states; M51.16 Intervertebral disc disorders with radiculopathy, lumbar region; Z87.891 Personal history of nicotine dependence; F41.9 Anxiety disorder, unspecified; Z98.84 Bariatric surgery status; Z97.2 Presence of dental prosthetic device (complete) (partial); Z82.49 Family history of ischemic heart disease and other diseases of the circulatory system; Z81.1 Family history of alcohol abuse and dependence; Z81.8 Family history of other mental and behavioral disorders; Z79.899 Other long term (current) drug therapy; Z91.018 Allergy to other foods
CPT/HCPCS: 88305; 43239; 43248; J2001; J2704; C1726; 43249

== ENCOUNTER → 2021-09-11 | Outpatient (CLI) | payer MEDICARE ==
--- NOTE | 2021-09-11 14:39 | CT ---
EXAMINATION TYPE: CT abdomen pelvis wo con DATE OF EXAM: 09/11/2021 COMPARISON: 01/02/2019 HISTORY: Vomiting with meals, swollen testicle CT DLP: 296.7 mGycm Examination of the solid and hollow viscera is limited given the lack of contrast. FINDINGS: LUNG BASES: No evidence for nodule. No evidence for infiltrate. LIVER/GB: The gallbladder is unremarkable. No space-occupying hepatic lesion. PANCREAS: No pancreatic mass identified. No inflammatory process seen. SPLEEN: No evidence for splenomegaly. No intrasplenic lesions seen. ADRENALS: No adrenal nodules identified. No evidence for thickening. KIDNEYS: There is moderate to severe left-sided hydronephrosis likely secondary to an obstructing rosa m culus proximal left ureter measuring 8.3 mm. There is a hypoattenuating collection lower pole left ki dney which could reflect a urinoma. Lack of contrast limits evaluation. Collection measures 8.6 x 8.2 x 7.2 cm. No internal air to suggest abscess. Nonobstructing calculus overlying the lower pole of th e right kidney. BOWEL: Appendix has a normal appearance. No evidence of bowel obstruction. No inflammatory process. Lymph nodes: No evidence for adenopathy greater than 1 cm. Abdominal aorta: Atheromatous changes seen. No evidence for aneurysm. Genital organs: No significant abnormality. Other: No significant abnormality. IMPRESSION: There is moderate to severe left-sided hydronephrosis likely secondary to an obstructing calculus pro ximal left ureter measuring 8.3 mm. There is a hypoattenuating collection lower pole left kidney whic h could reflect a urinoma. Lack of contrast limits evaluation.
== END | disposition home or self-care (01) ==
LOC: RADCTMAIN 12:35
PROVIDERS: ATTEND Surgery Plastic and Reconstructive Surgery
DX: R11.10 Vomiting, unspecified (principal); N13.2 Hydronephrosis with renal and ureteral calculous obstruction
CPT/HCPCS: 36415; 74176; 82565; 84520

== ENCOUNTER → 2021-10-23 | Outpatient (CLI) | payer MEDICARE ==
[2021-10-23 15:59] LABS: Appearance,Urine Clear (Clear); Bilirubin,Urine Negative (Negative); Blood,Urine Negative (Negative); Color,Urine Light Yellow; Glucose,Urine (UA) Negative (Negative); Ketones,Urine Negative (Negative); Leukocyte Esterase,Urine Negative (Negative); Nitrite,Urine Negative (Negative); PH, Urine 5.5 (5.0-8.0); Protein,Urine Negative (Negative); Specific Gravity,Urine 1.016 (1.001-1.035); Urobilinogen,Urine <2.0 mg/dL (<2.0)
[2021-10-24 00:44] LABS: Anion Gap 11.7 mmol/L (10.00-18.00); Blood Urea Nitrogen 43.5 mg/dL (9.0-27.0); Carbon Dioxide 20.3 mmol/L (20.0-27.5); Potassium 4.7 mmol/L (3.5-5.5)
[2021-10-24 00:45] LABS: African American GFR (CKD) 36.2 (60.0-200.0); BUN/Creat Ratio 20.52 Ratio (12.00-20.00); Calcium 8.9 mg/dL (8.7-10.3); Non-African American GFR(CKD) 31.3 (60.0-200.0)
[2021-10-24 00:52] LABS: Basophils # (A) 0.06 X 10*3/uL (0.00-0.10); Basophils % (A) 0.8 %; Eosinophils # (A) 0.28 X 10*3/uL (0.04-0.35); HCT 39.2 % (39.6-50.0); HGB 12.4 g/dL (13.0-17.0); Immature Grans, Automated 0.3 %; Lymphocytes # (A) 1.24 X 10*3/uL (0.90-5.00); Lymphocytes % (A) 17.5 %; MCH 30.5 pg (27.0-32.0); MCHC 31.6 g/dL (32.0-37.0); MCV 96.3 fL (80.0-97.0); Mean Platelet Volume 11.7 fL (9.5-12.2); Monocytes # (A) 0.47 X 10*3/uL (0.20-1.00); Monocytes % (A) 6.6 %; NRBC Per 100 WBC 0 /100 WBCS (0.0-0.0); Neutrophils % (A) 70.8 %; Platelet Count 217 X 10*3/uL (140-440); RBC 4.07 X 10*6/uL (4.40-5.60); RDW 12.4 % (11.5-14.5); WBC 7.07 X 10*3/uL (4.50-10.00)
== END | disposition home or self-care (01) ==
LOC: LABPAT 14:18
PROVIDERS: ATTEND Urology
DX: Z01.818 Encounter for other preprocedural examination (principal); N20.1 Calculus of ureter
CPT/HCPCS: 80048; 81003; 85025; 87086; 93005

== ENCOUNTER 2021-10-30 06:01 | Day surgery (SDC) | payer MEDICARE ==
[2021-10-26 10:35] VITALS: BMI 23.9
--- NOTE | 2021-10-27 10:27 | P.HPIHPCON ---
History of Present Illness H&P Date: 10/27/21 Chief Complaint: left ureteral stone This is a 65 yo male with hx of 8 mm left proximal stone, Has failed medical expulsive therapy. option of ESWL and ureteroscopy were discussed with him in details. He agreed to proceed with left-sided ureteroscopy. Discussed the risk which includes but not limited to bleeding, infection, injury to the ureter. Discussed also risks of anesthesia. He understood all the risk and agreed to proceed Consent for Procedure: I have explained the operation/procedure to the patient, including the risks, benefits, side effects, alternative therapies (including not receiving the proposed treatment or service), the likelihood of the patient achieving his/her goals, and potential recuperation problems for the procedure/sedation/analgesia, as well as any blood products, if indicated. I also explained to the patient the risks, benefits and side effects of the alternatives, as well as the risks related to not receiving the proposed procedure, care, treatment, or services. Past Medical History Past Medical History: Asthma, Hypertension, Liver Disease Additional Past Medical History / Comment(s): Hepatitis C. Back pain/bulging discs/numbness down R leg. GASTRIC ULCER, KIDNEY STONES History of Any Multi-Drug Resistant Organisms: None Reported Past Surgical History: Back Surgery, Bariatric Surgery, Heart Catheterization, Orthopedic Surgery Additional Past Surgical History / Comment(s): Gastric bypass - 1999. R rotator cuff repair X2. R knee arthroscopy. R carpal tunnel release. Cardiac cath- normal. Past Anesthesia/Blood Transfusion Reactions: No Reported Reaction, Motion Sickness Smoking Status: Former smoker - Past Family History Father Family Medical History: Hypertension Additional Family Medical History / Comment(s): ETOH abuse Mother Family Medical History: Dementia Medications and Allergies Home Medications Medication Instructions Recorded Confirmed Type atenoloL [Atenolol] 50 mg PO QAM 09/17/16 10/26/21 History Albuterol Sulfate [Proair Hfa] 1 puff INHALATION DIRECTED PRN 07/28/20 10/26/21 History Ferrous Sulfate [Iron (65 MG 325 mg PO DAILY 07/28/20 10/26/21 History Elemental)] Hydrochlorothiazide 12.5 mg PO QAM 07/28/20 10/26/21 History [hydroCHLOROthiazide] Multivit,Calc,Min/FA/K1/Lycop 1 each PO DAILY 09/13/21 10/26/21 History [One-A-Day Men's Complete Tab] Multivitamin/Iron/Folic Acid 1 each PO DAILY 09/13/21 10/26/21 History [Centrum Complete Multivit Tab] lisinopriL [Zestril] 40 mg PO DAILY 09/13/21 10/26/21 History Omeprazole [PriLOSEC] 40 mg PO DAILY #90 cap 09/18/21 10/26/21 Rx Allergies Allergy/AdvReac Type Severity Reaction Status Date / Time alcohol Allergy Anaphylaxis Verified 10/26/21 10:23 strawberry Allergy Rash/Hives Verified 09/18/21 11:44 Surgical - Exam - General no distress, moderate pain - Respiratory normal expansion, normal respiratory effort - Abdomen Abdomen: soft, non tender - Psychiatric oriented to time, oriented to person, oriented to place Assessment and Plan Assessment: 65 yo male with history of a 8 mm left-sided ureteral stone -OR for left-sided ureteroscopy holmium laser lithotripsy stone basketing and stent insertion
[~2021-10-30 06:01] MED LIST changes: +CIPROFLOXACIN/DEXTROSE PMX 400 MG in DEXTROSE/WATER 1 200ML.BAG IVPB PRN; +DEXAMETHASONE SOD PHOSPHATE 4 MG/ML 1 ML VIAL IV ONE; -LIDOCAINE 1% (10MG/ML) FOR IV START INTRADERMA PRN; +MIDAZOLAM 2 MG/2 ML VIAL IV PRN; +ONDANSETRON 4 MG/2 ML VIAL IVP ONE
--- NOTE | 2021-10-30 06:48 | XR ---
EXAMINATION TYPE: XR KUB DATE OF EXAM: 10/30/2021 COMPARISON: 03/21/2015 HISTORY: Right lower quadrant pain TECHNIQUE: Single view supine FINDINGS: There is no sign of intestinal obstruction or pneumoperitoneum. Fecal pattern is normal. Th ere is no sign of a mass. There are no pathologic calcifications over the kidneys. There is mild lumb ar dextroscoliosis. IMPRESSION: Nonacute abdomen. No adverse change.
[2021-10-30] MEDS ORDERED: HYDROmorphone 0.5 MG/0.5 ML SYRINGE IVP PRN (07:00)
[2021-10-30] MEDS ORDERED: LIDOCAINE 1% (10MG/ML) FOR IV START INTRADERMA ONE (07:01)
[2021-10-30] MEDS ORDERED: ePHEDrine 50 MG/ML 1 ML VIAL ONE (07:35)
[2021-10-30] MEDS ORDERED: PROPOFOL 10 MG/ML 20 ML VIAL IV ONE (07:35)
[2021-10-30] MEDS ORDERED: LIDOCAINE 1% INJ 10MG/ML (20 ML MDV) ONE (07:35)
[2021-10-30] MEDS ORDERED: fentaNYL (PF) 50 MCG/ML 2 ML AMP ONE (07:35)
[2021-10-30] MEDS ORDERED: IOPAMIDOL-370 50ML BTL MISCELLANE ONE (07:59)
--- NOTE | 2021-10-30 08:43 | P.OP ---
Date of Procedure: 10/30/21 Preoperative Diagnosis: Left ureteral stone Postoperative Diagnosis: Left ureteral stone, ureteral stricture Procedure(s) Performed: Cystoscopy, left retrograde, and stent insertion Implants: 4.5-Montenegrin by 26 cm stent Anesthesia: LIBORIO Surgeon: Isaac Zhao Estimated Blood Loss (ml): 20 Pathology: none sent Condition: stable Disposition: PACU Indications for Procedure: This is a 65 yo male with hx of 8 mm left proximal stone, Has failed medical expulsive therapy. option of ESWL and ureteroscopy were discussed with him in details. He agreed to proceed with left-sided ureteroscopy. Discussed the risk which includes but not limited to bleeding, infection, injury to the ureter. Discussed also risks of anesthesia. He understood all the risk and agreed to proceed Operative Findings: Severe narrowing of the mid ureter, with dilation proximal to that. Severe hydroureteronephrosis Description of Procedure: Patient was brought to the operating room, general anesthesia was induced. He was prepped and draped in sterile fashion and placed in a dorsal lithotomy position. Cystoscopy fitted with a 21-Montenegrin sheath was inserted per urethra, cystoscopy was performed which showed a significantly enlarged median lobe, heavily trabeculated bladder. Attention was then carried to the left ureteral orifice which was intubated with an open-ended catheter, retrograde pyelogram was performed which showed significant pinpoint narrowing of the mid ureter, the narrowing was approximately 4 cm, with severe dilation proximal to that. There was a filling defect at the level of the transition between the narrowed and the dilated ureter, at the level of the stone. Next attempted to pass a sensor wire through the open-ended catheter but resistance was met at the stricture portion of the ureter. At this time I had used a 0.025 Glidewire I was able to navigate that past the stricture and into the kidney. At this time given this finding decision was made to proceed with a stent placement. I attempted to pass a 6- Montenegrin stent over the wire, but resistance was met at the stricture, at this time I switched to a 4.5-Montenegrin stent and I was able to pass the stent past the narrowed portion of this of the ureter and into the collecting system, there was a hydronephrotic drip noticed after stent placement. At this time there was some evidence of prostatic backbleeding, decision was made to place a Wang catheter. The scope was removed and a 18-Montenegrin Wang catheter was placed with return of light pink urine. Patient tolerated the procedure was taken to recovery in stable condition
[2021-10-30 08:47] VITALS: TEMP 96.8
--- NOTE | 2021-10-30 08:48 | FL ---
EXAMINATION TYPE: FL Urography Retrograde DATE OF EXAM: 10/30/2021 HISTORY: Fluoroscopy time 1 minute and 8 seconds of fluoroscopy provided. IMPRESSION: 1. Fluoroscopy time. MTDD
[2021-10-30 08:52] VITALS: RESP 16
[2021-10-30] MEDS ORDERED: HYDROcodone/APAP 5-325MG 1 EACH TAB ONE (09:36)
[2021-10-30] MEDS ORDERED: HYDROcodone/APAP 5-325MG 1 EACH TAB PO ONE (09:38)
[2021-10-30 10:36] VITALS: BP 156/75; PULSE 57
== END 2021-10-30 11:14 | disposition home or self-care (01) ==
LOC: OR 06:01
PROVIDERS: ATTEND Urology
DX: N20.1 Calculus of ureter (principal); N13.5 Crossing vessel and stricture of ureter without hydronephrosis
CPT/HCPCS: 52332; 74420; 74018; C2625; C1769 ×2; C1758; J1100; J2405; J2001; J3010; J0744; J2704; Q9967

== ENCOUNTER 2021-11-27 06:58 | Day surgery (SDC) | payer MEDICARE ==
[2021-11-23 11:26] VITALS: BMI 22.8
--- NOTE | 2021-11-23 14:51 | P.HPIHPCON ---
History of Present Illness H&P Date: 11/23/21 This is a 65 yo male with hx of 8 mm left proximal stone, Has underwent left- sided stented placement in October, a ureteral stricture was encountered at that time, of note only 4.8 Fr stent was able to pass past the stricture. option of repeat ureteroscopy was discussed with him in details. He agreed to proceed with left-sided ureteroscopy. discussed with him if there was a persistent stricture at the left ureter, then the next step would be a PCNL to address his stone. Discussed the risk which includes but not limited to bleeding, infection, injury to the ureter. Discussed also risks of anesthesia. He understood all the risk and agreed to proceed Consent for Procedure: I have explained the operation/procedure to the patient, including the risks, benefits, side effects, alternative therapies (including not receiving the proposed treatment or service), the likelihood of the patient achieving his/her goals, and potential recuperation problems for the procedure/sedation/analgesia, as well as any blood products, if indicated. I also explained to the patient the risks, benefits and side effects of the alternatives, as well as the risks related to not receiving the proposed procedure, care, treatment, or services. Past Medical History Past Medical History: Asthma, Hypertension, Liver Disease Additional Past Medical History / Comment(s): Hepatitis C. Back pain/bulging discs/numbness down R leg. GASTRIC ULCER, KIDNEY STONES History of Any Multi-Drug Resistant Organisms: None Reported Past Surgical History: Back Surgery, Bariatric Surgery, Heart Catheterization, Orthopedic Surgery Additional Past Surgical History / Comment(s): Gastric bypass - 1999. R rotator cuff repair X2. R knee arthroscopy. R carpal tunnel release. SX FOR KIDNEY STONES Past Anesthesia/Blood Transfusion Reactions: No Reported Reaction, Motion Sickness Smoking Status: Former smoker - Past Family History Father Family Medical History: Hypertension Additional Family Medical History / Comment(s): ETOH abuse Mother Family Medical History: Dementia Medications and Allergies Home Medications Medication Instructions Recorded Confirmed Type atenoloL [Atenolol] 50 mg PO QAM 09/17/16 11/23/21 History Albuterol Sulfate [Proair Hfa] 1 puff INHALATION DIRECTED PRN 07/28/20 11/23/21 History Hydrochlorothiazide 12.5 mg PO QAM 07/28/20 11/23/21 History [hydroCHLOROthiazide] Multivit,Calc,Min/FA/K1/Lycop 1 each PO DAILY 09/13/21 11/23/21 History [One-A-Day Men's Complete Tab] lisinopriL [Zestril] 40 mg PO DAILY 09/13/21 11/23/21 History Omeprazole [PriLOSEC] 40 mg PO DAILY #90 cap 09/18/21 11/23/21 Rx Allergies Allergy/AdvReac Type Severity Reaction Status Date / Time alcohol Allergy Anaphylaxis Verified 10/26/21 10:23 strawberry Allergy Rash/Hives Verified 09/18/21 11:44 Surgical - Exam - General no distress, no pain - Eyes normal ocular movement - ENT normal nares, normal mucosa - Respiratory normal expansion, normal respiratory effort - Abdomen Abdomen: soft, non tender Assessment and Plan Assessment: OR for left-sided ureteroscopy with holmium laser lithotripsy, stone basketing, stent exchange versus removal
[~2021-11-27 06:58] MED LIST changes: -CIPROFLOXACIN/DEXTROSE PMX 400 MG in DEXTROSE/WATER 1 200ML.BAG IVPB PRN; -DEXAMETHASONE SOD PHOSPHATE 4 MG/ML 1 ML VIAL IV ONE; +LIDOCAINE 1% (10MG/ML) FOR IV START INTRADERMA PRN; -MIDAZOLAM 2 MG/2 ML VIAL IV PRN
[2021-11-27] MEDS ORDERED: HYDROmorphone 0.5 MG/0.5 ML SYRINGE IVP PRN (07:00)
[2021-11-27] MEDS ORDERED: DEXAMETHASONE SOD PHOSPHATE 4 MG/ML 1 ML VIAL IVP ONE (07:44)
[2021-11-27] MEDS ORDERED: LIDOCAINE 1% INJ 10MG/ML (20 ML MDV) ONE (09:01)
[2021-11-27] MEDS ORDERED: PROPOFOL 10 MG/ML 20 ML VIAL IV ONE (09:01)
[2021-11-27] MEDS ORDERED: ePHEDrine 50 MG/ML 1 ML VIAL ONE (09:01)
[2021-11-27] MEDS ORDERED: fentaNYL (PF) 50 MCG/ML 2 ML AMP ONE (09:01)
[2021-11-27] MEDS ORDERED: SUCCINYLCHOLINE CHLORIDE 100 MG/5 ML SYR IV ONE (09:01)
[2021-11-27] MEDS ORDERED: PHENYLEPHRINE-0.9% NACL SYG 1,000 MCG/10 ML SYRINGE ONE (09:01)
[2021-11-27] MEDS ORDERED: IOPAMIDOL-370 50ML BTL IRRIGATION ONE (09:22)
[2021-11-27 10:21] VITALS: TEMP 96.8
[2021-11-27 10:33] VITALS: RESP 16
[2021-11-27 11:29] VITALS: BP 146/77; PULSE 65
--- NOTE | 2021-11-27 11:33 | FL ---
Fluoroscopy HISTORY: Left ureteral stone 17 seconds fluoroscopy time supplied to the referring clinician. 1 intraoperative C-arm images docum ent the procedure. See dictated report from urology.
--- NOTE | 2021-11-27 12:18 | P.OP ---
Date of Procedure: 11/27/21 Preoperative Diagnosis: Left ureteral stone Postoperative Diagnosis: Left ureteral stone, ureteral mass Procedure(s) Performed: Cystoscopy, left retrograde pyelogram, ureteroscopy, ureteral mass biopsy and stent exchange Implants: 6-Argentine by 26 cm stent Anesthesia: LIBORIO Surgeon: Isaac Zhao Estimated Blood Loss (ml): 10 Pathology: other (Left ureteral mass biopsy) Condition: stable Disposition: PACU Indications for Procedure: This is a 65 yo male with hx of 8 mm left proximal stone, Has underwent left- sided stented placement in October, a ureteral stricture was encountered at that time, of note only 4.8 Fr stent was able to pass past the stricture. option of repeat ureteroscopy was discussed with him in details. He agreed to proceed with left-sided ureteroscopy. discussed with him if there was a persistent stricture at the left ureter, then the next step would be a PCNL to address his stone. Discussed the risk which includes but not limited to bleeding, infection, injury to the ureter. Discussed also risks of anesthesia. He unders tood all the risk and agreed to proceed Operative Findings: Left mid ureteral obstruction, and edematous mass was seen protruding from the obstruction Description of Procedure: Patient was brought to the operating room, general anesthesia was induced. He was prepped and draped in sterile fashion and placed in dorsal lithotomy position. A cystoscopy fitted with a 21-Argentine sheath was inserted per urethra, cystoscopy was performed which showed no abnormality within the bladder. The left ureteral stent was grasped and removed to the meatus. Next a sensor wire was advanced through the stent and the stent was removed with the wire in place. Next a 6 Fr open-ended catheter was passed over the wire, retrograde pyelogram was performed through the catheter which showed persistent narrowing in the mid ureter with proximal dilation. Next a sensor wire was advanced through the catheter and the catheter was removed with the wire in place. Next a semirigid ureteroscope was inserted and advanced up the left ureteral orifice. At this time at the mid ureter the ureter appeared to be completely obstructed. There was a edematous mass protruding from the area of narrowing. Using the biopsy forceps a biopsy of the mass was obtained, multiple biopsies were obtained. I attempted to advance the ureteroscope past the narrowing but was unsuccessful, a then tried with a flexible ureteroscope to pass past the narrowing but was still unsuccessful. Next a balloon dilator was passed over the wire, attempted to dilate narrowing was unsuccessful as there continued to be waist at the balloon. At this time the balloon dilator was removed and a ureteral stent was passed over the wire, the proximal curl was visualized on fluoroscopy and the distal curl was visualized using cystoscope. The bladder was emptied at the end of the case. Patient thought the procedure was taken to recovery in stable condition. At this time we'll await pathology results and obtain a CT abdomen and pelvis to further evaluate the ureteral obstruction.
== END 2021-11-27 11:46 | disposition home or self-care (01) ==
LOC: OR 06:58
PROVIDERS: ATTEND Urology
DX: N20.1 Calculus of ureter (principal); I10 Essential (primary) hypertension; E78.5 Hyperlipidemia, unspecified; Z87.891 Personal history of nicotine dependence; J45.909 Unspecified asthma, uncomplicated; J44.9 Chronic obstructive pulmonary disease, unspecified; I25.10 Atherosclerotic heart disease of native coronary artery without angina pectoris; M19.90 Unspecified osteoarthritis, unspecified site; B19.20 Unspecified viral hepatitis C without hepatic coma; K21.9 Gastro-esophageal reflux disease without esophagitis
CPT/HCPCS: 50955; 88305; 74420; C2625; C1758; C1769; J1100; J0690; J2405; J2001; J3010; J2370; J0330; J2704; Q9967

== ENCOUNTER → 2021-12-12 | Outpatient (CLI) | payer MEDICARE | END | disposition home or self-care (01) | LOC: RADCTMAIN 14:01 | PROVIDERS: ATTEND Urology | DX: N13.30 Unspecified hydronephrosis (principal) | CPT/HCPCS: 82565; 84520 ==

== ENCOUNTER → 2021-12-27 | Outpatient (CLI) | payer MEDICARE ==
--- NOTE | 2021-12-27 21:14 | CT ---
EXAMINATION TYPE: CT abdomen pelvis wo con DATE OF EXAM: 12/27/2021 COMPARISON: CT dated 09/11/2021 HISTORY: left flank pain CT DLP: 491 mGycm Automated exposure control for dose reduction was used. TECHNIQUE: Helical acquisition of images was performed from the lung bases through the pelvis. FINDINGS: LUNG BASES: COPD changes. LIVER/GB: Scattered hepatic hypodensities, stable compared to the previous and likely representing he patic cysts. Grossly unremarkable gallbladder. PANCREAS: Grossly unremarkable. SPLEEN: Slight anterior position of the spleen, unchanged. ADRENALS: No significant abnormality is seen. KIDNEYS: Interval progression of the previously seen large lobulated cyst/cystic structure at the low er pole of the left kidney measuring up to 11.8 cm compared to 7.2 cm previously. Suspected curviline ar hyperdensity seen at the inferior aspect of the cyst which could represent blood however solid com ponent cannot be excluded. Interval insertion of a double-J left ureteric stent, apparently in adequa te position. Few tiny millimetric stone fragments seen in the upper left ureter around the stent tod uring up to 4 mm. Few millimetric calculi are seen in the right kidney measuring up to 2 mm with few scattered right renal cysts. Suspected millimetric hemorrhagic cyst at the midpole of the right kidne y. No hydronephrosis bilaterally. No right-sided hydroureter. Thickened wall of the urinary bladder, please correlate with urinalysis results. FREE AIR: No free air is visualized RETROPERITONEAL ADENOPATHY: None visualized REPRODUCTIVE ORGANS: Prominent prostate, please correlate with PSA level. PELVIC ADENOPATHY: None visualized. OSSEOUS STRUCTURES: Severe degenerative changes at L4-5 level with fused L2, L3 and L4 vertebral bod ies. Degenerative changes of the hip joints. BOWEL: Hiatal hernia with previous gastric surgery. No evidence of bowel obstruction. Scattered hypo densities throughout the abdomen, possibly within the bowel. Suboptimal assessment of the small and l arge bowel due to paucity of intra-abdominal fat and lack of oral contrast and IV contrast demonstrat ion. Markedly hyperdense/calcified structure is seen at the anterior aspect of the left psoas muscle inseparable from the described cystic structure at the lower pole of the left kidney measuring 4.4 x 6.5 cm compared to 3.7 x 5.7 mm previously. It could represent dense contrast within small bowel yet soft tissue lesion with dense calcification or other calcified neoplastic process can't be excluded. The interval progression is concerning. OTHER: Scattered arterial atherosclerotic calcifications. No sizable ascites. Suspected left scrotal hydrocele. IMPRESSION: 1. Interval insertion of the left-sided double-J ureteric stent with residual few stone fragments in the left upper ureter as described above. 2. Interval progression of the cystic structure at the lower pole of the left kidney which could repr esent progressive a urinoma however other cystic lesion or internal bleeding cannot be excluded as d escribed above. 3. Progression of markedly hyperdense/calcified structure in the left retroperitoneum as detailed abo ve. It could be related to contrast within small bowel yet it is concerning for calcified soft tissue lesion or calcified neoplastic process. This is suboptimally assessed due to the lack of oral and IV contrast administration. Recommend further PET/CT scan assessment. Other interval changes and incide ntal findings as described above.
== END | disposition home or self-care (01) ==
LOC: RADCTMAIN 14:12
PROVIDERS: ATTEND Urology
DX: N20.1 Calculus of ureter (principal); N28.1 Cyst of kidney, acquired
CPT/HCPCS: 74176

== ENCOUNTER → 2022-01-26 | Outpatient (CLI) | payer MEDICARE ==
--- NOTE | 2022-01-26 13:51 | CT ---
EXAMINATION TYPE: CT chest wo con DATE OF EXAM: 01/26/2022 COMPARISON: 01/02/2021 HISTORY: Thoracic aortic aneurysm without rupture. Patient having no complaints at time of scan. CT DLP: 221 mGycm. Automated Exposure Control for Dose Reduction was Utilized. TECHNIQUE: CT scan of the thorax is performed without IV contrast. FINDINGS: The lungs are clear of consolidative, interstitial or masslike density. There is a 3 to 4 mm subpleur al parenchymal nodule in the right upper lobe medially which was seen previously and is stable. The ascending thoracic aorta remain stable at 4 cm in AP dimension. There is no mediastinal, hilar or axillary adenopathy. There are postsurgical changes at the gastroesophageal junction which are stable. Limited scanning the upper abdomen reveals interval development of marked left hydronephrosis. There is a stent within the left renal collecting system and proximal ureter. Given the lack of contrast evaluation is limited but there appears to be a large perinephric fluid co llection posterior to the left kidney which could represent a urinoma. Hemorrhage is not excluded. IMPRESSION: 1. Stable mild aneurysmal dilatation of the ascending thoracic aorta. 2. Stable tiny right upper lobe pulmonary nodule. 3. Stable gastroesophageal surgical changes. 4. Interval development of marked left hydronephrosis with a ureteral stent identified within the pro ximal left ureter and collecting system. There is a large perinephric fluid collection which could re present a urinoma or hemorrhage, correlation is recommended.
== END | disposition home or self-care (01) ==
LOC: RADCTMAIN 13:16
PROVIDERS: ATTEND Surgery
DX: I71.2 Thoracic aortic aneurysm, without rupture (principal); R91.1 Solitary pulmonary nodule; N13.30 Unspecified hydronephrosis
CPT/HCPCS: 71250

== ENCOUNTER 2022-03-27 20:39 | Emergency (ER) | payer MEDICARE ==
[2022-03-27 23:21] VITALS: TEMP 97.9
[2022-03-28] MEDS ORDERED: KETOROLAC 15 MG/ML 1 ML VIAL IVP STA (00:23)
[2022-03-28] MEDS ORDERED: ONDANSETRON 4 MG/2 ML VIAL IVP STA (00:23)
[2022-03-28] MEDS ORDERED: SODIUM CHLORIDE 0.9% 1,000 ML IV STA (00:23)
--- NOTE | 2022-03-28 00:27 | ED ---
General Adult HPI <Iban Samuels - Last Filed: 03/28/22 06:06> - General Source: patient, RN notes reviewed Mode of arrival: ambulatory <Brittney Riley - Last Filed: 03/30/22 00:37> - General Chief complaint: Abdominal Pain Stated complaint: L sided abd swelling,back pain Time Seen by Provider: 03/27/22 23:46 - History of Present Illness Initial comments: 66-year-old male presents to emergency department for evaluation of left sided abdominal pain that has been an ongoing issue for the past 2 years. Patient states he has a known kidney stone that has been unsuccessfully operated on twice. States he feels as if he "is swollen on the inside." Reports discomfort wraps around to the left flank and extends to the left testicle. States he has been seen by his PCP and urology in the past, though none recently. Denies fever, chills, headache, chest pain, difficulty breathing, diarrhea, constipation, dysuria, hematuria, and urinary retention. (Brittney Riley) - Related Data Home Medications Medication Instructions Recorded Confirmed atenoloL [Atenolol] 50 mg PO QAM 09/17/16 11/27/21 Albuterol Sulfate [Proair Hfa] 1 puff INHALATION DIRECTED PRN 07/28/20 11/27/21 hydroCHLOROthiazide 12.5 mg PO QAM 07/28/20 11/27/21 Multivit,Calc,Min/FA/K1/Lycop 1 each PO DAILY 09/13/21 11/27/21 [One-A-Day Men's Complete Tab] lisinopriL [Zestril] 40 mg PO DAILY 09/13/21 11/27/21 Previous Rx's Medication Instructions Recorded Omeprazole [PriLOSEC] 40 mg PO DAILY #90 cap 09/18/21 Cephalexin [Keflex] 500 mg PO Q12HR #10 cap 11/27/21 traMADol HCl [Ultram] 50 mg PO Q6HR PRN 3 Days #8 tab 11/27/21 Allergies Allergy/AdvReac Type Severity Reaction Status Date / Time alcohol Allergy Anaphylaxis Verified 03/27/22 23:21 strawberry Allergy Rash/Hives Verified 03/27/22 23:21 Review of Systems ROS Other: All systems not noted in ROS Statement are negative. <Iban Samuels - Last Filed: 03/28/22 06:06> ROS Other: All systems not noted in ROS Statement are negative. <Brittney Riley - Last Filed: 03/30/22 00:37> ROS Statement: Those systems with pertinent positive or pertinent negative responses have been documented in the HPI. Past Medical History Past Medical History: Asthma, Hypertension, Liver Disease Additional Past Medical History / Comment(s): Hepatitis C. Back pain/bulging discs/numbness down R leg. GASTRIC ULCER, arthritis History of Any Multi-Drug Resistant Organisms: None Reported Past Surgical History: Back Surgery, Bariatric Surgery, Heart Catheterization, Orthopedic Surgery Additional Past Surgical History / Comment(s): Gastric bypass - 2000. R rotator cuff repair X2. R knee arthroscopy. R carpal tunnel release. Cardiac cath- normal Past Anesthesia/Blood Transfusion Reactions: No Reported Reaction, Motion Sickness Past Psychological History: Anxiety Smoking Status: Former smoker Past Alcohol Use History: None Reported Past Drug Use History: Marijuana - Past Family History Father Family Medical History: Hypertension Additional Family Medical History / Comment(s): ETOH abuse Mother Family Medical History: Dementia <Brittney Riley - Last Filed: 03/30/22 00:37> General Exam Limitations: no limitations (Well-developed, well-nourished male in no acute distress. Initial temperature 97.9, pulse 66, respirations 15, blood pressure 129/81, pulse ox 98% on room air.) General appearance: alert, in no apparent distress ENT exam: Present: normal exam, normal oropharynx Neck exam: Present: normal inspection, full ROM. Absent: tenderness, meningismus, lymphadenopathy Respiratory exam: Present: normal lung sounds bilaterally. Absent: respiratory distress, wheezes, rales, rhonchi, stridor Cardiovascular Exam: Present: regular rate, normal rhythm, normal heart sounds. Absent: systolic murmur, diastolic murmur, rubs, gallop, clicks GI/Abdominal exam: Present: soft, tenderness (Left flank mildly tender upon palpation), normal bowel sounds. Absent: distended, guarding, rebound, rigid exam: Present: scrotal swelling (left side scrotal swelling baseline for pt; non-erythematous, minimally uncomfortable), other (small, nontender, mobile lymph nodes palpable bilateral inguinal areas). Absent: testicular tenderness, urethral discharge Extremities exam: Present: normal inspection, full ROM, normal capillary refill. Absent: pedal edema Back exam: Present: CVA tenderness (L) Neurological exam: Present: alert, oriented X3, CN II-XII intact, normal gait Psychiatric exam: Present: normal affect, normal mood Skin exam: Present: warm, dry, intact, normal color. Absent: rash <Brittney Riley - Last Filed: 03/30/22 00:37> Course <Brittney Riley - Last Filed: 03/30/22 00:37> Vital Signs 03/27/22 03/28/22 23:11 06:08 Temperature 97.9 F Pulse Rate 66 54 L Respiratory 15 16 Rate Blood Pressure 129/81 135/75 O2 Sat by Pulse 98 98 Oximetry - Reevaluation(s) Reevaluation #1: 03/28/22 01:30 Discussed this patient's care my attending, Dr. Samuels. CT will be ordered without contrast due to chronic kidney disease and GFR 44. Patient is agreeable with this plan of care. 03/28/22 04:00 Patient asleep. Appears to be resting comfortably. CT pending. 03/28/22 04:56 Upon reassessment, patient is resting comfortably and is moving freely. This patient's care will be handed off to my attending, Dr. Samuels. (Brittney Riley) Medical Decision Making - Lab Data Result diagrams: 03/28/22 00:34 03/28/22 00:34 <Iban Samuels - Last Filed: 03/28/22 06:06> - Lab Data Result diagrams: 03/28/22 00:34 03/28/22 00:34 - Radiology Data Radiology results: report reviewed, image reviewed <Brittney Riley - Last Filed: 03/30/22 00:37> - Medical Decision Making This is a 66-year-old male with a past medical history of asthma, hypertension, liver disease, and hep C who presents to the emergency department for evaluation of ongoing left flank pain. Patient reports known renal calculi, but states he is growing increasingly distended on the left side and is moderately unco mfortable. Also complains of left sided scrotal swelling which has been constant since 2019. Patient has not been compliant with his urological follow-up care. A thorough review of his chart does reveal previous finding of possible urinoma and uretral stricture. Discussed findings of laboratory studies including renal impairment which has been present for the past year. Health literacy is limited. Given Toradol and Zofran with improvement. Implored to follow up with urology as soon as possible to review findings from the visit and to develop a further plan of care. Remainder of disposition per Dr. Samuels. ([facility]) - Lab Data Lab Results 03/27/22 03/28/22 03/28/22 Range/Units 23:59 00:34 00:34 WBC 7.3 (3.8-10.6) k/uL RBC 4.07 L (4.30-5.90) m/uL Hgb 12.5 L (13.0-17.5) gm/dL Hct 38.4 L (39.0-53.0) % MCV 94.3 (80.0-100.0) fL MCH 30.8 (25.0-35.0) pg MCHC 32.6 (31.0-37.0) g/dL RDW 12.7 (11.5-15.5) % Plt Count 204 (150-450) k/uL MPV 8.4 Neutrophils % 72 % Lymphocytes % 18 % Monocytes % 5 % Eosinophils % 4 % Basophils % 1 % Neutrophils # 5.2 (1.3-7.7) k/uL Lymphocytes # 1.3 (1.0-4.8) k/uL Monocytes # 0.3 (0-1.0) k/uL Eosinophils # 0.3 (0-0.7) k/uL Basophils # 0.0 (0-0.2) k/uL Sodium 137 (137-145) mmol/L Potassium 4.4 (3.5-5.1) mmol/L Chloride 105 (98-107) mmol/L Carbon Dioxide 25 (22-30) mmol/L Anion Gap 7 mmol/L BUN 36 H (9-20) mg/dL Creatinine 1.58 H (0.66-1.25) mg/dL Est GFR (CKD-EPI)AfAm 51 (>60 ml/min/1.73 sqM) Est GFR (CKD-EPI)NonAf 44 (>60 ml/min/1.73 sqM) Glucose 92 (74-99) mg/dL Calcium 8.6 (8.4-10.2) mg/dL Total Bilirubin 0.2 (0.2-1.3) mg/dL AST 20 (17-59) U/L ALT 9 (4-49) U/L Alkaline Phosphatase 188 H (38-126) U/L Total Protein 6.5 (6.3-8.2) g/dL Albumin 3.8 (3.5-5.0) g/dL Urine Color Yellow Urine Appearance Clear (Clear) Urine pH 5.5 (5.0-8.0) Ur Specific [place] 1.019 (1.001-1.035) Urine Protein 1+ H (Negative) Urine Glucose (UA) Negative (Negative) Urine Ketones Negative (Negative) Urine Blood Small H (Negative) Urine Nitrite Negative (Negative) Urine Bilirubin Negative (Negative) Urine Urobilinogen <2.0 (<2.0) mg/dL Ur Leukocyte Esterase Large H (Negative) Urine RBC 15 H (0-5) /hpf Urine WBC 31 H (0-5) /hpf Urine WBC Clumps Occasional H (None) /hpf Urine Mucus Rare H (None) /hpf - Radiology Data Continued interval progression of the low dense probably cystic structure or mass below the lower pole of the left kidney which could represent progressive urinoma, however, other cystic lesion or internal bleeding cannot be excluded as described. Neoplasm is in differential. Continued progression of markedly hyperdense/calcified structure in the left retroperitoneum as detailed above. Concerning for calcified soft tissue lesion or calcified neoplastic process. W orsening local mass effect is present. Strict clinical correlation advised. (Brittney Riley) Disposition Is patient prescribed a controlled substance at d/c from ED?: No <Iban Samuels - Last Filed: 03/28/22 06:06> Is patient prescribed a controlled substance at d/c from ED?: No <Brittney Riley - Last Filed: 03/30/22 00:37> Clinical Impression: Left flank pain, Swelling of left testicle, Left kidney mass Disposition: HOME SELF-CARE Condition: Stable Instructions (If sedation given, give patient instructions): Flank Pain (ED) Additional Instructions: Following up with urology is of utmost importance. Your laboratory studies are unchanged from your baseline. Return to the emergency department with any new, worsening, or concerning symptoms. Referrals: Rinku Magallon MD [STAFF PHYSICIAN] - 1-2 days Kavita Sequeira DO [Primary Care Provider] - 1-2 days Andrea Tim MD [STAFF PHYSICIAN] - 1-2 days
[2022-03-28 00:52] LABS: Basophils % (A) 1 %; Eosinophils # (A) 0.3 k/uL (0-0.7); Eosinophils % (A) 4 %; HCT 38.4 % (39.0-53.0); HGB 12.5 gm/dL (13.0-17.5); Lymphocytes # (A) 1.3 k/uL (1.0-4.8); Lymphocytes % (A) 18 %; MCH 30.8 pg (25.0-35.0); MCHC 32.6 g/dL (31.0-37.0); MCV 94.3 fL (80.0-100.0); Mean Platelet Volume 8.4; Monocytes # (A) 0.3 k/uL (0-1.0); Monocytes % (A) 5 %; Neutrophils # (A) 5.2 k/uL (1.3-7.7); Neutrophils % (A) 72 %; Platelet Count 204 k/uL (150-450); RBC 4.07 m/uL (4.30-5.90); RDW 12.7 % (11.5-15.5); WBC 7.3 k/uL (3.8-10.6)
[2022-03-28 00:59] LABS: Albumin 3.8 g/dL (3.5-5.0); Calcium 8.6 mg/dL (8.4-10.2); Potassium 4.4 mmol/L (3.5-5.1); Total Bilirubin 0.2 mg/dL (0.2-1.3); Total Protein 6.5 g/dL (6.3-8.2)
[2022-03-28 01:05] LABS: Appearance,Urine Clear (Clear); Bilirubin,Urine Negative (Negative); Blood,Urine Small (Negative); Color,Urine Yellow; Glucose,Urine (UA) Negative (Negative); Ketones,Urine Negative (Negative); Leukocyte Esterase,Urine Large (Negative); Mucus,Urine Rare /hpf; Nitrite,Urine Negative (Negative); PH, Urine 5.5 (5.0-8.0); Protein,Urine 1+ (Negative); RBC,Urine 15 /hpf (0-5); Specific Gravity,Urine 1.019 (1.001-1.035); Urobilinogen,Urine <2.0 mg/dL (<2.0); WBC,Urine 31 /hpf (0-5)
--- NOTE | 2022-03-28 05:35 | CT ---
EXAMINATION TYPE: CT abdomen pelvis wo con DATE OF EXAM: 03/28/2022 HISTORY: Left flank pain. CT DLP: 424.2 mGycm. Automated Exposure Control for Dose Reduction was Utilized. TECHNIQUE: CT scan of the abdomen and pelvis is performed without oral or IV contrast. COMPARISON: CT abdomen and pelvis December 27, 2021 and older CTs FINDINGS: Within the limitations of a non-contrast study, the following observations are made. LUNG BASES: Mild bibasilar linear scarring posteriorly redemonstrated. LIVER/GB: Occasional tiny thin-walled cysts throughout the liver again seen. PANCREAS: No significant abnormality is seen. SPLEEN: No significant abnormality is seen. ADRENALS: No significant abnormality is seen. KIDNEYS: A few tiny calcifications centrally in the right kidney are redemonstrated suspicious for ca lculi. No right-sided hydronephrosis. No significant change from prior. Interval continued progression of the previously seen large lobulated cyst/cystic structure below the lower pole of the left kidney measuring approximately 16.4 x 15.1 cm axial image 61 axis versus 12.4 x 10.2 cm axial image 31. Areas of heterogeneous hyperdensity redemonstrated. Persistent double-J le ft ureteric stent, is deviated anteriorly similar to prior. Lobulated calcific density just medial, i nferior rand there is redemonstrated measuring 7.9 x 6.4 cm axial image 88 slightly larger in size fr om prior study anterior to this. Etiology uncertain but in the left retroperitoneum with continued in creasing size and mass effect since September 11, 2021. Slow growing size suggests neoplasm though yossi ology is not entirely certain. Correlate clinically. BOWEL: Suboptimal evaluation of bowel without enteric contrast. No suspicious solid or cystic mass is seen. Surgical sutures from gastric bypass procedure epigastric region redemonstrated with mild/mode rate distal esophageal dilatation. GENITAL ORGANS: Enlarged prostate consistent with BPH redemonstrated. LYMPH NODES: No greater than 1cm abdominal or pelvic lymph nodes are appreciated. OSSEOUS STRUCTURES: Spine is straightened with ossific fusion at L2-L3 and L3-L4 levels. Advanced dis c space narrowing with sclerosis and vacuum disc phenomenon at L4-L5 level. Moderate axial joint spac e loss and acetabular spurring of both hips is present. OTHER: No significant additional abnormality is seen. IMPRESSION: Continued Interval progression of the low dense probable cystic structure or mass below t he lower pole of the left kidney which could represent progressive a urinoma however other cystic les ion or internal bleeding cannot be excluded as described above. Neoplasm is in differential. Continu ed progression of markedly hyperdense/calcified structure in the left retroperitoneum as detailed abo ve. It is concerning for calcified soft tissue lesion or calcified neoplastic process. Worsening loca l mass effect is present. Strict clinical correlation advised.
[2022-03-28 06:09] VITALS: BP 135/75; PULSE 54; RESP 16
== END 2022-03-28 06:13 | disposition home or self-care (01) ==
LOC: EC 20:39
DX: N50.89 Other specified disorders of the male genital organs (principal); N28.89 Other specified disorders of kidney and ureter; I10 Essential (primary) hypertension; J45.909 Unspecified asthma, uncomplicated; Z87.891 Personal history of nicotine dependence; Z88.8 Allergy status to other drugs, medicaments and biological substances; Z91.018 Allergy to other foods; Z79.899 Other long term (current) drug therapy
CPT/HCPCS: 36415; 80053; 85025; 81001; 87086; 74176; 99284; 96374; 96375; 96361; J2405; J1885

== ENCOUNTER → 2022-07-06 | Outpatient (CLI) | payer MEDICARE ==
--- NOTE | 2022-07-10 09:56 | PE ---
[facility] PET/CT HISTORY: Renal cell carcinoma, initial Patient received 11.9 mCi F-18 FDG intravenously and delayed scanning was performed from the skull ba se to the mid thighs. Localization and attenuation correction CT was performed. Correlation to CT scan 03/28/2022. Average mediastinal uptake SUV 1.30, average liver uptake SUV 2.0 Neck and chest: There is no abnormal uptake. No evident pleural or pericardial effusion. No evident l you mass. No cervical or supraclavicular adenopathy. No axillary adenopathy. Prominence of pulmonary artery may be indicative of pulmonary artery hypertension. ABDOMEN: There is a large mass present in the left hemiabdomen, likely retroperitoneal SUV only 1.9-2 .3. Extensive irregular calcification is present in the central abdomen. Uptake is primarily along th e areas of calcification. SUV is 4.8. There is a left ureteral stent in place which is displaced medi ally and in a cephalad direction. Nonobstructive calcifications are present within the right kidney. Postop changes are noted, there is thickening of the distal esophagus, surgical clips are present at the gastroesophageal junction, is likely post gastric sleeve change. Uptake along the bowel is felt likely to be physiologic. No pelvic adenopathy. Large hydrocele noted in the scrotum. Osseous structures show no suspicious uptake. No evident lytic or blastic lesion. Degenerative disc c hanges, spinal curvature, facet arthropathy noted in the visualized lumbar spine. Suspect postop bahena ge to the right shoulder, correlate. Inflammatory change present in the right maxillary sinus, correl ate for maxillary sinusitis. IMPRESSION: Findings as described, origin of the mass is not identified with certainty, likely retrop eritoneal.
== END | disposition home or self-care (01) ==
LOC: RADPETMAIN 08:18
PROVIDERS: ATTEND Internal Medicine
DX: R19.00 Intra-abdominal and pelvic swelling, mass and lump, unspecified site (principal)
CPT/HCPCS: 78815; A9552

== ENCOUNTER 2022-07-30 08:40 | Day surgery (SDC) | payer MEDICARE ==
[2022-07-30 09:35] VITALS: TEMP 97.5
[2022-07-30 09:37] LABS: Mean Platelet Volume 8.6; Platelet Count 250 k/uL (150-450)
[2022-07-30 09:49] LABS: INR 0.9 (<1.2); Prothrombin Time 10.3 sec (9.0-12.0)
[2022-07-30] MEDS ORDERED: HYDROmorphone 0.5 MG/0.5 ML SYRINGE IVP PRN (10:23)
[2022-07-30 11:05] VITALS: BP 135/82; PULSE 57; RESP 20
--- NOTE | 2022-07-30 11:12 | CT ---
EXAMINATION TYPE: CT biopsy abdomen percutaneous DATE OF EXAM: 07/30/2022 COMPARISON: NONE HISTORY: Large left retroperitoneal mass CT DLP: 647mGycm The procedure was explained to the patient. The risks, complications, benefits, and alternatives wer e discussed and any questions were answered. Informed consent was obtained. Patient was placed pron e on the CT table and prepped and draped in the usual sterile fashion. All elements of maximal barrier and sterile technique utilized. Utilizing CT guidance, an 18 gauge core biopsy needle access into a large left retroperitoneal mass w as achieved and a single 18 gauge core sample was obtained. The patient was stable throughout the pr ocedure and remained stable upon discharge. IMPRESSION: 1. Successful 18 gauge core biopsy of the large left retroperitoneal mass.
== END 2022-07-30 10:45 | disposition home or self-care (01) ==
LOC: RADPROMAIN 08:40
PROVIDERS: ATTEND Internal Medicine
DX: R19.09 Other intra-abdominal and pelvic swelling, mass and lump (principal)
CPT/HCPCS: 88305; 85049; 85610; 88342; 88341; 36415; 49180; 77012; J1170

== ENCOUNTER 2022-10-09 09:54 | Emergency (ER) | payer MEDICARE ==
[2022-10-09 10:01] VITALS: RESP 18; TEMP 97.4
--- NOTE | 2022-10-09 10:37 | ED ---
General Adult HPI - General Source: patient Mode of arrival: ambulatory Limitations: no limitations <Juliane Carey - Last Filed: 10/09/22 10:30> - General Source: patient, RN notes reviewed, old records reviewed <Peter Sequeira - Last Filed: 10/09/22 15:58> - General Chief complaint: Abdominal Pain Stated complaint: abd swelling & pain Time Seen by Provider: 10/09/22 10:31 - History of Present Illness Initial comments: 66 year old male with a history of newly diagnosed liposarcoma Cancer in the emergency department the chief complaint of worsening abdominal pain that is tender to palpation. 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 Denies any nausea or vomiting. Denies any chest pain, shortness breath. He is due to follow-up with [facility] outpatient for further workup later this month in early next month. Presents today over concern for pain. Is seeking pain relief. Has no urinary complaints. No other acute lites at this time. Patient was initially seen in triage and quick note performed. (Peter Sequeira) - Related Data Home Medications Medication Instructions Recorded Confirmed atenoloL [Atenolol] 50 mg PO DAILY 09/17/16 10/09/22 Albuterol Sulfate [Proair Hfa] 2 puff INHALATION RT-Q4H PRN 07/28/20 10/09/22 hydroCHLOROthiazide 12.5 mg PO DAILY 07/28/20 10/09/22 lisinopriL [Zestril] 40 mg PO DAILY 09/13/21 10/09/22 Omeprazole 40 mg PO DAILY PRN 10/09/22 10/09/22 Previous Rx's Medication Instructions Recorded HYDROcodone/APAP 5-325MG [[place] 1 tab PO Q6HR PRN 3 Days #12 tab 10/09/22 5-325] Allergies Allergy/AdvReac Type Severity Reaction Status Date / Time alcohol Allergy Anaphylaxis Verified 10/09/22 11:46 strawberry Allergy Rash/Hives Verified 10/09/22 11:46 Review of Systems ROS Other: All systems not noted in ROS Statement are negative. <Juliane Carey - Last Filed: 10/09/22 10:30> ROS Other: All systems not noted in ROS Statement are negative. <Peter Sequeira - Last Filed: 10/09/22 15:58> ROS Statement: Those systems with pertinent positive or pertinent negative responses have been documented in the HPI. Review of Systems: CONST: Denies fever EYES: Denies blurry vision ENT: Denies nasal congestion C/V: Denies Chest pain RESP: Denies shortness of breath GI: Endorses abdominal pain : Denies dysuria SKIN: Denies rash. MSK: Denies joint pain. NEURO: Denies headache (Peter Sequeira) Past Medical History Past Medical History: Asthma, GERD/Reflux, Hypertension, Liver Disease Additional Past Medical History / Comment(s): Hepatitis C. Back pain/bulging discs/numbness down R leg. GASTRIC ULCER, arthritis, kidney stone with failed lithotripsy X2, calcificed abdominal mass History of Any Multi-Drug Resistant Organisms: None Reported Past Surgical History: Back Surgery, Bariatric Surgery, Heart Catheterization, Orthopedic Surgery Additional Past Surgical History / Comment(s): Gastric bypass - 1999. R rotator cuff repair X2. R knee arthroscopy. R carpal tunnel release. Cardiac cath- normal, lithrotripsy x2 failed. Past Anesthesia/Blood Transfusion Reactions: No Reported Reaction, Motion Sickness Past Psychological History: Anxiety Smoking Status: Current some day smoker Past Alcohol Use History: None Reported Past Drug Use History: Marijuana - Past Family History Father Family Medical History: Hypertension Additional Family Medical History / Comment(s): ETOH abuse Mother Family Medical History: Dementia <Juliane Carey - Last Filed: 10/09/22 10:30> General Exam Limitations: no limitations <Juliane Carey - Last Filed: 10/09/22 10:30> <Peter Sequeira - Last Filed: 10/09/22 15:58> - General Exam Comments Initial Comments: General: Appears in no acute distress. HEAD: Normal with no signs of head trauma. EYES: PERRLA, EOMI, conjunctiva normal, no discharge. ENT: Hearing grossly intact, normal oropharynx. RESPIRATORY: Clear breath sounds bilaterally. No wheezes, rales, or rhonchi. C/V: Regular rate and rhythm. S1 and S2 auscultated, no edema, peripheral pulses 2+ and intact throughout ABD: Soft, slightly tender to palpation mostly in the epigastric region. Nondistended. No guarding. No rebound tenderness. EXT: Normal range of motion, no obvious deformity SKIN: No rashes or lesions observed on exposed skin. NEURO: Alert and oriented 4. No focal deficits. (Peter Sequeira) Course Vital Signs 10/09/22 10/09/22 10/09/22 09:58 13:00 14:33 Temperature 97.4 F L Pulse Rate 65 72 79 Respiratory 18 18 18 Rate Blood Pressure 148/78 143/80 135/80 O2 Sat by Pulse 99 99 99 Oximetry Medical Decision Making - Lab Data Result diagrams: 10/09/22 11:47 10/09/22 11:47 <Peter Sequeira - Last Filed: 10/09/22 15:58> - Medical Decision Making Patient is a 66-year-old male that presents complaining of intra-abdominal cancer. He has worsening pain and presented is enlarged. I did offer and CT imaging at this time as this has progressively gotten worse last week and he accepted. We will obtain abdominal laboratory studies. We did discuss goals of care on this visit and he understands the pain will not be clearly resolved but he is hoping to get some relief. Is due to follow up outpatient with his oncology team. He was in agreement this plan. Vital signs within except for limits. Laboratory studies were remarkable for CK D which is chronic and unchanged from prior. Remainder of labs are unremarkable. Patient does have a chronic anemia. CT of the abdomen and pelvis does redemonstrate the retroperitoneal mass. The radiology team believes it is somewhat enlarged at this time. On reevaluation, patient is feeling somewhat improved following morphine. I discussed his workup with him. He would like to follow up outpatient. I believe this is reasonable. I will provide him with a prescription for [place]. He has contact information for follow-up. Patient was in agreement this plan. Patient and I discussed that his labs and imaging show an already known cancer that does appear to be enlarging which the patient is aware of. Does have prearranged follow-up outpatient already for the next week in early October. I believe it is safe for him to be discharged home as long as he makes his appointments and he would like to go home. He was in agreement with the plan. Strict return precautions were discussed. I will provide the patient with a prescription for [place] 5. I instructed the patient to follow up with their PCP in the next 1-3 days. I explained that the patient should return to the emergency department if they experience any worsening symptoms. Strict return precautions were discussed with the patient. The patient expressed understanding of these instructions. I answered all questions that the patient had. The patient was discharged home in fair condition with their prescriptions and follow up information. Was pt. sent in by a medical professional or institution (, RAMYA, HIGHBALLER, urgent care, hospital, or shelter...) When possible be specific @ -No Did you speak to anyone other than the patient for history (EMS, parent, family, police, friend...)? What history was obtained from this source @ -No Did you review nursing and triage notes (agree or disagree)? Why? @ -I reviewed and agree with nursing and triage notes Were old charts reviewed (outside hosp., previous admission, EMS record, old EKG, old radiological studies, urgent care reports/EKG's, shelter records)? Report findings @ -Yes, old imaging was reviewed. Specifically the PET scan from June [address] from January 2022. Differential Diagnosis (chest pain, altered mental status, abdominal pain women, abdominal pain men, vaginal bleeding, weakness, fever, dyspnea, syncope, hea dache, dizziness, GI bleed, back pain, seizure, CVA, palpatations, mental health)? @ -Abdominal pain secondary to cancer, worsening metastatic disease, this list is not all inclusive. EKG interpreted by me (3pts min.). @ -None done X-rays interpreted by me (1pt min.). @ -None done CT interpreted by me (1pt min.). @ -CT abdomen and pelvis redemonstrated the retroperitoneal mass. Appears to be larger than previous. U/S interpreted by me (1pt. min.). @ -None done What testing was considered but not performed or refused? (CT, X-rays, U/S, labs)? Why? @ -None What meds were considered but not given or refused? Why? @ -None Did you discuss the management of the patient with other professionals (professionals i.e. , RAMYA, HIGHBALLER, lab, RT, psych nurse, social media campaign manager, fraud examiner, teacher, sea air land officer, case packer and sealer)? Give summary @ -No Was smoking cessation discussed for >3mins.? @ -No Was critical care preformed (if so, how long)? @ -No Were there social determinants of health that impacted care today? How? (Homeles sness, low income, unemployed, alcoholism, drug addiction, transportation, low edu. Level, literacy, decrease access to med. care, correction, rehab)? @ -No Was there de-escalation of care discussed even if they declined (Discuss DNR or withdrawal of care, Hospice)? DNR status @ -No What co-morbidities impacted this encounter? (DM, HTN, Smoking, COPD, CAD, Cancer, CVA, ARF, Chemo, Hep., AIDS, mental health diagnosis, sleep apnea, morbid obesity)? @ -History of retroperitoneal cancer, liposarcoma Was patient admitted / discharged? Hospital course, mention meds given and route, prescriptions, significant lab abnormalities, going to OR and other pertinent info. @ -Discharged home for outpatient follow-up with his preestablished oncology team. See above for emergency Department course. Undiagnosed new problem with uncertain prognosis? @ -No Drug Therapy requiring intensive monitoring for toxicity (Heparin, Nitro, Insulin, Cardizem)? @ -No Were any procedures done? @ -No Diagnosis/symptom? @ -Intra-abdominal cancer, liposarcoma Acute, or Chronic, or Acute on Chronic? @ -Acute on chronic Uncomplicated (without systemic symptoms) or Complicated (systemic symptoms)? @ -Complicated Side effects of treatment? @ -No Exacerbation, Progression, or Severe Exacerbation? @ -No Poses a threat to life or bodily function? How? (Chest pain, [place], [place], pneumonia, PE, COPD, DKA, ARF, appy, cholecystitis, CVA, Diverticulitis, Homicidal, Suicidal, threat to staff... and all critical care pts) @ -Yes, if this progresses can result in significant morbidity and mortality. Diagnosis/symptom? @ -Abdominal pain secondary to cancer Acute, or Chronic, or Acute on Chronic? @ -Acute on chronic Uncomplicated (without systemic symptoms) or Complicated (systemic symptoms)? @ -Complicated Side effects of treatment? @ -none Exacerbation, Progression, or Severe Exacerbation] @ -no Poses a threat to life or bodily function? @ -Yes, if the cancer progresses can result in significant morbidity and mortality. (Peter Sequeira) - Lab Data Lab Results 10/09/22 10/09/22 10/09/22 Range/Units 11:47 11:47 11:47 WBC 6.0 (3.8-10.6) k/uL RBC 4.07 L (4.30-5.90) m/uL Hgb 11.4 L (13.0-17.5) gm/dL Hct 35.8 L (39.0-53.0) % MCV 87.9 (80.0-100.0) fL MCH 27.9 (25.0-35.0) pg MCHC 31.7 (31.0-37.0) g/dL RDW 14.1 (11.5-15.5) % Plt Count 281 (150-450) k/uL MPV 8.3 Neutrophils % 72 % Lymphocytes % 16 % Monocytes % 5 % Eosinophils % 4 % Basophils % 1 % Neutrophils # 4.3 (1.3-7.7) k/uL Lymphocytes # 1.0 (1.0-4.8) k/uL Monocytes # 0.3 (0-1.0) k/uL Eosinophils # 0.2 (0-0.7) k/uL Basophils # 0.0 (0-0.2) k/uL PT 10.3 (9.0-12.0) sec INR 1.0 (<1.2) APTT 26.6 (22.0-30.0) sec Sodium 138 (137-145) mmol/L Potassium 4.3 (3.5-5.1) mmol/L Chloride 106 (98-107) mmol/L Carbon Dioxide 25 (22-30) mmol/L Anion Gap 7 mmol/L BUN 27 H (9-20) mg/dL Creatinine 1.51 H (0.66-1.25) mg/dL Est GFR (CKD-EPI)AfAm 54 (>60 ml/min/1.73 sqM) Est GFR (CKD-EPI)NonAf 47 (>60 ml/min/1.73 sqM) Glucose 150 H (74-99) mg/dL Calcium 8.8 (8.4-10.2) mg/dL Total Bilirubin 0.5 (0.2-1.3) mg/dL AST 21 (17-59) U/L ALT 12 (4-49) U/L Alkaline Phosphatase 212 H (38-126) U/L Total Protein 7.2 (6.3-8.2) g/dL Albumin 4.0 (3.5-5.0) g/dL Amylase 103 (30-110) U/L Lipase 104 (23-300) U/L Urine Color Urine Appearance (Clear) Urine pH (5.0-8.0) Ur Specific [place] (1.001-1.035) Urine Protein (Negative) Urine Glucose (UA) (Negative) Urine Ketones (Negative) Urine Blood (Negative) Urine Nitrite (Negative) Urine Bilirubin (Negative) Urine Urobilinogen (<2.0) mg/dL Ur Leukocyte Esterase (Negative) Urine RBC (0-5) /hpf Urine WBC (0-5) /hpf Urine Bacteria (None) /hpf Hyaline Casts (0-2) /lpf Urine Mucus (None) /hpf 10/09/22 Range/Units 13:00 WBC (3.8-10.6) k/uL RBC (4.30-5.90) m/uL Hgb (13.0-17.5) gm/dL Hct (39.0-53.0) % MCV (80.0-100.0) fL MCH (25.0-35.0) pg MCHC (31.0-37.0) g/dL RDW (11.5-15.5) % Plt Count (150-450) k/uL MPV Neutrophils % % Lymphocytes % % Monocytes % % Eosinophils % % Basophils % % Neutrophils # (1.3-7.7) k/uL Lymphocytes # (1.0-4.8) k/uL Monocytes # (0-1.0) k/uL Eosinophils # (0-0.7) k/uL Basophils # (0-0.2) k/uL PT (9.0-12.0) sec INR (<1.2) APTT (22.0-30.0) sec Sodium (137-145) mmol/L Potassium (3.5-5.1) mmol/L Chloride (98-107) mmol/L Carbon Dioxide (22-30) mmol/L Anion Gap mmol/L BUN (9-20) mg/dL Creatinine (0.66-1.25) mg/dL Est GFR (CKD-EPI)AfAm (>60 ml/min/1.73 sqM) Est GFR (CKD-EPI)NonAf (>60 ml/min/1.73 sqM) Glucose (74-99) mg/dL Calcium (8.4-10.2) mg/dL Total Bilirubin (0.2-1.3) mg/dL AST (17-59) U/L ALT (4-49) U/L Alkaline Phosphatase (38-126) U/L Total Protein (6.3-8.2) g/dL Albumin (3.5-5.0) g/dL Amylase (30-110) U/L Lipase (23-300) U/L Urine Color Yellow Urine Appearance Clear (Clear) Urine pH 5.5 (5.0-8.0) Ur Specific [place] 1.018 (1.001-1.035) Urine Protein 1+ H (Negative) Urine Glucose (UA) Negative (Negative) Urine Ketones Negative (Negative) Urine Blood Small H (Negative) Urine Nitrite Negative (Negative) Urine Bilirubin Negative (Negative) Urine Urobilinogen <2.0 (<2.0) mg/dL Ur Leukocyte Esterase Moderate H (Negative) Urine RBC 34 H (0-5) /hpf Urine WBC 32 H (0-5) /hpf Urine Bacteria Rare H (None) /hpf Hyaline Casts 1 (0-2) /lpf Urine Mucus Rare H (None) /hpf Disposition <Juliane Carey - Last Filed: 10/09/22 10:30> Is patient prescribed a controlled substance at d/c from ED?: Yes When asked, does pt state using other controlled substances?: No If prescribed controlled substance>3 days was MAPS reviewed?: Prescribed <3 Days If opioid is for acute pain is fill amount 7 days or less?: Yes If Rx opioid, was Start Talking consent form obtained?: Yes Time of Disposition: 14:00 <Peter Sequeira - Last Filed: 10/09/22 15:58> Clinical Impression: Abdominal malignancy, Chronic abdominal pain Disposition: HOME SELF-CARE Condition: Fair Prescriptions: HYDROcodone/APAP 5-325MG [[place] 5-325] 1 tab PO Q6HR PRN 3 Days #12 tab PRN Reason: Pain Referrals: Mahesh Fernandes MD [Primary Care Provider] - 1-2 days
[2022-10-09 12:17] LABS: Calcium 8.8 mg/dL (8.4-10.2); Potassium 4.3 mmol/L (3.5-5.1); Total Bilirubin 0.5 mg/dL (0.2-1.3); Total Protein 7.2 g/dL (6.3-8.2)
[2022-10-09 12:21] LABS: Basophils % (A) 1 %; Eosinophils # (A) 0.2 k/uL (0-0.7); Eosinophils % (A) 4 %; HCT 35.8 % (39.0-53.0); HGB 11.4 gm/dL (13.0-17.5); Lymphocytes % (A) 16 %; MCH 27.9 pg (25.0-35.0); MCHC 31.7 g/dL (31.0-37.0); MCV 87.9 fL (80.0-100.0); Mean Platelet Volume 8.3; Monocytes # (A) 0.3 k/uL (0-1.0); Monocytes % (A) 5 %; Neutrophils # (A) 4.3 k/uL (1.3-7.7); Neutrophils % (A) 72 %; Platelet Count 281 k/uL (150-450); RBC 4.07 m/uL (4.30-5.90); RDW 14.1 % (11.5-15.5)
[2022-10-09 12:43] LABS: Partial Thromboplastin Time 26.6 sec (22.0-30.0); Prothrombin Time 10.3 sec (9.0-12.0)
[2022-10-09 13:33] LABS: Appearance,Urine Clear (Clear); Bacteria,Urine Rare /hpf; Bilirubin,Urine Negative (Negative); Blood,Urine Small (Negative); Color,Urine Yellow; Glucose,Urine (UA) Negative (Negative); Hyaline Casts,Urine 1 /lpf (0-2); Ketones,Urine Negative (Negative); Leukocyte Esterase,Urine Moderate (Negative); Mucus,Urine Rare /hpf; Nitrite,Urine Negative (Negative); PH, Urine 5.5 (5.0-8.0); Protein,Urine 1+ (Negative); RBC,Urine 34 /hpf (0-5); Specific Gravity,Urine 1.018 (1.001-1.035); Urobilinogen,Urine <2.0 mg/dL (<2.0); WBC,Urine 32 /hpf (0-5)
--- NOTE | 2022-10-09 13:48 | CT ---
EXAMINATION TYPE: CT abdomen pelvis w con DATE OF EXAM: 10/09/2022 COMPARISON: 12/27/2021 and more recent PET CT fusion 07/06/2022 HISTORY: Stomach pain CT DLP: 897.8 mGycm CONTRAST: CT scan of the abdomen and pelvis is performed without Oral Contrast and with IV Contrast, patient in jected with 100 mL of Isovue 300. FINDINGS: LUNG BASES-: No visible nodule. No infiltrate. LIVER/GB: No calcified gallstones. No space occupying hepatic lesion. Biliary tree is of normal ca liber. PANCREAS: No inflammation. No distinct mass. SPLEEN: No splenic enlargement. No lesion seen. ADRENALS: No nodule. No thickening. KIDNEYS/BLADDER: Enlarging infiltrative and lobulated retroperitoneal mass measures 24 cm x 23 cm x 1 9 cm and demonstrates interval enlargement. There is also medial calcified component measuring approx imately 10.5 x 8.5 cm. Left-sided double pigtail catheter is noted with moderate to severe left-sided hydronephrosis. The left kidney is displaced laterally and cranially. There is mass effect upon the pancreas and stomach as well as adjacent small and large bowel. BOWEL: There is mass effect upon the pancreas and stomach as well as adjacent small and large bowel. No obvious bowel obstruction. GENITAL ORGANS: No gross abnormality. LYMPH NODES: No greater than 1cm abdominal or pelvic lymph nodes are appreciated. AORTA: No significant abnormality. OSSEOUS STRUCTURES: No significant abnormality is seen. OTHER: No significant additional abnormality is seen. IMPRESSION: 1. Enlarging left-sided retroperitoneal mass with displacement of the left kidney pancreas and adjace nt bowel.
[2022-10-09] MEDS ORDERED: MORPHINE SULFATE 4 MG/ML SYRINGE IVP STA (14:20)
[2022-10-09 14:34] VITALS: BP 135/80; PULSE 79
== END 2022-10-09 14:41 | disposition home or self-care (01) ==
LOC: EC 09:54
DX: C76.2 Malignant neoplasm of abdomen (principal); J45.909 Unspecified asthma, uncomplicated; K21.9 Gastro-esophageal reflux disease without esophagitis; I10 Essential (primary) hypertension; F41.9 Anxiety disorder, unspecified; F17.200 Nicotine dependence, unspecified, uncomplicated; F12.90 Cannabis use, unspecified, uncomplicated; Z79.899 Other long term (current) drug therapy; Z91.048 Other nonmedicinal substance allergy status; Z91.018 Allergy to other foods
CPT/HCPCS: 36415; 80053; 82150; 83690; 85025; 85610; 85730; 81001; 74177; 99284; 96374; J2270; Q9967

== ENCOUNTER → 2022-10-11 | Outpatient (CLI) | payer MEDICARE ==
--- NOTE | 2022-10-11 17:37 | CT ---
EXAMINATION TYPE: CT chest w con DATE OF EXAM: 10/11/2022 COMPARISON: Chest CT January 26, 2022 HISTORY: Liposarcoma. CT DLP: 594 mGycm. Automated Exposure Control for Dose Reduction was Utilized. TECHNIQUE: CT scan of the thorax is performed following with IV Contrast, patient injected with 70cc mL of Isovue 300. FINDINGS: LUNGS: The lungs remain grossly clear, there is no concerning new greater than 5 mm parenchymal mass or nodule identified. There is no pleural effusion or pneumothorax seen. The tracheobronchial tree is patent. MEDIASTINUM: There are no new greater than 1 cm hilar or mediastinal lymph nodes. No cardiomegaly o r pericardial effusion is seen. OTHER: Surgical change at gastroesophageal junction is redemonstrated with stable small sized hiatal hernia and some dilatation and debris in the distal esophagus redemonstrated. There is partial visual ization of large left-sided abdominal mass with significant local mass effect having some calcificati on towards the midline of the posterior mid abdomen. Left kidney is now displaced anteriorly on curre nt study. There is partial visualization of left ureter stent. Dextroconvex scoliosis centered at L3- L4 level is redemonstrated. Spine is straightened on sagittal images. IMPRESSION: No suspicious new thoracic nodules or masses. Large left abdominal heterogeneous mass wit h local mass effect suspected neoplasm is partially imaged.
== END | disposition home or self-care (01) ==
LOC: RADCTMAIN 16:10
PROVIDERS: ATTEND Internal Medicine
DX: C49.9 Malignant neoplasm of connective and soft tissue, unspecified (principal); Z03.89 Encounter for observation for other suspected diseases and conditions ruled out; R19.00 Intra-abdominal and pelvic swelling, mass and lump, unspecified site
CPT/HCPCS: 82565; 84520; 71260; 36415; Q9967

== ENCOUNTER → 2023-03-15 | Outpatient (CLI) | payer MEDICARE ==
--- NOTE | 2023-03-16 21:39 | CT ---
EXAMINATION TYPE: CT chest wo con CT DLP: 749.7 mGycm, Automated exposure control for dose reduction was used. DATE OF EXAM: 03/15/2023 3:20 PM COMPARISON: 10/11/2022 CT CLINICAL INDICATION:Male, 67 years old with history of C49.9 MALIGNANT NEOPLASM OF CONNECTIVE AND SOF T TI; TECHNIQUE: Multiple axial images were obtained through the chest. Sagittal and coronal reformats were created for review. High resolution contiguous 1.5 mm axial images of the chest were obtained in a s upine and prone position. Noncontiguous 1 mm axial images at 10 mm intervals were obtained in supine position in expiration. Coronal and sagittal reformatted images were obtained. No intravenous contras t was administered. Contrast used: mL of (None if empty) Oral contrast used: (None if empty) FINDINGS: LUNGS: Pulmonary nodules are visualized throughout the lungs the largest in the left upper lobe measu ring 15 mm series 9 image 14 is new from 10/11/2022. Additionally right upper lobe medial pulmonary no dule measuring 6 mm series 9 image 122 is also new. Smaller pulmonary nodule measuring 3 mm in the le ft upper lobe also present image 80. There is no evidence of interstitial thickening, significant luz marina undglass opacity, honeycombing or architectural distortion in the lungs. No acute area of infiltrati ve or consolidative change. LARGE AIRWAYS: Central airways are patent. There is bronchial wall thickening most pronounced in the lower lungs. There is mild bronchiectasis within the lung bases. A few opacified large airways most p ronounced in right lower lobe suggestive retained secretions. PLEURA: No pleural effusion or thickening. HEART: Size within normal limits. MEDIASTINUM: No gross evidence of adenopathy. There is a large hiatal hernia present. VASCULATURE: No aortic aneurysm. MUSCULOSKELETAL: No acute osseous abnormalities SOFT TISSUES/LYMPH NODES: Unremarkable. LOWER NECK: No significant findings. UPPER ABDOMEN: See MRI abdomen same day. Multiple metastatic disease sites are present within the matilda er. Ostomy in the anterior abdominal wall noted. Left kidney is not definitively visualized. Previous large left masses no longer visualized and likely surgically absent. IMPRESSION: 1. New pulmonary nodules the largest in the left upper lobe measuring up to 15 mm concerning for met astatic disease. 2. Mild bronchial wall thickening and bronchiectasis suggestive of chronic bronchitis. 3. No evidence for interstitial lung disease related to connective tissue disorder. 4. Moderate hiatal hernia. 5. Mild coronary artery atherosclerosis.
== END | disposition home or self-care (01) ==
LOC: RADMRIMAIN 14:26
PROVIDERS: ATTEND Internal Medicine
DX: C49.9 Malignant neoplasm of connective and soft tissue, unspecified (principal); K44.9 Diaphragmatic hernia without obstruction or gangrene; I25.10 Atherosclerotic heart disease of native coronary artery without angina pectoris; J47.9 Bronchiectasis, uncomplicated; R91.8 Other nonspecific abnormal finding of lung field
CPT/HCPCS: 71250

== ENCOUNTER → 2023-03-15 | Outpatient (CLI) | payer MEDICARE ==
--- NOTE | 2023-03-16 15:20 | MR ---
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 COMPARISON: CT scan abdomen from 03/15/2023. TECHNIQUE: Multiplanar multi-sequence imaging was performed without contrast. IV Contrast: None FINDINGS: LOWER CHEST: No gross irregularity. ABDOMEN Liver: Multiple (greater than 20) hepatic masses are seen throughout the liver the largest in the lef t hepatic lobe measuring 7.1 x 5.5 and the right hepatic lobe near the dome measuring up to 5.6 x 5.1 cm. Gallbladder and Bile ducts: Layering gallstones versus biliary debris in the gallbladder lumen Pancreas: Unremarkable. Spleen: Unremarkable. Adrenal glands: The left adrenal gland is not well visualized. The right adrenal gland is unremarkabl e. Kidneys: Few scattered renal cysts are present in the right kidney. The left kidneys not visualized a nd likely surgically absent. Stomach and Bowel: Ostomy changes to the anterior abdominal wall. No evidence for obstruction. Peritoneum: Large abdominal mass seen on prior CT on 10/09/2022 appears to been surgically removed. T here is a trace amount of fluid throughout the abdomen. Vasculature: Unremarkable. No aortic aneurysm. Musculoskeletal: The osseous structures appear intact. Lymph Nodes: Multiple lymph nodes are visualized. Along the aorta the largest measuring 31 x 27 mm di ffusion weighted imaging series 504 image 152. Abdominal wall: Ostomy changes of the abdominal wall. IMPRESSION: 1. Interval surgical removal/posttreatment changes of the large intra-abdominal mass. There is now m ultiple (greater than 20) metastatic lesions throughout the liver and suspected retroperitoneal lymph adenopathy. 2. Small hiatal hernia. 3. Biliary debris/cholelithiasis.
== END | disposition home or self-care (01) ==
LOC: RADCTMAIN 14:24
PROVIDERS: ATTEND Internal Medicine
DX: C49.9 Malignant neoplasm of connective and soft tissue, unspecified (principal); C78.7 Secondary malignant neoplasm of liver and intrahepatic bile duct; K44.9 Diaphragmatic hernia without obstruction or gangrene; K80.20 Calculus of gallbladder without cholecystitis without obstruction
CPT/HCPCS: 74181